=== PATIENT | male | born 1935 | race Caucasian/White ===

== ENCOUNTER 2016-06-05 09:24 | Outpatient (RCR) | payer MEDICARE, OTHER ==
--- OUTSIDE RECORDS SUMMARY | 2016-03-19 09:25 | XMS REPORT | Continuity of Care Document ---
Author Author [facility] Organization [facility] Address Unknown Phone Unavailable Care Team Providers Care Derrick Boat Captain Name Role Phone EJ GASPAR DO PCP Insurance Providers Payer Name Policy Number Subscriber Name Relationship Wps Medicare [id number] Pat Choi 18 Self / Same As Patient CIGNA [id number] Pat Choi 18 Self / Same As Patient Advance Directives Directive Response Recorded Date/Time Advance Directives No 11/23/13 11:12am Health Care Power of Help Desk Associate No 11/23/13 11:12am Organ Donor No 11/23/13 11:12am Problems No known problems or medical conditions. Medications Medication Dose Route Sig Days/Qty Instructions Order Date Discontinued Date Status Lisinopril 10 Mg PO DAILY 10/23/13 11/19/13 Discontinued [Vicodin 5/325 Mg] 1-2 Tab PO EVERY 4HRS PRN PAIN 30 Qty 10/26/1302/23 Discontinued Lisinopril/Hydrochlorothiazide 0.5 Tab PO DAILY TAKES 1/2 OF (20-12.5) DAILY 11/19/13 Active Cholecalciferol 2,000 Unit PO DAILY 11/19/13 Active Hydrocodone Bit/Acetaminophen 1-2 Each PO EVERY 4HRS PRN PAIN 30 Qty Active Social History Social History Problem Response Recorded Date/Time Recent Foreign Travel No 09/06/2014 1:35pm Hospital Discharge Instructions No hospital discharge instructions. Plan of Care No plan of care. Functional Status No functional status results. Allergies, Adverse Reactions, Alerts Allergen Type Severity Reaction Status Last Updated No Known Drug Allergies Active 10/23/13 Immunizations No immunization records. Vital Signs No known vital signs results. Results Laboratory Results Test Name Result Units Flags Reference Collection Date/Time Result Date/ Time Comments White Blood Count 5.3 10^3/uL 4.3-11.0 09/06/2014 1:50pm 09/06/2014 1: 55pm Red Blood Count 3.82 10^6/uL L 4.35-5.85 09/06/2014 1:50pm 09/06/2014 1: 55pm Hemoglobin 11.7 G/DL L 13.3-17.7 09/06/2014 1:50pm 09/06/2014 1:55pm Hematocrit 35 % L 40-54 09/06/2014 1:50pm 09/06/2014 1:55pm Mean Corpuscular Volume 92 FL 80-99 09/06/2014 1:50pm 09/06/2014 1: 55pm Mean Corpuscular Hemoglobin 31 PG 25-34 09/06/2014 1:50pm 09/06/2014 1: 55pm Mean Corpuscular Hemoglobin Concent 33 G/DL 32-36 09/06/2014 1:50pm 1:55pm Red Cell Distribution Width 14.3 % 10.0-14.5 09/06/2014 1:50pm 2014 1:55pm Platelet Count 192 10^3/uL 130-400 09/06/2014 1:50pm 09/06/2014 1:55pm Mean Platelet Volume 8.4 FL 7.4-10.4 09/06/2014 1:50pm 09/06/2014 1: 55pm Neutrophils (%) (Auto) 64 % 42-75 09/06/2014 1:50pm 09/06/2014 1:55pm Lymphocytes (%) (Auto) 16 % 12-44 09/06/2014 1:50pm 09/06/2014 1:55pm Monocytes (%) (Auto) 12 % 0-12 09/06/2014 1:50pm 09/06/2014 1:55pm Eosinophils (%) (Auto) 8 % 0-10 09/06/2014 1:50pm 09/06/2014 1:55pm Basophils (%) (Auto) 0 % 0-10 09/06/2014 1:50pm 09/06/2014 1:55pm Neutrophils # (Auto) 3.4 X 10^3 1.8-7.8 09/06/2014 1:50pm 09/06/2014 1: 55pm Lymphocytes # (Auto) 0.9 X 10^3 L 1.0-4.0 09/06/2014 1:50pm 09/06/2014 1: 55pm Monocytes # (Auto) 0.6 X 10^3 0.0-1.0 09/06/2014 1:50pm 09/06/2014 1: 55pm Eosinophils # (Auto) 0.4 10^3/uL H 0.0-0.3 09/06/2014 1:50pm 09/06/2014 1 :55pm Basophils # (Auto) 0.0 10^3/uL 0.0-0.1 09/06/2014 1:50pm 09/06/2014 1: 55pm Sodium Level 143 MMOL/L 135-145 09/06/2014 1:50pm 09/06/2014 2:31pm Potassium Level 4.3 MMOL/L 3.6-5.0 09/06/2014 1:50pm 09/06/2014 2:31pm Chloride Level 110 MMOL/L H 98-107 09/06/2014 1:50pm 09/06/2014 2:31pm Carbon Dioxide Level 26 MMOL/L 21-32 09/06/2014 1:50pm 09/06/2014 2: 31pm Anion Gap 7 MMOL/L 5-14 09/06/2014 1:50pm 09/06/2014 2:31pm Blood Urea Nitrogen 19 MG/DL H 7-18 09/06/2014 1:5009/06/2014 2:31pm Creatinine 1.16 MG/DL 0.60-1.30 09/06/2014 1:50pm 09/06/2014 2:31pm BUN/Creatinine Ratio 16 09/06/2014 1:50pm 09/06/2014 2:31pm Estimat Glomerular Filtration Rate > 60 09/06/2014 1:50pm 2014 2:31pm GFR INTERPRETIVE DATA UNITS FOR ESTIMATED GFR (eGFR): mL/min/1.73 M2 REFERENCE RANGE FOR ESTIMATED GFR (eGFR) eGFR NORMAL eGFR >60 MODERATELY DECREASED eGFR 30-59 SEVERLY DECREASED eGFR 15-29 KIDNEY FAILURE <15 (OR DIALYSIS) Glucose Level 108 MG/DL H 70-105 09/06/2014 1:50pm 09/06/2014 2:31pm Calcium Level 9.3 MG/DL 8.5-10.1 09/06/2014 1:50pm 09/06/2014 2:31pm Total Bilirubin 0.5 MG/DL 0.1-1.0 09/06/2014 1:50pm 09/06/2014 2:31pm Alkaline Phosphatase 67 U/L 40-136 09/06/2014 1:5009/06/2014 2:31pm Aspartate Amino Transf (AST/SGOT) 17 U/L 5-34 09/06/2014 1:50pm 2014 2:31pm Alanine Aminotransferase (ALT/SGPT) 8 U/L 0-55 09/06/2014 1:50pm 2014 2:31pm Lactate Dehydrogenase 194 U/L 125-220 09/06/2014 1:5009/06/2014 2: 31pm Total Protein 6.2 G/DL L 6.4-8.2 09/06/2014 1:5009/06/2014 2:31pm Albumin 4.0 G/DL 3.2-4.5 09/06/2014 1:50pm 09/06/2014 2:31pm Procedures No known history of procedures. Encounters Encounter Location Date/Time Discharged Recurring Via [facility] 11/29/14 9:56am
[2016-03-19 09:33] LABS: BASOPHILS % (AUTO) 0 % (0-10); EOSINOPHILS # (AUTO) 0.1 10^3/uL (0.0-0.3); EOSINOPHILS % (AUTO) 3 % (0-10); LYMPHOCYTES % (AUTO) 20 % (12-44); MEAN CORPUSCULAR HEMOGLOBIN 30 PG (25-34); MEAN CORPUSCULAR HGB CONC 33 G/DL (32-36); MEAN CORPUSCULAR VOLUME 91 FL (80-99); MONOCYTES # (AUTO) 0.6 X 10^3 (0.0-1.0); MONOCYTES % (AUTO) 12 % (0-12); NEUTROPHILS # (AUTO) 3.2 X 10^3 (1.8-7.8); NEUTROPHILS % (AUTO) 65 % (42-75); PLATELET COUNT 187 10^3/uL (130-400); RED BLOOD COUNT 4.05 10^6/uL (4.35-5.85); RED CELL DISTRIBUTION WIDTH 13.9 % (10.0-14.5); WHITE BLOOD COUNT 4.9 10^3/uL (4.3-11.0)
[2016-03-19 10:14] LABS: ALBUMIN 3.9 G/DL (3.2-4.5); BILIRUBIN,TOTAL 0.4 MG/DL (0.1-1.0); CALCIUM 8.7 MG/DL (8.5-10.1); CREATININE SERUM 1.18 MG/DL (0.60-1.30); POTASSIUM 3.8 MMOL/L (3.6-5.0); TOTAL PROTEIN 5.7 G/DL (6.4-8.2)
[~2016-06-05 09:24] MED LIST changes: +ACETAMINOPHEN 325 MG TAB (TYLENOL) CANCER CTR PO PRN; +ACETAMINOPHEN 500 MG TAB (TYLENOL) CANCER CTR ONE; -BARIUM SUSPENSION 2.1% (VANILLA SILQ) 450 ML PO ONE; -CATHETER FLUSH 10 ML SYR IV PRN; -IOHEXOL 350 MG/ML 100 ML (OMNIPAQUE 350) VIAL IV ONE; -NS 100 ML (IVPB) BAG IV ONE; +NS IV 500 ML (CANCER CENTER) IV SCH; +diphenhydrAMINE 25 MG TAB (BENADRYL) CANCER CENTER PO SCH; +riTUXimab 500 MG, riTUXimab FOR IV INJ CONC 200 MG in NS (IVPB) CANCER CENTER 163 ML IV SCH
[2016-06-05 09:51] LABS: BASOPHILS % (AUTO) 0 % (0-10); EOSINOPHILS # (AUTO) 0.1 10^3/uL (0.0-0.3); EOSINOPHILS % (AUTO) 2 % (0-10); LYMPHOCYTES # (AUTO) 1.1 X 10^3 (1.0-4.0); LYMPHOCYTES % (AUTO) 20 % (12-44); MEAN CORPUSCULAR HEMOGLOBIN 30 PG (25-34); MEAN CORPUSCULAR HGB CONC 33 G/DL (32-36); MEAN CORPUSCULAR VOLUME 91 FL (80-99); MEAN PLATELET VOLUME 9.3 FL (7.4-10.4); MONOCYTES # (AUTO) 0.5 X 10^3 (0.0-1.0); MONOCYTES % (AUTO) 9 % (0-12); NEUTROPHILS # (AUTO) 3.8 X 10^3 (1.8-7.8); NEUTROPHILS % (AUTO) 68 % (42-75); PLATELET COUNT 182 10^3/uL (130-400); RED BLOOD COUNT 4.23 10^6/uL (4.35-5.85); WHITE BLOOD COUNT 5.5 10^3/uL (4.3-11.0)
[2016-06-05 10:19] LABS: BILIRUBIN,TOTAL 0.5 MG/DL (0.1-1.0); CALCIUM 8.8 MG/DL (8.5-10.1); CREATININE SERUM 1.22 MG/DL (0.60-1.30); TOTAL PROTEIN 5.7 G/DL (6.4-8.2)
== END 2016-06-17 | disposition home or self-care (01) ==
LOC: ONC 09:24
PROVIDERS: ATTEND Internal Medicine Hematology & Oncology
DX: Z51.11 Encounter for antineoplastic chemotherapy (principal); C82.18 Follicular lymphoma grade II, lymph nodes of multiple sites; I89.0 Lymphedema, not elsewhere classified; K21.9 Gastro-esophageal reflux disease without esophagitis; I10 Essential (primary) hypertension; Z79.899 Other long term (current) drug therapy
CPT/HCPCS: 36591; 71260; 74177; 80053; 83615; 85025; 96413; 99213

== ENCOUNTER → 2016-06-05 | Outpatient (CLI) | payer MEDICARE, OTHER ==
[~2016-06-05] MED LIST: BARIUM SUSPENSION 2.1% (VANILLA SILQ) 450 ML PO ONE; CATHETER FLUSH 10 ML SYR IV PRN; CHOL2000 PO; HYDR-3454 PO; IOHEXOL 350 MG/ML 100 ML (OMNIPAQUE 350) VIAL IV ONE; LISI10TA2 PO; LISI1TAB8 PO; NS 100 ML (IVPB) BAG IV ONE; VICODIN PO
--- OUTSIDE RECORDS SUMMARY | 2016-06-05 09:58 | XMS REPORT | Continuity of Care Document ---
Author Author [facility] Organization [facility] Address Unknown Phone Unavailable Care Team Providers Care Prospecting Driller Helper Name Role Phone EJ GASPAR DO PCP Insurance Providers Payer Name Policy Number Subscriber Name Relationship Wps Medicare [id number] Pat Choi 18 Self / Same As Patient CIGNA [id number] Pat Choi 18 Self / Same As Patient Advance Directives Directive Response Recorded Date/Time Advance Directives No 11/23/13 11:12am Health Care Power of Builder'S Labourer No 11/23/13 11:12am Organ Donor No 11/23/13 [...] Encounters Encounter Location Date/Time Discharged Recurring Via [facility] 11/29/14 9:56am
--- NOTE | 2016-06-05 12:08 | Diagnostic Imaging Report ---
PROCEDURE: CT chest, abdomen, and pelvis with contrast. TECHNIQUE: Multiple contiguous axial images were obtained through the chest, abdomen, and pelvis after the administration of intravenous contrast. INDICATION: Lymphoma. FINDINGS: The PET/CT exam performed on 03/02/14 noted a mild increase in foci of hypermetabolism in the mediastinum and hilum. There is no significant lymph node involvement, however. On this study, there is no mediastinal or hilar adenopathy that would suggest neoplastic disease. The heart size is within normal limits. There are coronary artery calcifications evident. The aorta is not abnormally dilated. There is no defect within the pulmonary arteries to indicate a pulmonary embolus. The lungs are clear and well aerated. There is no parenchymal lung mass and there is no evidence for failure, pneumonia or pleural effusion. The thyroid gland is not enlarged. On the initial postcontrast series through the liver, there were 3 or 4 roughly 2 cm poorly defined areas of enhancement in the right lobe of the liver. These areas of enhancement did not persist on the delayed series. The PET/CT exam also failed to show any sign of metastatic disease involving the liver. I suspect that the areas of enhancement seen on the initial postcontrast series were secondary to hemangioma formation. However, these findings were not clearly evident on the previous CT chest exam performed on 01/27/10. Most of the inferior pole of the right lobe of the liver, however, was not included on the prior exam. MRI of the abdomen with Eovist would be recommended for further evaluation. The sections through the abdomen show the spleen, gallbladder, pancreas, adrenals, kidneys, aorta and inferior vena cava are unremarkable for an acute abnormality. There are cysts associated with both kidneys including a 4.2 cm cyst along the inferior pole of the right kidney and a 5.8 cm cyst along the inferior pole of the left kidney. These cysts have a generally benign appearance. The stomach is partially filled with oral contrast and consequently difficult to assess. There is no obvious gastric abnormality evident. There is no pelvic mass or free fluid collection noted. The appendix was not well visualized but there are no indirect signs of acute appendicitis. There may be a few diverticula in the sigmoid colon but there is no sign of acute diverticulitis. The urinary bladder is grossly unremarkable. The prostate gland is borderline enlarged but unchanged in size when compared to the prior PET/CT exam. The bone windows show no sign of a fracture or of a destructive lesion. IMPRESSION: 1. There is no mediastinal or hilar adenopathy to suggest recurrent neoplasm. No other adenopathy is identified either. 2. The areas of enhancement in the right lobe of the liver seen on the initial postcontrast series are more likely due to hemangioma formation than to metastatic disease. Recommendations as above. 3. There is no acute abnormality of the abdomen or pelvis. 4. The prostate gland is mildly enlarged but stable. Dictated by: Dictated on workstation # [id number]
== END ==
LOC: RAD 09:55
PROVIDERS: ATTEND Internal Medicine Hematology & Oncology
DX: C82.18 Follicular lymphoma grade II, lymph nodes of multiple sites (principal)
CPT/HCPCS: 71260; 74177

== ENCOUNTER → 2016-06-12 | Outpatient (CLI) | payer MEDICARE, OTHER ==
[~2016-06-12] MED LIST changes: -ACETAMINOPHEN 325 MG TAB (TYLENOL) CANCER CTR PO PRN; -ACETAMINOPHEN 500 MG TAB (TYLENOL) CANCER CTR ONE; -NS IV 500 ML (CANCER CENTER) IV SCH; -diphenhydrAMINE 25 MG TAB (BENADRYL) CANCER CENTER PO SCH; -riTUXimab 500 MG, riTUXimab FOR IV INJ CONC 200 MG in NS (IVPB) CANCER CENTER 163 ML IV SCH
--- OUTSIDE RECORDS SUMMARY | 2016-06-12 10:17 | XMS REPORT | Continuity of Care Document ---
Author Author [facility] Organization [facility] Address Unknown Phone Unavailable Care Team Providers Care Environmental Engineering Technician Name Role Phone EJ GASPAR DO PCP Insurance Providers Payer Name Policy Number Subscriber Name Relationship Wps Medicare [id number] Pat Choi 18 Self / Same As Patient CIGNA [id number] Pat Choi 18 Self / Same As Patient Advance Directives Directive Response Recorded Date/Time Advance Directives No 11/23/13 11:12am Health Care Power of Chief Credit Officer No 11/23/13 11:12am Organ Donor No 11/23/13 [...] Encounters Encounter Location Date/Time Discharged Recurring Via [facility] 11/29/14 9:56am
== END ==
LOC: FS 10:15
PROVIDERS: ATTEND Internal Medicine Hematology & Oncology
DX: C82.18 Follicular lymphoma grade II, lymph nodes of multiple sites (principal); I89.0 Lymphedema, not elsewhere classified; K21.9 Gastro-esophageal reflux disease without esophagitis; I10 Essential (primary) hypertension; Z79.899 Other long term (current) drug therapy
CPT/HCPCS: 99213

== ENCOUNTER → 2016-07-17 | Outpatient (CLI) | payer MEDICARE, OTHER ==
--- OUTSIDE RECORDS SUMMARY | 2016-07-17 13:48 | XMS REPORT | Continuity of Care Document ---
Author Author [facility] Organization [facility] Address Unknown Phone Unavailable Care Team Providers Care Design Printing Machine Set Up Operator Name Role Phone EJ GASPAR DO PCP Insurance Providers Payer Name Policy Number Subscriber Name Relationship Wps Medicare [id number] Pat Choi 18 Self / Same As Patient CIGNA [id number] Pat Choi 18 Self / Same As Patient Advance Directives Directive Response Recorded Date/Time Advance Directives No 11/23/13 11:12am Health Care Power of Density Control Puncher No 11/23/13 11:12am Organ Donor No 11/23/13 [...] Encounters Encounter Location Date/Time Discharged Recurring Via [facility] 11/29/14 9:56am
== END ==
LOC: FS 13:46
PROVIDERS: ATTEND Internal Medicine Hematology & Oncology
DX: C82.18 Follicular lymphoma grade II, lymph nodes of multiple sites (principal); I89.0 Lymphedema, not elsewhere classified; K21.9 Gastro-esophageal reflux disease without esophagitis; I10 Essential (primary) hypertension; Z79.899 Other long term (current) drug therapy; Z45.2 Encounter for adjustment and management of vascular access device
CPT/HCPCS: 96523

== ENCOUNTER → 2016-09-04 | Outpatient (CLI) | payer MEDICARE, OTHER | LOC: FS 10:48 | PROVIDERS: ATTEND Internal Medicine Hematology & Oncology | DX: C82.18 Follicular lymphoma grade II, lymph nodes of multiple sites (principal); I89.0 Lymphedema, not elsewhere classified; K21.9 Gastro-esophageal reflux disease without esophagitis; I10 Essential (primary) hypertension; Z79.899 Other long term (current) drug therapy; Z45.2 Encounter for adjustment and management of vascular access device | CPT/HCPCS: 96523; 99213 ==

== ENCOUNTER → 2016-10-16 | Outpatient (CLI) | payer MEDICARE, OTHER | LOC: FS 11:58 | PROVIDERS: ATTEND Internal Medicine Hematology & Oncology | DX: C82.18 Follicular lymphoma grade II, lymph nodes of multiple sites (principal); Z45.2 Encounter for adjustment and management of vascular access device | CPT/HCPCS: 96523 ==

== ENCOUNTER → 2016-12-04 | Outpatient (CLI) | payer MEDICARE, OTHER | LOC: FS 10:41 | PROVIDERS: ATTEND Internal Medicine Hematology & Oncology | DX: C82.18 Follicular lymphoma grade II, lymph nodes of multiple sites (principal); I89.0 Lymphedema, not elsewhere classified; K21.9 Gastro-esophageal reflux disease without esophagitis; I10 Essential (primary) hypertension; Z79.899 Other long term (current) drug therapy; Z45.2 Encounter for adjustment and management of vascular access device | CPT/HCPCS: 96523 ==

== ENCOUNTER 2017-01-28 11:46 | Outpatient (RCR) | payer MEDICARE, OTHER | END 2017-02-09 | LOC: ONC 11:46 | PROVIDERS: ATTEND Internal Medicine Hematology & Oncology | DX: C85.80 Other specified types of non-Hodgkin lymphoma, unspecified site (principal); Z45.2 Encounter for adjustment and management of vascular access device | CPT/HCPCS: 96523 ==

== ENCOUNTER → 2017-02-26 | Outpatient (CLI) | payer MEDICARE, OTHER ==
[~2017-02-26] MED LIST changes: +BARIUM SUSPENSION 2.1% (VANILLA SILQ) 450 ML PO ONE; +IOHEXOL 350 MG/ML 100 ML (OMNIPAQUE 350) VIAL IV ONE; +NS 100 ML (IVPB) BAG IV ONE
--- NOTE | 2017-02-26 12:59 | Diagnostic Imaging Report ---
PROCEDURE: CT chest with contrast, CT abdomen and pelvis with and without contrast. TECHNIQUE: Pre and post intravenous contrast axial imaging of the abdomen and pelvis and post contrast axial imaging of the chest were performed. INDICATION: Lymphoma. 100 mL of Omnipaque 350 is administered intravenously. COMPARISON: 06/05/2016. FINDINGS: CT CHEST: The lungs demonstrate no significant consolidation, mass or suspicious nodule. There is minimal atelectasis in the medial aspect of the right lower lobe. There is no mediastinal mass or lymphadenopathy seen. No axillary or hilar lymph nodes seen. The thoracic aorta is normal in caliber. The heart size is normal. No pleural or pericardial effusion. The thoracic spine demonstrates mild degenerative changes. There is a right internal jugular infusion port with the tip terminating at the SVC. CT ABDOMEN AND PELVIS: The liver demonstrates subcentimeter hypodense lesions too small to accurately characterize. A dominant hypodense lesion in the inferior aspect of the right hepatic lobe however appears to become partially isodense on delayed phase imaging, may relate to a hemangioma. Previously seen other hyperenhancing lesions on the arterial phase are not present on the current exam. This could be related to the different phase of imaging. The gallbladder, the spleen, the adrenal glands, and the pancreas appear unremarkable. The kidneys have symmetric enhancement and contrast excretion. There is no hydronephrosis. There are multiple simple appearing cysts. The kidneys demonstrate no stones or hydronephrosis. The unenhanced phase demonstrates no ureteric or bladder stones either. The multiple calcifications seen in the pelvis are likely phleboliths. The abdominal aorta is normal in caliber. No para-aortic significantly enlarged lymph node is seen. There is a tiny fat-containing umbilical hernia. There is atrophy of the medial aspect of the right rectus muscle. Surgical clips are seen in the right inguinal region. There are mildly enlarged lymph nodes along the right external iliac node station measuring up to 2.5 x 1.7 cm. This compares to the previous scan measurements of 2.2 x 1.4 cm. No other lymphadenopathy is seen in the abdomen or pelvis. The prostate is mildly enlarged at 5.3 cm in transverse dimension. No bowel obstruction. No significant free fluid or fluid collection in the abdomen or pelvis is seen. The osseous structures demonstrate prominent degenerative changes in the lumbar spine and in the hip joints. IMPRESSION: CT CHEST: No soft tissue mass or significant lymphadenopathy seen. CT ABDOMEN AND PELVIS: 1. Mild enlargement in the right external iliac lymph nodes measuring 2.5 x 1.7 cm in maximum axial dimensions, slightly larger compared to 06/05/2016 concerning for lymphoma recurrence. 2. Tiny fat-containing umbilical hernia. Dictated by: Dictated on workstation # [id number]
== END ==
LOC: RAD 10:12
PROVIDERS: ATTEND Internal Medicine Hematology & Oncology
DX: C82.18 Follicular lymphoma grade II, lymph nodes of multiple sites (principal); Z01.89 Encounter for other specified special examinations
CPT/HCPCS: 71260; 74178

== ENCOUNTER 2017-03-26 13:59 | Outpatient (RCR) | payer MEDICARE, OTHER ==
[2017-02-26 09:54] LABS: BASOPHILS % (AUTO) 0 % (0-10); EOSINOPHILS # (AUTO) 0.1 10^3/uL (0.0-0.3); EOSINOPHILS % (AUTO) 2 % (0-10); HEMATOCRIT 39 % (40-54); HEMOGLOBIN 12.7 G/DL (13.3-17.7); LYMPHOCYTES # (AUTO) 1.1 X 10^3 (1.0-4.0); LYMPHOCYTES % (AUTO) 27 % (12-44); MEAN CORPUSCULAR HEMOGLOBIN 30 PG (25-34); MEAN CORPUSCULAR HGB CONC 33 G/DL (32-36); MEAN CORPUSCULAR VOLUME 91 FL (80-99); MEAN PLATELET VOLUME 9.6 FL (7.4-10.4); MONOCYTES # (AUTO) 0.5 X 10^3 (0.0-1.0); MONOCYTES % (AUTO) 12 % (0-12); NEUTROPHILS # (AUTO) 2.4 X 10^3 (1.8-7.8); NEUTROPHILS % (AUTO) 59 % (42-75); PLATELET COUNT 170 10^3/uL (130-400); RED BLOOD COUNT 4.27 10^6/uL (4.35-5.85); RED CELL DISTRIBUTION WIDTH 13.8 % (10.0-14.5); WHITE BLOOD COUNT 4.1 10^3/uL (4.3-11.0)
[2017-02-26 10:17] LABS: BILIRUBIN,TOTAL 0.5 MG/DL (0.1-1.0); CALCIUM 8.9 MG/DL (8.5-10.1); CREATININE SERUM 1.25 MG/DL (0.60-1.30); POTASSIUM 4.1 MMOL/L (3.6-5.0); TOTAL PROTEIN 6.4 GM/DL (6.4-8.2)
[~2017-03-26 13:59] MED LIST changes: -BARIUM SUSPENSION 2.1% (VANILLA SILQ) 450 ML PO ONE; -IOHEXOL 350 MG/ML 100 ML (OMNIPAQUE 350) VIAL IV ONE; -NS 100 ML (IVPB) BAG IV ONE
== END 2017-05-27 | disposition home or self-care (01) ==
LOC: ONC 13:59
PROVIDERS: ATTEND Internal Medicine Hematology & Oncology
DX: C82.18 Follicular lymphoma grade II, lymph nodes of multiple sites (principal); I89.0 Lymphedema, not elsewhere classified; K21.9 Gastro-esophageal reflux disease without esophagitis; I10 Essential (primary) hypertension; Z79.899 Other long term (current) drug therapy
CPT/HCPCS: 36591; 80053; 83615; 85025; 99213

== ENCOUNTER → 2017-07-22 | Outpatient (CLI) | payer MEDICARE, OTHER | LOC: CARD 12:07 | PROVIDERS: ATTEND Internal Medicine Interventional Cardiology | DX: R42 Dizziness and giddiness (principal); R55 Syncope and collapse; I10 Essential (primary) hypertension | CPT/HCPCS: 93306 ==

== ENCOUNTER 2017-08-15 09:11 | Outpatient (RCR) | payer MEDICARE, OTHER | END 2017-10-20 | disposition home or self-care (01) | LOC: CARD 09:11 | PROVIDERS: ATTEND Internal Medicine Interventional Cardiology | DX: R42 Dizziness and giddiness (principal); R55 Syncope and collapse; I10 Essential (primary) hypertension | CPT/HCPCS: 93270 ==

== ENCOUNTER 2017-09-17 09:16 | Outpatient (RCR) | payer MEDICARE, OTHER ==
[2017-06-25 09:35] LABS: BASOPHILS % (AUTO) 0 % (0-10); EOSINOPHILS # (AUTO) 0.1 10^3/uL (0.0-0.3); EOSINOPHILS % (AUTO) 2 % (0-10); HEMATOCRIT 36 % (40-54); HEMOGLOBIN 11.9 G/DL (13.3-17.7); LYMPHOCYTES % (AUTO) 21 % (12-44); MEAN CORPUSCULAR HEMOGLOBIN 30 PG (25-34); MEAN CORPUSCULAR HGB CONC 33 G/DL (32-36); MEAN CORPUSCULAR VOLUME 91 FL (80-99); MEAN PLATELET VOLUME 9.6 FL (7.4-10.4); MONOCYTES # (AUTO) 0.5 X 10^3 (0.0-1.0); MONOCYTES % (AUTO) 11 % (0-12); NEUTROPHILS # (AUTO) 3.1 X 10^3 (1.8-7.8); NEUTROPHILS % (AUTO) 66 % (42-75); PLATELET COUNT 176 10^3/uL (130-400); RED BLOOD COUNT 3.97 10^6/uL (4.35-5.85); RED CELL DISTRIBUTION WIDTH 14.6 % (10.0-14.5); WHITE BLOOD COUNT 4.7 10^3/uL (4.3-11.0)
[2017-06-25 09:57] LABS: ALBUMIN 3.8 GM/DL (3.2-4.5); BILIRUBIN,TOTAL 0.4 MG/DL (0.1-1.0); CALCIUM 8.7 MG/DL (8.5-10.1); CREATININE SERUM 1.37 MG/DL (0.60-1.30); POTASSIUM 3.8 MMOL/L (3.6-5.0)
[~2017-09-17 09:16] MED LIST changes: -BARIUM SUSPENSION 2.1% (VANILLA SILQ) 450 ML PO ONE; -IOHEXOL 350 MG/ML 100 ML (OMNIPAQUE 350) VIAL IV ONE; -NS 250 ML (IVPB) BAG IV ONE
[2017-09-17 09:54] LABS: BASOPHILS % (AUTO) 0 % (0-10); EOSINOPHILS # (AUTO) 0.1 10^3/uL (0.0-0.3); EOSINOPHILS % (AUTO) 1 % (0-10); HEMATOCRIT 38 % (40-54); HEMOGLOBIN 12.4 G/DL (13.3-17.7); LYMPHOCYTES # (AUTO) 0.8 X 10^3 (1.0-4.0); LYMPHOCYTES % (AUTO) 12 % (12-44); MEAN CORPUSCULAR HEMOGLOBIN 29 PG (25-34); MEAN CORPUSCULAR HGB CONC 33 G/DL (32-36); MEAN CORPUSCULAR VOLUME 90 FL (80-99); MEAN PLATELET VOLUME 9.3 FL (7.4-10.4); MONOCYTES # (AUTO) 0.6 X 10^3 (0.0-1.0); MONOCYTES % (AUTO) 9 % (0-12); NEUTROPHILS # (AUTO) 5.2 X 10^3 (1.8-7.8); NEUTROPHILS % (AUTO) 78 % (42-75); PLATELET COUNT 202 10^3/uL (130-400); RED BLOOD COUNT 4.21 10^6/uL (4.35-5.85); RED CELL DISTRIBUTION WIDTH 14.6 % (10.0-14.5); WHITE BLOOD COUNT 6.7 10^3/uL (4.3-11.0)
[2017-09-17 10:19] LABS: ALBUMIN 4.1 GM/DL (3.2-4.5); BILIRUBIN,TOTAL 0.7 MG/DL (0.1-1.0); CALCIUM 8.8 MG/DL (8.5-10.1); CREATININE SERUM 1.4 MG/DL (0.60-1.30); POTASSIUM 4.2 MMOL/L (3.6-5.0)
== END 2017-09-23 | disposition home or self-care (01) ==
LOC: ONC 09:16
PROVIDERS: ATTEND Internal Medicine Hematology & Oncology
DX: C82.18 Follicular lymphoma grade II, lymph nodes of multiple sites (principal); I89.0 Lymphedema, not elsewhere classified; K21.9 Gastro-esophageal reflux disease without esophagitis; I10 Essential (primary) hypertension; Z79.899 Other long term (current) drug therapy
CPT/HCPCS: 36591; 80053; 83615; 85025

== ENCOUNTER → 2017-09-17 | Outpatient (CLI) | payer MEDICARE, OTHER ==
[~2017-09-17] MED LIST changes: +BARIUM SUSPENSION 2.1% (VANILLA SILQ) 450 ML PO ONE; +IOHEXOL 350 MG/ML 100 ML (OMNIPAQUE 350) VIAL IV ONE; +NS 250 ML (IVPB) BAG IV ONE
--- NOTE | 2017-09-17 12:47 | Diagnostic Imaging Report ---
PROCEDURE: CT chest, abdomen, and pelvis with contrast. TECHNIQUE: Multiple contiguous axial images were obtained through the chest, abdomen, and pelvis after the administration of intravenous contrast. INDICATION: Hodgkin's lymphoma. FINDINGS: The previous CT chest, abdomen, and pelvis exam of 02/26/2017 noted mild enlargement of the right external iliac lymph node. The lymph node measured 1.7 x 2.5 cm. On this exam, that lymph node is again identified and virtually unchanged in size. No other iliac chain, inguinal, periaortic, or retroperitoneal adenopathy is identified. The images through the thorax also fail to show any sign of mediastinal or hilar adenopathy, and there is no axillary or supraclavicular adenopathy identified either. The overall appearance of the abdomen itself has not changed significantly otherwise. The liver is stable in size. The small 13 mm hypodense area in the right lobe of the liver inferiorly seen on the prior study is again evident and not significantly changed. This finding may represent a small cyst or hemangioma. The liver is otherwise homogeneous. The cysts associated with the kidneys seen previously are again evident and unchanged. There is no solid mass identified, and both kidneys do show excretion of the contrast. The gallbladder, the spleen, the pancreas, the adrenals, the aorta, and the inferior vena cava are unremarkable for an acute abnormality. The stomach is filled with oral contrast and difficult to assess. There is no pelvic mass or free fluid collection noted. The prostate gland is at the upper limits of normal. The appendix does not appear to be abnormally thickened. The images through the thorax show that the heart size is within normal limits. Coronary artery calcifications are evident. The aorta is not abnormally dilated, and there is no sign of a dissection. The pulmonary arteries were not fully opacified and consequently difficult to assess. There is no obvious defect to suggest a pulmonary embolus. The lungs are clear. The thyroid gland is unremarkable. The bone windows show no evidence for a fracture or for a destructive lesion. There is a port in place on the right with the tip of the catheter in the distal superior vena cava. IMPRESSION: 1. The small lymph node in the right external iliac chain seen on the prior study is again evident and no different. No new adenopathy has developed otherwise. 2. There is no acute abnormality of the chest, abdomen, or pelvis. Overall, there has been no adverse change since the prior exam. Dictated by: Dictated on workstation # [id number]
== END ==
LOC: RAD 09:46
PROVIDERS: ATTEND Internal Medicine Hematology & Oncology
DX: C82.90 Follicular lymphoma, unspecified, unspecified site (principal)
CPT/HCPCS: 71260; 74177

== ENCOUNTER 2017-11-21 16:05 | Outpatient (RCR) | payer MEDICARE, OTHER | END 2017-12-23 | disposition home or self-care (01) | LOC: ONC 16:05 | PROVIDERS: ATTEND Internal Medicine Hematology & Oncology | DX: C82.18 Follicular lymphoma grade II, lymph nodes of multiple sites (principal); I89.0 Lymphedema, not elsewhere classified; K21.9 Gastro-esophageal reflux disease without esophagitis; I10 Essential (primary) hypertension; Z79.899 Other long term (current) drug therapy; Z45.2 Encounter for adjustment and management of vascular access device | CPT/HCPCS: 96523 ==

== ENCOUNTER 2017-12-24 09:11 | Outpatient (RCR) | payer MEDICARE, OTHER ==
[2017-12-24 09:35] LABS: BASOPHILS % (AUTO) 0 % (0-10); EOSINOPHILS # (AUTO) 0.2 10^3/uL (0.0-0.3); EOSINOPHILS % (AUTO) 5 % (0-10); HEMATOCRIT 37 % (40-54); HEMOGLOBIN 12.2 G/DL (13.3-17.7); LYMPHOCYTES % (AUTO) 23 % (12-44); MEAN CORPUSCULAR HEMOGLOBIN 30 PG (25-34); MEAN CORPUSCULAR HGB CONC 33 G/DL (32-36); MEAN CORPUSCULAR VOLUME 92 FL (80-99); MEAN PLATELET VOLUME 9.4 FL (7.4-10.4); MONOCYTES # (AUTO) 0.5 X 10^3 (0.0-1.0); MONOCYTES % (AUTO) 11 % (0-12); NEUTROPHILS # (AUTO) 2.7 X 10^3 (1.8-7.8); NEUTROPHILS % (AUTO) 61 % (42-75); PLATELET COUNT 196 10^3/uL (130-400); RED BLOOD COUNT 4.05 10^6/uL (4.35-5.85); RED CELL DISTRIBUTION WIDTH 14.9 % (10.0-14.5); WHITE BLOOD COUNT 4.4 10^3/uL (4.3-11.0)
[2017-12-24 09:50] LABS: ALBUMIN 3.9 GM/DL (3.2-4.5); BILIRUBIN,TOTAL 0.5 MG/DL (0.1-1.0); CALCIUM 8.8 MG/DL (8.5-10.1); CREATININE SERUM 1.39 MG/DL (0.60-1.30); POTASSIUM 4.2 MMOL/L (3.6-5.0)
== END 2018-01-10 | disposition home or self-care (01) ==
LOC: ONC 09:11
PROVIDERS: ATTEND Internal Medicine Hematology & Oncology
DX: C82.18 Follicular lymphoma grade II, lymph nodes of multiple sites (principal); I89.0 Lymphedema, not elsewhere classified; K21.9 Gastro-esophageal reflux disease without esophagitis; I10 Essential (primary) hypertension; Z79.899 Other long term (current) drug therapy
CPT/HCPCS: 36591; 80053; 83615; 85025

== ENCOUNTER → 2018-03-10 | Outpatient (CLI) | payer MEDICARE, OTHER ==
[~2018-03-10] MED LIST changes: +BARIUM SUSPENSION 2.1% (VANILLA SILQ) 450 ML PO ONE; +CATHETER FLUSH 10 ML SYR IV PRN; +CHOL200059 PO; +IOHEXOL 350 MG/ML 100 ML (OMNIPAQUE 350) VIAL IV ONE; +NS 250 ML (IVPB) BAG IV ONE
--- NOTE | 2018-03-10 12:44 | Diagnostic Imaging Report ---
PROCEDURE: CT chest with contrast, CT abdomen and pelvis with and without contrast. TECHNIQUE: Pre and post intravenous contrast axial imaging of the abdomen and pelvis and post contrast axial imaging of the chest were performed. INDICATION: Lymphoma, followup. Comparison is made with prior CT from 09/17/2017. CT chest: A right chest wall port has the tip in the superior vena cava. No axillary lymphadenopathy is seen. No hilar or mediastinal lymphadenopathy is detected. No pericardial or pleural fluid is identified. No pulmonary infiltrate, nodule or mass is identified. There is minimal scarring in the lingula. CT abdomen and pelvis: Previously noted low density within the liver is barely visible on today's study. No new liver mass is identified. The gallbladder is unremarkable. The pancreas and spleen are unremarkable. No adrenal mass is detected. Bilateral cortical low densities involving the kidneys appear stable and suggestive of cysts. The aorta is nonaneurysmal. No central retroperitoneal or mesenteric lymphadenopathy is seen. The small and large bowel loops are normal caliber. There is no ascites. Right groin lymph node previously described measures 2.2 x 1.8 cm compared with 2.5 x 1.6 cm. No internal iliac or obturator lymphadenopathy is seen. No other abnormalities detected. The bladder is unremarkable. Prostate appears to be stable, moderately prominent. Bony structures are nonacute. IMPRESSION: Stable CT of the chest, abdomen and pelvis when compared with exam from 09/17/2017. No thoracic or abdominal lymphadenopathy is seen. Right groin node adjacent to the right external iliac artery and vein appears stable. No new lymphadenopathy is seen. Dictated by: Dictated on workstation # [id number]
== END ==
LOC: RAD 11:15
PROVIDERS: ATTEND Nurse Practitioner Adult Health
DX: C82.18 Follicular lymphoma grade II, lymph nodes of multiple sites (principal)
CPT/HCPCS: 71260; 74178

== ENCOUNTER 2018-03-26 05:41 | Outpatient (CLI) | payer MEDICARE, OTHER ==
[~2018-03-26] VITALS: Ht 182.9 cm; Wt 73.5 kg
[~2018-03-26 05:41] MED LIST changes: -BARIUM SUSPENSION 2.1% (VANILLA SILQ) 450 ML PO ONE; -CATHETER FLUSH 10 ML SYR IV PRN; -CHOL200059 PO; -IOHEXOL 350 MG/ML 100 ML (OMNIPAQUE 350) VIAL IV ONE; -NS 250 ML (IVPB) BAG IV ONE
[2018-03-26] MEDS ORDERED: LISI1TAB8 PO (13:57)
[2018-03-26] MEDS ORDERED: CHOL200059 PO (13:57)
== END 2018-03-26 13:58 | disposition home or self-care (01) ==
LOC: PREOP 05:41
PROVIDERS: ATTEND Surgery
DX: Z01.818 Encounter for other preprocedural examination (principal)

== ENCOUNTER 2018-03-31 11:46 | Day surgery (SDC) | payer MEDICARE, OTHER ==
[~2018-03-31] VITALS: Ht 182.9 cm; Wt 73.5 kg
[~2018-03-31 11:46] MED LIST changes: +CHOL200059 PO
--- NOTE | 2018-03-31 11:52 | Progress Note-Pre Operative ---
Pre-Operative Progress Note H&P Reviewed The H&P was reviewed, patient examined and no changes noted. Time Seen by Provider: 11:49 Date H&P Reviewed: Mar 31, 2018 Time H&P Reviewed: 11:51 Pre-Operative Diagnosis: hematochezia REVA VELÁSQUEZ DO Mar 31, 2018 11:52
[2018-03-31] MEDS ORDERED: LACTATED RINGERS 1,000 ML IV STA (12:02)
[2018-03-31 12:10] VITALS: BP 134/79
[2018-03-31] MEDS ORDERED: proPOfol 200 MG/20 ML (DIPRIVAN) VIAL IV ONE ×2 (12:22→13:05)
--- NOTE | 2018-03-31 13:14 | Progress Note-Post Operative ---
Post-Operative Progess Note Surgeon (s)/Donor Services Specialist (s) Surgeon REVA VELÁSQUEZ DO Donor Services Specialist: PETE Fernando Pre-Operative Diagnosis hematochezia Post-Operative Diagnosis Rectal polyp Diverticula Internal Hemorrhoid Procedure & Operative Findings Date of Procedure 03/31/18 Procedure Performed/Findings colon with snare colon with hot bx Anesthesia Type IV sedation by MOUNTER SAXOPHONES Estimated Blood Loss Estimated blood loss (mL): scant Specimens/Packing Specimens Removed Rectal polyp Descending colon polyp REVA VELÁSQUEZ DO Mar 31, 2018 13:14
--- NOTE | 2018-03-31 13:15 | Endoscopy Discharge Instruct ---
Endo Procedure/Findings Findings 1.: Polyp 2.: Diverticulosis 3.: Internal Hemorrhoids Discharge Instructions - Activity: You might feel a little sleepy until tomorrow. This is due to the medicine you received to relax you. Until tomorrow, you should: NOT drive a car, operate machinery or power tools. NOT drink any alcoholic beverages. NOT make any important decisions or sign importortant papers. Do not return to work until tomorrow, unless otherwise instructed. Resume previous activities tomorrow. Diet: Start by taking liquids. If you tolerate liquids, advance to solid food. Make an appointment for one week. Instructions: 1.: Colonoscopy in 1 year Notify Physician - If you experience excessive bleeding, unusual abdominal pain, fever, or chest pain, contact your doctor immediately. Follow-Up: - I have received and understand the above instructions and will call my doctor if I have any further questions. Patient Signature Date Nurse Signature Other (Relationship) REVA VELÁSQUEZ DO Mar 31, 2018 13:15
[2018-03-31 13:25] VITALS: BP 135/79
[2018-03-31 13:50] VITALS: BP 142/85
[2018-03-31 14:03] VITALS: BP 142/85
--- NOTE | 2018-03-31 14:08 | Anesthesia-General Post-Op ---
MAC Patient Condition Mental Status/LOC: Same as Preop Cardiovascular: Satisfactory Nausea/Vomiting: Absent Respiratory: Satisfactory Pain: Controlled Complications: Absent Post Op Complications Complications None Follow Up Care/Instructions Patient Instructions None needed. Anesthesiology Discharge Order Discharge Order Patient is doing well, no complaints, stable vital signs, no apparent adverse anesthesia problems. No complications reported per nursing. SOM STOVER CRNA Mar 31, 2018 14:08
--- NOTE | 2018-03-31 23:41 | OPERATIVE REPORT ---
DATE OF SERVICE: 03/31/2018 PREOPERATIVE DIAGNOSIS: Hematochezia. POSTOPERATIVE DIAGNOSES: 1. Colon polyps. 2. Diverticula. 3. Internal hemorrhoids. PROCEDURES: 1. Colonoscopy with snare polypectomy. 2. Colonoscopy with hot biopsy. SURGEON: Seth Parsons DO. PAINT MIXER MACHINE: Ruth Ann Sommer MS3. ANESTHESIA: IV sedation by the BRIDGE REPAIRER. SPECIMEN: One polyp from the sigmoid colon and then one large polyp from the rectum, possibly crossing the dentate line into the anus taken in pieces. BLOOD LOSS: Scant. FLUIDS: Per anesthesia. POSTOPERATIVE CONDITION: Stable. INDICATION FOR PROCEDURE: The patient is an 82-year-old male who had some rectal bleeding and it had been a while since he had a colonoscopy and needs a workup. FINDINGS: The patient had one small polyp in the sigmoid colon and had some small diverticula, some internal hemorrhoids, but had a large polyp in the rectum right at the dentate line and seemed to be crossing into the anal canal. PROCEDURE NOTE: After informed consent was obtained, the patient was brought to the endoscopy suite, placed in the bed in left lateral decubitus position. He was administered IV sedation by the BRIDGE REPAIRER who then monitored his vitals the entire time, heart rate, blood pressure and pulse ox and the scope was inserted, pushed all the way to about 140 cm, able to get to the cecum, took a picture of appendiceal orifice, noted the ileocecal valve and then able to get into the terminal ileum, took a picture and then slowly withdrew the scope insufflating to look circumferentially at the araya looking at the cecum up the ascending colon to the hepatic flexure, then down the transverse colon, the splenic flexure into the descending colon and just into the descending colon, saw small diverticula. I elected to do a hot biopsy of this to remove it and I removed the entire thing and then continued down to the descending colon, saw some diverticula, took a picture of this and continued down to the sigmoid and finally into the rectum, retroflexed the rectal vault and saw a large polyp. I elected to do a snare polypectomy. I removed this, took 3 bites to remove this en bloc and the third bite looked like it came across the dentate line into the anal canal. It was completely removed. I took pictures of this and then this was suctioned and I had to pull out the first one large piece, pulled out the rectum and the other two were able to suction out the scope. All 3 pieces were sent to pathology and noted some diverticula when I retroflexed. The scope was removed. The patient tolerated the procedure and recovered in the endoscopy suite. Job ID: [id number] DocumentID: [id number] Dictated Date: 03/31/2018 13:19:09 Elevator Starter Date: 03/31/2018 23:40:41 Dictated By: DO GREY MOTLEY
== END 2018-03-31 14:03 | disposition home or self-care (01) ==
LOC: ENDO 11:46
PROVIDERS: ATTEND Surgery
DX: D12.4 Benign neoplasm of descending colon (principal); D12.8 Benign neoplasm of rectum; K57.30 Diverticulosis of large intestine without perforation or abscess without bleeding; K64.8 Other hemorrhoids; I12.9 Hypertensive chronic kidney disease with stage 1 through stage 4 chronic kidney disease, or unspecified chronic kidney disease; N18.3 Chronic kidney disease, stage 3 (moderate); C85.90 Non-Hodgkin lymphoma, unspecified, unspecified site; E78.00 Pure hypercholesterolemia, unspecified; K21.9 Gastro-esophageal reflux disease without esophagitis; M79.7 Fibromyalgia; Z79.899 Other long term (current) drug therapy
CPT/HCPCS: 88305

== ENCOUNTER 2018-10-09 10:46 | Outpatient (RCR) | payer MEDICARE, OTHER ==
[2018-10-09 11:14] LABS: BASOPHILS % (AUTO) 0 % (0-10); EOSINOPHILS # (AUTO) 0.2 10^3/uL (0.0-0.3); EOSINOPHILS % (AUTO) 3 % (0-10); HEMATOCRIT 35 % (40-54); HEMOGLOBIN 11.6 G/DL (13.3-17.7); LYMPHOCYTES # (AUTO) 0.9 X 10^3 (1.0-4.0); LYMPHOCYTES % (AUTO) 14 % (12-44); MEAN CORPUSCULAR HEMOGLOBIN 30 PG (25-34); MEAN CORPUSCULAR HGB CONC 34 G/DL (32-36); MEAN CORPUSCULAR VOLUME 90 FL (80-99); MEAN PLATELET VOLUME 9.3 FL (7.4-10.4); MONOCYTES # (AUTO) 0.6 X 10^3 (0.0-1.0); MONOCYTES % (AUTO) 9 % (0-12); NEUTROPHILS # (AUTO) 4.7 X 10^3 (1.8-7.8); NEUTROPHILS % (AUTO) 74 % (42-75); PLATELET COUNT 200 10^3/uL (130-400); WHITE BLOOD COUNT 6.4 10^3/uL (4.3-11.0)
[2018-10-09 11:31] LABS: ALBUMIN 3.8 GM/DL (3.2-4.5); BILIRUBIN,TOTAL 0.4 MG/DL (0.1-1.0); CALCIUM 9.1 MG/DL (8.5-10.1); CREATININE SERUM 1.16 MG/DL (0.60-1.30); TOTAL PROTEIN 5.8 GM/DL (6.4-8.2)
== END 2018-11-02 | disposition home or self-care (01) ==
LOC: ONC 10:46
PROVIDERS: ATTEND Internal Medicine Hematology & Oncology
DX: C82.18 Follicular lymphoma grade II, lymph nodes of multiple sites (principal); K21.9 Gastro-esophageal reflux disease without esophagitis; I10 Essential (primary) hypertension; Z79.899 Other long term (current) drug therapy; Z45.2 Encounter for adjustment and management of vascular access device
CPT/HCPCS: 36591; 80053; 83615; 85025; 96523

== ENCOUNTER → 2019-02-02 | Outpatient (CLI) | payer MEDICARE, OTHER ==
--- NOTE | 2019-02-02 13:17 | Diagnostic Imaging Report ---
INDICATION: Chronic bronchitis. EXAMINATION: PA and lateral chest. FINDINGS: Right IJ Port-A-Cath tip projects over the SVC. Heart size and pulmonary vascularity are normal. Lungs are clear. There are no effusions or pneumothoraces. IMPRESSION: No acute abnormalities in the chest. Dictated by: Dictated on workstation # [id number]
== END ==
LOC: RAD FS 12:13
PROVIDERS: ATTEND Emergency Medicine
DX: J42 Unspecified chronic bronchitis (principal)
CPT/HCPCS: 71046

== ENCOUNTER 2019-05-07 14:06 | Outpatient (CLI) | payer MEDICARE, OTHER ==
[~2019-05-07] VITALS: Ht 182 cm; Wt 70.4 kg
== END 2019-05-07 14:37 | disposition home or self-care (01) ==
LOC: PREOP 14:06
PROVIDERS: ATTEND Surgery
DX: Z01.818 Encounter for other preprocedural examination (principal)

== ENCOUNTER 2019-05-19 12:50 | Outpatient (RCR) | payer MEDICARE, OTHER ==
[2019-03-26 11:25] LABS: BASOPHILS % (AUTO) 0 % (0-10); EOSINOPHILS # (AUTO) 0.1 10^3/uL (0.0-0.3); EOSINOPHILS % (AUTO) 3 % (0-10); HEMATOCRIT 36 % (40-54); HEMOGLOBIN 11.5 G/DL (13.3-17.7); LYMPHOCYTES # (AUTO) 0.9 X 10^3 (1.0-4.0); LYMPHOCYTES % (AUTO) 20 % (12-44); MEAN CORPUSCULAR HEMOGLOBIN 29 PG (25-34); MEAN CORPUSCULAR HGB CONC 32 G/DL (32-36); MEAN CORPUSCULAR VOLUME 92 FL (80-99); MEAN PLATELET VOLUME 9.2 FL (7.4-10.4); MONOCYTES # (AUTO) 0.6 X 10^3 (0.0-1.0); MONOCYTES % (AUTO) 14 % (0-12); NEUTROPHILS # (AUTO) 2.8 X 10^3 (1.8-7.8); NEUTROPHILS % (AUTO) 63 % (42-75); PLATELET COUNT 201 10^3/uL (130-400); RED CELL DISTRIBUTION WIDTH 14.7 % (10.0-14.5); WHITE BLOOD COUNT 4.4 10^3/uL (4.3-11.0)
[2019-03-26 11:39] LABS: ALBUMIN 3.9 GM/DL (3.2-4.5); BILIRUBIN,TOTAL 0.3 MG/DL (0.1-1.0); CALCIUM 8.7 MG/DL (8.5-10.1); CREATININE SERUM 1.22 MG/DL (0.60-1.30); POTASSIUM 4.2 MMOL/L (3.6-5.0); TOTAL PROTEIN 5.8 GM/DL (6.4-8.2)
[~2019-05-19 12:50] MED LIST changes: +LISI1TAB25 PO
== END 2019-06-24 | disposition home or self-care (01) ==
LOC: ONC 12:50
PROVIDERS: ATTEND Internal Medicine Hematology & Oncology
DX: C82.18 Follicular lymphoma grade II, lymph nodes of multiple sites (principal); Z87.19 Personal history of other diseases of the digestive system; Z79.899 Other long term (current) drug therapy
CPT/HCPCS: 36591; 80053; 83615; 85025; 96523

== ENCOUNTER → 2019-06-16 | Outpatient (CLI) | payer MEDICARE, OTHER ==
--- NOTE | 2019-06-16 16:36 | Diagnostic Imaging Report ---
EXAMINATION: Chest 2 views. HISTORY: Fall. Hit the middle of the chest on a space heater. COMPARISON: 02/02/2019. FINDINGS: A right port is visualized with the tip overlying the low SVC. The lung volumes are normal. No focal consolidation is seen. No large pleural effusion or pneumothorax is seen. The cardiomediastinal silhouette is normal in size and contour. Acute fracture is seen involving the body of the sternum, best visualized on the lateral view. IMPRESSION: 1. Acute fracture involving the body of the sternum. 2. No acute pleuroparenchymal process. 3. Stable configuration of the right port. Report given to Anthony Sunshine APRN at 04:35 p.m. 06/16/2019/cb Dictated by: Dictated on workstation # [id number]
== END ==
LOC: RAD FS 10:31
PROVIDERS: ATTEND Nurse Practitioner Family
DX: S22.22XA Fracture of body of sternum, initial encounter for closed fracture (principal); W19.XXXA Unspecified fall, initial encounter
CPT/HCPCS: 71046

== ENCOUNTER → 2019-09-15 | Outpatient (CLI) | payer MEDICARE, OTHER ==
[~2019-09-15] MED LIST changes: +CATHETER FLUSH 10 ML SYR IV PRN; +HOLD METFORMIN - RECEIVED CONTRAST 20 ML VIAL IV SCH; +IOHEXOL 350 MG/ML 100 ML (OMNIPAQUE 350) VIAL IV ONE; +NS 100 ML (IVPB) BAG IV ONE
--- NOTE | 2019-09-15 10:29 | Diagnostic Imaging Report ---
PROCEDURE: CT chest with contrast, CT abdomen and pelvis with and without contrast. TECHNIQUE: Pre and post intravenous contrast axial imaging of the abdomen and pelvis and post contrast axial imaging of the chest were performed. Auto Exposure Controls were utilized during the CT exam to meet ALARA standards for radiation dose reduction. INDICATION: Non-Hodgkin's lymphoma. FINDINGS: The previous CT chest, abdomen and pelvis exam of 03/10/2018 failed to show any sign of recurrent lymphoma. There is no acute abnormality of the chest, abdomen and pelvis noted otherwise. The previous study did note a stable appearing right groin lymph node. This measured 1.8 x 2.2 cm. On this exam that node is again identified. The node has increased in size and now measures 3.8 x 5.0 cm. There is also a 1.6 x 1.8 cm inguinal node on the right. Previously this node measured 0.8 x 0.7 cm. There is also a new 0.9 x 1.3 cm node in the right inguinal region. These findings are worrisome for recurrent neoplasm. There is no other pelvic adenopathy noted. There is no retroperitoneal or periaortic tamar adenopathy identified either. The images through the thorax failed to show any sign of mediastinal, hilar, axillary or supraclavicular adenopathy. The images through the thorax shows the heart is stable in size. Coronary calcifications are again noted. Aorta is not abnormally dilated. There is no sign of dissection. There is no defect within the pulmonary arteries to indicate pulmonary embolus. The lungs are generally clear. There is mild scar formation in the lingula. The thyroid gland appears stable when compared to the prior study. There is a right-sided Port-A-Cath in place with the tip of the catheter in the distal superior vena cava. The liver, spleen, adrenals, gallbladder, aorta and inferior vena cava are unremarkable for an acute abnormality. The cysts associated with both kidney seen previously are again evident and no different. The stomach is not well-distended and consequently difficult to assess. There is a considerable amount of radiopaque material throughout the colon. This may be secondary to ingested medication. Correlation with patient's history would be recommended. There is diverticulosis of the sigmoid and descending colon but there is no sign of acute diverticulitis. However, there does seem to generalized thickening of the wall of the right colon. This could be secondary to incomplete distention. The possibility that there is an element of mild colitis present should still be considered. There is no sign of acute appendicitis. The urinary bladder and prostate gland are grossly unremarkable. The bone windows do show a slightly depressed and slightly displaced subacute fracture of the midportion of the sternum. There is no acute bony abnormality noted otherwise. There is no sign of a destructive lesion either. IMPRESSION: 1. The right groin lymph node seen on the prior exam has increased in size. 2 new inguinal lymph nodes have also developed. 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 2. There is no other evidence for adenopathy in the chest, abdomen and pelvis. 3. The thickened appearance of the wall of the ascending colon does raise a question of colitis. Clinical follow-up is recommended. 4. There is no acute abnormality of the abdomen or pelvis noted otherwise. 5. However, there does appear to be a slightly depressed and slightly displaced subacute fracture of the mid body of sternum. Correlation with patient's history regarding trauma to this area would be recommended. Dictated by: Dictated on workstation # [id number]
== END ==
LOC: RAD FS 09-14 15:00
PROVIDERS: ATTEND Nurse Practitioner Adult Health
DX: C85.95 Non-Hodgkin lymphoma, unspecified, lymph nodes of inguinal region and lower limb (principal); K63.89 Other specified diseases of intestine; Z95.828 Presence of other vascular implants and grafts; Z87.828 Personal history of other (healed) physical injury and trauma
CPT/HCPCS: 71260; 74178

== ENCOUNTER 2019-11-17 13:15 | Outpatient (RCR) | payer MEDICARE, OTHER ==
[2019-09-10 14:36] LABS: BASOPHILS % (AUTO) 0 % (0-10); EOSINOPHILS # (AUTO) 0.1 10^3/uL (0.0-0.3); EOSINOPHILS % (AUTO) 2 % (0-10); HEMATOCRIT 36 % (40-54); HEMOGLOBIN 11.7 G/DL (13.3-17.7); LYMPHOCYTES # (AUTO) 1.1 X 10^3 (1.0-4.0); LYMPHOCYTES % (AUTO) 17 % (12-44); MEAN CORPUSCULAR HEMOGLOBIN 30 PG (25-34); MEAN CORPUSCULAR HGB CONC 32 G/DL (32-36); MEAN CORPUSCULAR VOLUME 92 FL (80-99); MEAN PLATELET VOLUME 9.3 FL (7.4-10.4); MONOCYTES # (AUTO) 0.7 X 10^3 (0.0-1.0); MONOCYTES % (AUTO) 11 % (0-12); NEUTROPHILS # (AUTO) 4.3 X 10^3 (1.8-7.8); NEUTROPHILS % (AUTO) 69 % (42-75); PLATELET COUNT 212 10^3/uL (130-400); RED CELL DISTRIBUTION WIDTH 14.8 % (10.0-14.5); WHITE BLOOD COUNT 6.2 10^3/uL (4.3-11.0)
[2019-09-10 14:56] LABS: ALANINE AMINOTRANSFERASE 10 U/L (0-55); ALBUMIN 3.9 GM/DL (3.2-4.5); ALKALINE PHOSPHATASE 87 U/L (40-136); BILIRUBIN,TOTAL 0.3 MG/DL (0.1-1.0); BUN/CREATININE RATIO 18; CALCIUM 8.5 MG/DL (8.5-10.1); CARBON DIOXIDE 20 MMOL/L (21-32); CHLORIDE 110 MMOL/L (98-107); CREATININE SERUM 1.15 MG/DL (0.60-1.30); GFR ESTIMATED > 60; GLUCOSE 101 MG/DL (70-105); POTASSIUM 3.9 MMOL/L (3.6-5.0); SODIUM 144 MMOL/L (135-145)
[~2019-11-17 13:15] MED LIST changes: -CATHETER FLUSH 10 ML SYR IV PRN; -HOLD METFORMIN - RECEIVED CONTRAST 20 ML VIAL IV SCH; -IOHEXOL 350 MG/ML 100 ML (OMNIPAQUE 350) VIAL IV ONE; -NS 100 ML (IVPB) BAG IV ONE
== END 2019-12-09 | disposition home or self-care (01) ==
LOC: ONC 13:15
PROVIDERS: ATTEND Internal Medicine Hematology & Oncology
DX: C82.18 Follicular lymphoma grade II, lymph nodes of multiple sites (principal); I12.9 Hypertensive chronic kidney disease with stage 1 through stage 4 chronic kidney disease, or unspecified chronic kidney disease; N18.3 Chronic kidney disease, stage 3 (moderate); Z92.21 Personal history of antineoplastic chemotherapy; Z87.19 Personal history of other diseases of the digestive system; Z79.899 Other long term (current) drug therapy; Z45.2 Encounter for adjustment and management of vascular access device
CPT/HCPCS: 80053; 83615; 85025; G0463; 36591; 96523

== ENCOUNTER 2019-12-24 13:24 | Emergency (ER) | payer MEDICARE, OTHER ==
[~2019-12-24] VITALS: Ht 182.9 cm; Wt 70.7 kg
[2019-12-24] MEDS ORDERED: LIDOCAINE 1% INJ 20 ML 20 ML VIAL ONE (13:53)
[2019-12-24] MEDS ORDERED: LIDOCAINE 1% INJ 20 ML 20 ML VIAL INJ ONE (14:30)
--- OUTSIDE RECORDS SUMMARY | 2019-12-24 14:31 | XMS REPORT | Continuity of Care Document ---
Author Organization Unknown Address Unknown Phone Unavailable Allergies Active Description Code Type Severity Reaction Onset Reported/Identified Relationship to Patient Clinical Status Yes No Known Drug Allergies [id number] Drug Allergy Unknown N/A 05/07/2019 Medications There is no data. 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, UNSPE 04/11/1613 AMBER ESCALANTE Ot I10 ESSENTIAL (PRIMARY) HYPERTENSION 04/11/1613 AMBER ESCALANTE Ot I89.0 LYMPHEDEMA, NOT ELSEWHERE CLASSIFIED 04/11/1613 AMBER ESCALANTE Ot K21.9 GASTRO-ESOPHAGEAL REFLUX DISEASE WITHOUT 04/11/1613 AMBER ESCALANTE Ot Z51.11 ENCOUNTER FOR ANTINEOPLASTIC CHEMOTHERAP 04/11/1613 AMBER ESCALANTE Ot Z79.899 OTHER RELEASE AND TECHNICAL RECORDS CLERK (CURRENT) DRUG THERAPY 10/26/2013 STEPHANIE KATHLEEN, JULIO Rosa Ot 785.6 ENLARGEMENT LYMPH NODES 10/26/2013 STEPHANIE KATHLEEN, JULIO Rosa Ot V74.8 SCREEN-BACTERIAL DIS NEC 11/23/2013 STEPHANIE KATHLEEN, JULIO Rosa Ot 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 SOLID ORGAN U 11/23/2013 STEPHANIE KATHLEEN, JULIO Rosa Ot 401.9 HYPERTENSION NOS 11/23/2013 STEPHANIE KATHLEEN, JULIO Rosa Ot V58.69 OTH MED,LT,CURRENT USE 11/23/2013 STEPHANIE KATHLEEN, JULIO Rosa Ot V74.8 SCREEN-BACTERIAL DIS NEC 02/02/2014 AMBER ESCALANTE Ot 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 SOLID ORGAN U 02/02/2014 AMBER ESCALANTE Ot 272.0 PURE HYPERCHOLESTEROLEM 02/02/2014 AMBER ESCALANTE Ot 401.9 HYPERTENSION NOS 02/02/2014 AMBER ESCALANTE Ot 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69 05/09/2014 AVA BOBAN N Ot 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 SOLID ORGAN U 05/09/2014 AVA BOBAN N Ot 272.0 PURE HYPERCHOLESTEROLEM 05/09/2014 AVA BOBAN N Ot 401.9 HYPERTENSION NOS 05/09/2014 AVA BOBAN N Ot 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 05/09/2014 AVA, BOBAN N Ot 530.81 ESOPHAGEAL REFLUX 05/09/2014 AVA, BOBAN N Ot 785.6 ENLARGEMENT LYMPH NODES 05/09/2014 AVA BOBAN N Ot 792.1 ABN FIND-STOOL CONTENTS 05/09/2014 AVA BOBAN N Ot V58.11 ENCOUNTER FOR ANTINEOPLASTIC CHEMOTHERAP 05/09/2014 AVA BOBAN N Ot V58.69 OTH MED,LT,CURRENT USE 05/10/2014 AVA, BOBAN N Ot 202.80 05/10/2014 AVA, BOBAN N Ot 272.0 05/10/2014 AVA, BOBAN N Ot 401.9 05/10/2014 AVA, BOBAN N Ot 457.1 05/10/2014 AVA, BOBAN N Ot 530.81 05/10/2014 AVA BOBAN N Ot 785.6 05/10/2014 AVA, BOBAN N Ot 792.1 05/10/2014 AVA, BOBAN N Ot V58.11 05/10/2014 AVA, BOBAN N Ot V58.69 05/10/2014 AVA, BOBAN N Ot 202.80 05/10/2014 AVA, BOBAN N Ot 272.0 05/10/2014 AVA, BOBAN N Ot 401.9 05/10/2014 AVA, BOBAN N Ot 457.1 05/10/2014 AVA, BOBAN N Ot 530.81 05/10/2014 AVA, BOBAN N Ot 785.6 05/10/2014 AVA, BOBAN N Ot 792.1 05/10/2014 AVA, BOBAN N Ot V58.11 05/10/2014 AVA, BOBAN N Ot V58.69 05/10/2014 AVA, BOBAN N Ot 202.80 05/10/2014 AVA, BOBAN N Ot 272.0 05/10/2014 AVA, BOBAN N Ot 401.9 05/10/2014 AVA, BOBAN N Ot 457.1 05/10/2014 AVA, BOBAN N Ot 530.81 05/10/2014 AVA, BOBAN N Ot 785.6 05/10/2014 AVA, BOBAN N Ot 792.1 05/10/2014 AVA, BOBAN N Ot V58.11 05/10/2014 AVA, BOBAN N Ot V58.69 05/11/2014 AVA, BOBAN N Ot 202.80 05/11/2014 AVA, BOBAN N Ot 272.0 05/11/2014 AVA, BOBAN N Ot 401.9 05/11/2014 AVA, BOBAN N Ot 457.1 05/11/2014 AVA, BOBAN N Ot 530.81 05/11/2014 AVA, BOBAN N Ot 785.6 05/11/2014 AVA, BOBAN N Ot 792.1 05/11/2014 AVA, BOBAN N Ot V58.11 05/11/2014 AVA, BOBAN N Ot V58.69 05/12/2014 NICOLE FRANCIS MANAGER STRATEGIC Ot 202.80 05/12/2014 NICOLE FRANCIS MANAGER STRATEGIC Ot 272.0 05/12/2014 NICOLE FRANCIS MANAGER STRATEGIC Ot 401.9 05/12/2014 FRANCISNICOLE Matthew S MANAGER STRATEGIC Ot 530.81 05/12/2014 FRANCISNICOLE Matthew S MANAGER STRATEGIC Ot V58.69 05/19/2014 FRANCIS, NICOLE S MANAGER STRATEGIC Ot 202.80 05/19/2014 FRANCIS, NICOLE S MANAGER STRATEGIC Ot 272.0 05/19/2014 FRANCIS, NICOLE S MANAGER STRATEGIC Ot 401.9 05/19/2014 FRANCIS, NICOLE S MANAGER STRATEGIC Ot 530.81 05/19/2014 FRANCIS, NICOLE S MANAGER STRATEGIC Ot V58.69 06/10/2014 FRANCIS, NICOLE S MANAGER STRATEGIC Ot 202.80 06/10/2014 FRANCIS, NICOLE S MANAGER STRATEGIC Ot V58.69 06/11/2014 FRANCIS, NICOLE S MANAGER STRATEGIC Ot 202.80 06/11/2014 FRANCISNICOLE S MANAGER STRATEGIC Ot V58.69 06/16/2014 AVA, BOBAN N Ot 202.80 06/16/2014 AVA, BOBAN N Ot 272.0 06/16/2014 AVA, BOBAN N Ot 401.9 06/16/2014 AVA, BOBAN N Ot 457.1 06/16/2014 AVA, BOBAN N Ot 530.81 06/16/2014 AVA, BOBAN N Ot 785.6 06/16/2014 AVA, BOBAN N Ot 792.1 06/16/2014 AVA, BOBAN N Ot V58.11 06/16/2014 AVA, BOBAN N Ot V58.69 07/05/2014 AVA, BOBAN N Ot 202.80 07/05/2014 AVA, BOBAN N Ot 272.0 07/05/2014 AVA, BOBAN N Ot 401.9 07/05/2014 AVA, BOBAN N Ot 457.1 07/05/2014 AVA, BOBAN N Ot 530.81 07/05/2014 AVA, BOBAN N Ot 785.6 07/05/2014 AVA, BOBAN N Ot 792.1 07/05/2014 AVA, BOBAN N Ot V58.11 07/05/2014 AVA, BOBAN N Ot V58.69 07/07/2014 AVA, BOBAN N Ot 202.80 07/07/2014 AVA, BOBAN N Ot V58.81 07/08/2014 AVA, BOBAN N Ot 202.80 07/08/2014 AVA, BOBAN N Ot V58.81 08/08/2014 AVA, BOBAN N Ot 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 SOLID ORGAN U 08/08/2014 AVA, BOBAN N Ot 272.0 PURE HYPERCHOLESTEROLEM 08/08/2014 AVA, BOBAN N Ot 401.9 HYPERTENSION NOS 08/08/2014 AVA, BOBAN N Ot 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 08/08/2014 AVA, BOBAN N Ot 530.81 ESOPHAGEAL REFLUX 08/08/2014 AVA, BOBAN N Ot 785.6 ENLARGEMENT LYMPH NODES 08/08/2014 AVA, BOBAN N Ot 792.1 ABN FIND-STOOL CONTENTS 08/08/2014 AVA, BOBAN N Ot V58.11 ENCOUNTER FOR ANTINEOPLASTIC CHEMOTHERAP 08/08/2014 JACLYN ESCALANTEAN N Ot V58.69 OTH MED,LT,CURRENT USE 08/30/2014 AVA, BOBAN N Ot 202.80 08/30/2014 AVA, BOBAN N Ot 272.0 08/30/2014 AVA, BOBAN N Ot 401.9 08/30/2014 AVA, BOBAN N Ot 457.1 08/30/2014 AVA, BOBAN N Ot 530.81 08/30/2014 AVA, BOBAN N Ot 785.6 08/30/2014 AVA, BOBAN N Ot 792.1 08/30/2014 AVA, BOBAN N Ot V58.11 08/30/2014 AVA, BOBAN N Ot V58.69 08/30/2014 AVA, BOBAN N Ot 202.80 08/30/2014 AVA, BOBAN N Ot 272.0 08/30/2014 AVA, BOBAN N Ot 401.9 08/30/2014 AVA, BOBAN N Ot 457.1 08/30/2014 AVA, BOBAN N Ot 530.81 08/30/2014 AVA, BOBAN N Ot 785.6 08/30/2014 AVA, BOBAN N Ot 792.1 08/30/2014 AAV, BOBAN N Ot V58.11 08/30/2014 AVA, BOBAN N Ot V58.69 09/06/2014 AVA, BOBAN N Ot 202.80 09/06/2014 AVA, BOBAN N Ot 272.0 09/06/2014 AVA, BOBAN N Ot 401.9 09/06/2014 AVA, BOBAN N Ot 457.1 09/06/2014 AVA, BOBAN N Ot 530.81 09/06/2014 AVA, BOBAN N Ot 785.6 09/06/2014 AVA, BOBAN N Ot 792.1 09/06/2014 AVA, BOBAN N Ot V58.11 09/06/2014 AVA, BOBAN N Ot V58.69 09/07/2014 AVA, BOBAN N Ot 202.80 09/07/2014 AVA, BOBAN N Ot 272.0 09/07/2014 AVA, BOBAN N Ot 401.9 09/07/2014 AVA, BOBAN N Ot 457.1 09/07/2014 AVA, BOBAN N Ot 530.81 09/07/2014 AVA, BOBAN N Ot 785.6 09/07/2014 AVA, BOBAN N Ot 792.1 09/07/2014 AVA, BOBAN N Ot V58.11 09/07/2014 AVA, BOBAN N Ot V58.69 09/08/2014 AVA, BOBAN N Ot 202.80 09/08/2014 AVA, BOBAN N Ot V58.81 09/09/2014 AVA, BOBAN N Ot 202.80 09/09/2014 AVA, BOBAN N Ot V58.81 09/12/2014 AVA, BOBAN N Ot 202.80 09/12/2014 AVA, BOBAN N Ot 272.0 09/12/2014 AVA, BOBAN N Ot 401.9 09/12/2014 AVA, BOBAN N Ot 457.1 09/12/2014 AVA, BOBAN N Ot 530.81 09/12/2014 AVA, BOBAN N Ot 785.6 09/12/2014 AVA, BOBAN N Ot 792.1 09/12/2014 AVA, BOBAN N Ot V58.11 09/12/2014 AVA, BOBAN N Ot V58.69 10/01/2014 AVA, BOBAN N Ot 202.80 10/01/2014 AVA, BOBAN N Ot V58.81 10/11/2014 AVA, BOBAN N Ot 202.80 10/11/2014 AVA, BOBAN N Ot 272.0 10/11/2014 AVA, BOBAN N Ot 401.9 10/11/2014 AVA, BOBAN N Ot 457.1 10/11/2014 AVA, BOBAN N Ot 530.81 10/11/2014 AVA, BOBAN N Ot 785.6 10/11/2014 AVA, BOBAN N Ot 792.1 10/11/2014 AVA, BOBAN N Ot V58.11 10/11/2014 AVA, BOBAN N Ot V58.69 10/25/2014 AVA, BOBAN N Ot 202.80 10/25/2014 AVA, BOBAN N Ot 272.0 10/25/2014 AVA, BOBAN N Ot 401.9 10/25/2014 AVA, BOBAN N Ot 457.1 10/25/2014 AVA, BOBAN N Ot 530.81 10/25/2014 AVA, BOBAN N Ot 785.6 10/25/2014 AVA, BOBAN N Ot 792.1 10/25/2014 AVA, BOBAN N Ot V58.11 10/25/2014 AVA, BOBAN N Ot V58.69 2014 AVA, BOBAN N Ot 202.80 2014 AVA, BOBAN N Ot 272.0 2014 AVA, BOBAN N Ot 401.9 2014 AVA, BOBAN N Ot 457.1 2014 AVA, BOBAN N Ot 530.81 2014 AVA, BOBAN N Ot 785.6 2014 AVA, BOBAN N Ot 792.1 2014 AVA, BOBAN N Ot V58.11 2014 AVA, BOBAN N Ot V58.69 11/25/2014 NICOLE FRANCIS S MANAGER STRATEGIC Ot 202.80 11/25/2014 NICOLE FRANCIS MANAGER STRATEGIC Ot 272.0 11/25/2014 NICOLE FRANCIS S MANAGER STRATEGIC Ot 401.9 11/25/2014 NICOLE FRANCIS S MANAGER STRATEGIC Ot 457.1 11/25/2014 NICOLE FRANCIS MANAGER STRATEGIC Ot 530.81 11/25/2014 NICOLE FRANCIS MANAGER STRATEGIC Ot 785.6 11/25/2014 NICOLE FRANCIS MANAGER STRATEGIC Ot 792.1 11/25/2014 NICOLE FRANCIS MANAGER STRATEGIC Ot V58.69 12/05/2014 AMBER ESCALANTE N Ot 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 SOLID ORGAN U 12/05/2014 AMBER ESCALANTE N Ot 272.0 PURE HYPERCHOLESTEROLEM 12/05/2014 AMBER ESCALANTE N Ot 401.9 HYPERTENSION NOS 12/05/2014 AMBER ESCALANTE N Ot 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 12/05/2014 AMBER ESCALANTE N Ot 530.81 ESOPHAGEAL REFLUX 12/05/2014 AMBER ESCALANTE N Ot 785.6 ENLARGEMENT LYMPH NODES 12/05/2014 AMBER ESCALANTE N Ot 792.1 ABN FIND-STOOL CONTENTS 12/05/2014 AMBER ESCALANTE N Ot V58.11 ENCOUNTER FOR ANTINEOPLASTIC CHEMOTHERAP 12/05/2014 AMBER ESCALANTE N Ot V58.69 OTH MED,LT,CURRENT USE 12/05/2014 AMBER ESCALANTE N Ot V58.81 FIT/ADJ VASCULAR CATHETER 12/09/2014 NICOLE FRANCIS MANAGER STRATEGIC Ot 202.80 12/09/2014 NICOLE FRANCIS MANAGER STRATEGIC Ot 272.0 12/09/2014 NICOLE FRANCIS MANAGER STRATEGIC Ot 401.9 12/09/2014 NICOLE FRANCIS MANAGER STRATEGIC Ot 457.1 12/09/2014 NICOLE FRANCIS MANAGER STRATEGIC Ot 530.81 12/09/2014 NICOLE FRANCIS MANAGER STRATEGIC Ot 785.6 12/09/2014 NICOLE FRANCIS MANAGER STRATEGIC Ot 792.1 12/09/2014 NICOLE FRANCIS MANAGER STRATEGIC Ot V58.69 12/20/2014 AMBER ESCALANTE N Ot 202.80 12/20/2014 AMBER ESCALANTE N Ot 272.0 12/20/2014 AMBER ESCALANTE N Ot 401.9 12/20/2014 AMBER ESCALANTE N Ot 457.1 12/20/2014 AMBER ESCALANTE N Ot 530.81 12/20/2014 AMBER ESCALANTE N Ot 785.6 12/20/2014 AVA, BOBAN N Ot 792.1 12/20/2014 AVA, BOBAN N Ot V58.11 12/20/2014 AVA, BOBAN N Ot V58.69 12/28/2014 AVA, BOBAN N Ot 202.80 12/28/2014 AVA, BOBAN N Ot 272.0 12/28/2014 AVA, BOBAN N Ot 401.9 12/28/2014 AVA, BOBAN N Ot 457.1 12/28/2014 AVA, BOBAN N Ot 530.81 12/28/2014 AVA, BOBAN N Ot 785.6 12/28/2014 AVA, BOBAN N Ot 792.1 12/28/2014 AVA, BOBAN N Ot V58.11 12/28/2014 AVA, BOBAN N Ot V58.69 02/02/2015 AVA, BOBAN N Ot 202.80 02/02/2015 AVA, BOBAN N Ot 272.0 02/02/2015 AVA, BOBAN N Ot 401.9 02/02/2015 AVA, BOBAN N Ot 457.1 02/02/2015 AVA, BOBAN N Ot 530.81 02/02/2015 AVA, BOBAN N Ot 785.6 02/02/2015 AVA, BOBAN N Ot 792.1 02/02/2015 AVA, BOBAN N Ot V58.11 02/02/2015 AVA, BOBAN N Ot V58.69 02/09/2015 AVA, BOBAN N Ot 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 SOLID ORGAN U 02/09/2015 AVA, BOBAN N Ot 272.0 PURE HYPERCHOLESTEROLEM 02/09/2015 AVA, BOBAN N Ot 401.9 HYPERTENSION NOS 02/09/2015 AVA, BOBAN N Ot 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 02/09/2015 AVA, BOBAN N Ot 530.81 ESOPHAGEAL REFLUX 02/09/2015 AVA, BOBAN N Ot 785.6 ENLARGEMENT LYMPH NODES 02/09/2015 AVA, BOBAN N Ot 792.1 ABN FIND-STOOL CONTENTS 02/09/2015 AVA BOBAN N Ot V58.11 ENCOUNTER FOR ANTINEOPLASTIC CHEMOTHERAP 02/09/2015 AVA BOBAN N Ot V58.69 OTH MED,LT,CURRENT USE 02/09/2015 AVA, BOBAN N Ot V58.81 FIT/ADJ VASCULAR CATHETER 02/21/2015 AVA, BOBAN N Ot 202.80 02/21/2015 AVA, BOBAN N Ot 272.0 02/21/2015 AVA, BOBAN N Ot 401.9 02/21/2015 AVA, BOBAN N Ot 457.1 02/21/2015 AVA, BOBAN N Ot 530.81 02/21/2015 AVA, BOBAN N Ot 785.6 02/21/2015 AVA, BOBAN N Ot 792.1 02/21/2015 AVA, BOBAN N Ot V58.11 02/21/2015 AVA, BOBAN N Ot V58.69 03/14/2015 AVA, BOBAN N Ot 202.80 03/14/2015 AVA, BOBAN N Ot 272.0 03/14/2015 AVA, BOBAN N Ot 401.9 03/14/2015 AVA, BOBAN N Ot 457.1 03/14/2015 AVA, BOBAN N Ot 530.81 03/14/2015 AVA, BOBAN N Ot 785.6 03/14/2015 AVA, BOBAN N Ot 792.1 03/14/2015 AVA, BOBAN N Ot V58.69 03/15/2015 NICOLE FRANCIS MANAGER STRATEGIC Ot C85.80 03/15/2015 NICOLE FRANCIS MANAGER STRATEGIC Ot E78.0 03/15/2015 NICOLE FRANCIS MANAGER STRATEGIC Ot I 10 03/15/2015 NICOLE FRANCIS MANAGER STRATEGIC Ot I89.0 03/15/2015 NICOLE FRANCIS MANAGER STRATEGIC Ot K21.9 03/15/2015 NICOLE FRANCIS MANAGER STRATEGIC Ot Z79.899 03/18/2015 AVA, BOBAN N Ot 202.80 03/18/2015 AVA, BOBAN N Ot 272.0 03/18/2015 AVA, BOBAN N Ot 401.9 03/18/2015 AVA, BOBAN N Ot 457.1 03/18/2015 AVA, BOBAN N Ot 530.81 03/18/2015 AVA, BOBAN N Ot 785.6 03/18/2015 AVA, BOBAN N Ot 792.1 03/18/2015 AVA, BOBAN N Ot V58.69 03/22/2015 FRANCISNICOLE MANAGER STRATEGIC Ot C85.80 03/22/2015 NICOLE FRANCIS MANAGER STRATEGIC Ot E78.0 03/22/2015 NICOLE FRANCIS MANAGER STRATEGIC Ot I 10 03/22/2015 FRANCISNICOLE Matthew MANAGER STRATEGIC Ot I89.0 03/22/2015 FRANCISNICOLE Matthew MANAGER STRATEGIC Ot K21.9 03/22/2015 FRANCISNICOLE Matthew MANAGER STRATEGIC Ot Z79.899 04/13/2015 AVA, BOBAN N Ot C85.80 04/13/2015 AVA, BOBAN N Ot Z45.2 04/15/2015 AVA, BOBAN N Ot 202.80 04/15/2015 AVA, BOBAN N Ot 272.0 04/15/2015 AVA, BOBAN N Ot 401.9 04/15/2015 AVA, BOBAN N Ot 457.1 04/15/2015 AVA, BOBAN N Ot 530.81 04/15/2015 AVA, BOBAN N Ot 785.6 04/15/2015 AVA, BOBAN N Ot 792.1 04/15/2015 AVA, BOBAN N Ot V58.11 04/15/2015 AVA, BOBAN N Ot V58.69 04/21/2015 AVA, BOBAN N Ot C85.80 04/21/2015 AVA, BOBAN N Ot Z45.2 05/18/2015 AVA, BOBAN N Ot C85.80 05/18/2015 AVA, BOBAN N Ot E78.0 05/18/2015 AVA, BOBAN N Ot I10 05/18/2015 AVA, BOBAN N Ot I89.0 05/18/2015 AVA, BOBAN N Ot K21.9 05/18/2015 AVA, BOBAN N Ot Z45.2 05/18/2015 AVA, BOBAN N Ot Z79.899 05/22/2015 AVA, BOBAN N Ot 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, UNSPE 05/22/2015 AVA, BOBAN N Ot E78.0 PURE HYPERCHOLESTEROLEMIA 05/22/2015 AVA, BOBAN N Ot I10 ESSENTIAL (PRIMARY) HYPERTENSION 05/22/2015 AVA, BOBAN N Ot I89.0 LYMPHEDEMA, NOT ELSEWHERE CLASSIFIED 05/22/2015 AVA, BOBAN N Ot K21.9 GASTRO-ESOPHAGEAL REFLUX DISEASE WITHOUT 05/22/2015 AVA, BOBAN N Ot Z45.2 05/22/2015 AVA, BOBAN N Ot Z51.11 ENCOUNTER FOR ANTINEOPLASTIC CHEMOTHERAP 05/22/2015 AVA, BOBAN N Ot Z79.899 OTHER HALF-WAY (CURRENT) DRUG THERAPY 06/03/2015 AVA, BOBAN N Ot C85.80 06/03/2015 AVA, BOBAN N Ot Z45.2 06/10/2015 AVA, BOBAN N Ot C85.80 06/10/2015 AVA, BOBAN N Ot Z45.2 06/24/2015 AVA, BOBAN N Ot C85.80 06/24/2015 AVA, BOBAN N Ot E78.0 06/24/2015 AVA, BOBAN N Ot I10 06/24/2015 AVA, BOBAN N Ot I89.0 06/24/2015 AVA, BOBAN N Ot K21.9 06/24/2015 AVA, BOBAN N Ot Z45.2 06/24/2015 AVA, BOBAN N Ot Z79.899 08/15/2015 AVA, BOBAN N Ot C85.80 08/15/2015 AVA, BOBAN N Ot E78.0 08/15/2015 AVA, BOBAN N Ot I10 08/15/2015 AVA, BOBAN N Ot I89.0 08/15/2015 AVA, BOBAN N Ot K21.9 08/15/2015 AVA, BOBAN N Ot Z45.2 08/15/2015 AVA, BOBAN N Ot Z79.899 08/16/2015 AVA, BOBAN N Ot C85.80 08/16/2015 AVA, BOBAN N Ot E78.0 08/16/2015 AVA, BOBAN N Ot I10 08/16/2015 AVA, BOBAN N Ot I89.0 08/16/2015 AVA, BOBAN N Ot K21.9 08/16/2015 AVA, BOBAN N Ot Z45.2 08/16/2015 AVA, BOBAN N Ot Z79.899 08/17/2015 AVA, BOBAN N Ot C85.80 08/17/2015 AVA, BOBAN N Ot E78.0 08/17/2015 AVA, BOBAN N Ot I10 08/17/2015 AVA, BOBAN N Ot I89.0 08/17/2015 AVA, BOBAN N Ot K21.9 08/17/2015 AVA, BOBAN N Ot Z45.2 08/17/2015 AVA, BOBAN N Ot Z79.899 08/19/2015 AVA, BOBAN N Ot C85.80 08/19/2015 AVA, BOBAN N Ot E78.0 08/19/2015 AVA, BOBAN N Ot I10 08/19/2015 AVA, BOBAN N Ot I89.0 08/19/2015 AVA, BOBAN N Ot K21.9 08/19/2015 AVA, BOBAN N Ot Z45.2 08/19/2015 AVA, BOBAN N Ot Z79.899 08/24/2015 AVA, BOBAN N Ot C85.80 08/24/2015 AVA, BOBAN N Ot E78.0 08/24/2015 AVA, BOBAN N Ot I10 08/24/2015 AVA, BOBAN N Ot I89.0 08/24/2015 AVA, BOBAN N Ot K21.9 08/24/2015 AVA, BOBAN N Ot Z45.2 08/24/2015 AVA, BOBAN N Ot Z79.899 09/07/2015 AVA, BOBAN N Ot 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, UNSPE 09/07/2015 AVA, BOBAN N Ot E78.0 PURE HYPERCHOLESTEROLEMIA 09/07/2015 AVA, BOBAN N Ot I10 ESSENTIAL (PRIMARY) HYPERTENSION 09/07/2015 AVA, BOBAN N Ot I89.0 LYMPHEDEMA, NOT ELSEWHERE CLASSIFIED 09/07/2015 AVA, BOBAN N Ot K21.9 GASTRO-ESOPHAGEAL REFLUX DISEASE WITHOUT 09/07/2015 AVA, BOBAN N Ot Z79.899 OTHER HALF-WAY (CURRENT) DRUG THERAPY 09/11/2015 AVA, BOBAN N Ot 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, UNSPE 09/11/2015 AVA BOBPOPPY N Ot E78.0 PURE HYPERCHOLESTEROLEMIA 09/11/2015 AVA, BOBAN N Ot I10 ESSENTIAL (PRIMARY) HYPERTENSION 09/11/2015 AVA, BOBAN N Ot I89.0 LYMPHEDEMA, NOT ELSEWHERE CLASSIFIED 09/11/2015 AVA BOBAN N Ot K21.9 GASTRO-ESOPHAGEAL REFLUX DISEASE WITHOUT 09/11/2015 AVA, BOBAN N Ot Z45.2 ENCOUNTER FOR ADJUSTMENT AND MANAGEMENT 09/11/2015 AVA BOBAN N Ot Z51.11 ENCOUNTER FOR ANTINEOPLASTIC CHEMOTHERAP 09/11/2015 AVA, BOBAN N Ot Z79.899 OTHER RELEASE AND TECHNICAL RECORDS CLERK (CURRENT) DRUG THERAPY 09/13/2015 AVA, BOBAN N Ot 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, UNSPE 09/13/2015 AVA BOBAN N Ot E78.0 PURE HYPERCHOLESTEROLEMIA 09/13/2015 AVA, BOBAN N Ot I10 ESSENTIAL (PRIMARY) HYPERTENSION 09/13/2015 AVA, BOBAN N Ot I89.0 LYMPHEDEMA, NOT ELSEWHERE CLASSIFIED 09/13/2015 AVA, BOBAN N Ot K21.9 GASTRO-ESOPHAGEAL REFLUX DISEASE WITHOUT 09/13/2015 AVA, BOBAN N Ot Z51.11 ENCOUNTER FOR ANTINEOPLASTIC CHEMOTHERAP 09/13/2015 AVA, BOBAN N Ot Z79.899 OTHER HALF-WAY (CURRENT) DRUG THERAPY 10/03/2015 AVA BOBAN N Ot 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, UNSPE 10/03/2015 AVA BOBAN N Ot E78.0 PURE HYPERCHOLESTEROLEMIA 10/03/2015 AVA, BOBAN N Ot I10 ESSENTIAL (PRIMARY) HYPERTENSION 10/03/2015 AVA, BOBAN N Ot I89.0 LYMPHEDEMA, NOT ELSEWHERE CLASSIFIED 10/03/2015 AVA, BOBAN N Ot K21.9 GASTRO-ESOPHAGEAL REFLUX DISEASE WITHOUT 10/03/2015 AVA, BOBAN N Ot Z45.2 ENCOUNTER FOR ADJUSTMENT AND MANAGEMENT 10/03/2015 AVA, BOBAN N Ot Z79.899 OTHER HALF-WAY (CURRENT) DRUG THERAPY 10/04/2015 NICOLE FRANCISP Ot 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, UNSPE 10/04/2015 NICOLE FRANCIS MANAGER STRATEGIC Ot E78.0 PURE HYPERCHOLESTEROLEMIA 10/04/2015 FRANCISNICOLE Matthew MANAGER STRATEGIC Ot I 10 ESSENTIAL (PRIMARY) HYPERTENSION 10/04/2015 NICOLE FRANCIS MANAGER STRATEGIC Ot I89.0 LYMPHEDEMA, NOT ELSEWHERE CLASSIFIED 10/04/2015 FRANCISNICOLE Matthew MANAGER STRATEGIC Ot K21.9 GASTRO-ESOPHAGEAL REFLUX DISEASE WITHOUT 10/04/2015 FRANCISNICOLE Matthew MANAGER STRATEGIC Ot Z45.2 ENCOUNTER FOR ADJUSTMENT AND MANAGEMENT 10/04/2015 FRANCISNICOLE Matthew MANAGER STRATEGIC Ot Z79.899 OTHER HALF-WAY (CURRENT) DRUG THERAPY 10/21/2015 AVA, BOBAN N Ot 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, UNSPE 10/21/2015 AVA, BOBAN N Ot E78.0 PURE HYPERCHOLESTEROLEMIA 10/21/2015 AVA BOBAN N Ot I10 ESSENTIAL (PRIMARY) HYPERTENSION 10/21/2015 AVA, BOBAN N Ot I89.0 LYMPHEDEMA, NOT ELSEWHERE CLASSIFIED 10/21/2015 AVAJACLYN IBRAHIMAN N Ot K21.9 GASTRO-ESOPHAGEAL REFLUX DISEASE WITHOUT 10/21/2015 AVA BOBAN N Ot Z79.899 OTHER RELEASE AND TECHNICAL RECORDS CLERK (CURRENT) DRUG THERAPY 10/25/2015 AVA, BOBAN N Ot 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, UNSPE 10/25/2015 AVA BOBAN N Ot E78.0 PURE HYPERCHOLESTEROLEMIA 10/25/2015 AVA BOBAN N Ot I10 ESSENTIAL (PRIMARY) HYPERTENSION 10/25/2015 AVAJACLYN IBRAHIMAN N Ot I89.0 LYMPHEDEMA, NOT ELSEWHERE CLASSIFIED 10/25/2015 AVAJACLYN IBRAHIMAN N Ot K21.9 GASTRO-ESOPHAGEAL REFLUX DISEASE WITHOUT 10/25/2015 AVA BOBAN N Ot Z79.899 OTHER RELEASE AND TECHNICAL RECORDS CLERK (CURRENT) DRUG THERAPY 10/31/2015 FRANCISNICOLE Matthew MANAGER STRATEGIC Ot 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, UNSPE 10/31/2015 FRANCISNICOLE Matthew MANAGER STRATEGIC Ot E78.0 PURE HYPERCHOLESTEROLEMIA 10/31/2015 FRANCISNICOLE Matthew MANAGER STRATEGIC Ot I 10 ESSENTIAL (PRIMARY) HYPERTENSION 10/31/2015 FRANCISNICOLE Matthew MANAGER STRATEGIC Ot I89.0 LYMPHEDEMA, NOT ELSEWHERE CLASSIFIED 10/31/2015 FRANCISNICOLE Matthew MANAGER STRATEGIC Ot K21.9 GASTRO-ESOPHAGEAL REFLUX DISEASE WITHOUT 10/31/2015 FRANCISNICOLE Matthew MANAGER STRATEGIC Ot Z45.2 ENCOUNTER FOR ADJUSTMENT AND MANAGEMENT 10/31/2015 KELVIN FRANCISMONTRELL Vipul MANAGER STRATEGIC Ot Z79.899 OTHER RELEASE AND TECHNICAL RECORDS CLERK (CURRENT) DRUG THERAPY 11/03/2015 NICOLE FRANCIS MANAGER STRATEGIC Ot 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, UNSPE 11/03/2015 NICOLE FRANCIS MANAGER STRATEGIC Ot E78.0 PURE HYPERCHOLESTEROLEMIA 11/03/2015 NICOLE FRANCIS MANAGER STRATEGIC Ot I 10 ESSENTIAL (PRIMARY) HYPERTENSION 11/03/2015 KELVIN FRANCISMONTRELL Vipul MANAGER STRATEGIC Ot I89.0 LYMPHEDEMA, NOT ELSEWHERE CLASSIFIED 11/03/2015 NICOLE FRANCIS MANAGER STRATEGIC Ot K21.9 GASTRO-ESOPHAGEAL REFLUX DISEASE WITHOUT 11/03/2015 NICOLE FRANCIS MANAGER STRATEGIC Ot Z45.2 ENCOUNTER FOR ADJUSTMENT AND MANAGEMENT 11/03/2015 NICOLE FRANCIS MANAGER STRATEGIC Ot Z79.899 OTHER RELEASE AND TECHNICAL RECORDS CLERK (CURRENT) DRUG THERAPY 11/21/2015 AVA JACLYNPOPPY N Ot 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, UNSPE 11/21/2015 AVA, JACLYNPOPPY N Ot E78.0 PURE HYPERCHOLESTEROLEMIA 11/21/2015 AVAAMBER N Ot I10 ESSENTIAL (PRIMARY) HYPERTENSION 11/21/2015 AVA, JACLYNAN N Ot I89.0 LYMPHEDEMA, NOT ELSEWHERE CLASSIFIED 11/21/2015 VAA, JACLYNPOPPY N Ot K21.9 GASTRO-ESOPHAGEAL REFLUX DISEASE WITHOUT 11/21/2015 AVAJACLYNAN N Ot Z45.2 ENCOUNTER FOR ADJUSTMENT AND MANAGEMENT 11/21/2015 AVA BOBAN N Ot Z79.899 OTHER RELEASE AND TECHNICAL RECORDS CLERK (CURRENT) DRUG THERAPY 11/29/2015 NICOLE FRANCIS MANAGER STRATEGIC Ot 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, UNSPE 11/29/2015 NICOLE FRANCIS MANAGER STRATEGIC Ot E78.0 PURE HYPERCHOLESTEROLEMIA 11/29/2015 NICOLE FRANCIS MANAGER STRATEGIC Ot I 10 ESSENTIAL (PRIMARY) HYPERTENSION 11/29/2015 NICOLE FRANCIS MANAGER STRATEGIC Ot Z79.899 OTHER HALF-WAY (CURRENT) DRUG THERAPY 11/29/2015 NICOLE FRANCIS MANAGER STRATEGIC Ot 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, UNSPE 11/29/2015 NICOLE FRANCIS MANAGER STRATEGIC Ot E78.0 PURE HYPERCHOLESTEROLEMIA 11/29/2015 NICOLE FRANCIS MANAGER STRATEGIC Ot I 10 ESSENTIAL (PRIMARY) HYPERTENSION 11/29/2015 NICOLE FRANCIS MANAGER STRATEGIC Ot Z79.899 OTHER HALF-WAY (CURRENT) DRUG THERAPY 12/01/2015 AMBER ESCALANTE N Ot 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, UNSPE 12/01/2015 AMBER ESCALANTE N Ot Z45.2 ENCOUNTER FOR ADJUSTMENT AND MANAGEMENT 12/06/2015 AVAAMBER N Ot 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, UNSPE 12/06/2015 AMBER ESCALANTE N Ot Z45.2 ENCOUNTER FOR ADJUSTMENT AND MANAGEMENT 12/22/2015 AMBER SECALANTE N Ot 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, UNSPE 12/22/2015 AMBER ESCALANTE N Ot E78.0 PURE HYPERCHOLESTEROLEMIA 12/22/2015 AMBER ESCALANTE N Ot I10 ESSENTIAL (PRIMARY) HYPERTENSION 12/22/2015 AMBER ESCALANTE N Ot Z79.899 OTHER RELEASE AND TECHNICAL RECORDS CLERK (CURRENT) DRUG THERAPY 12/23/2015 NICOLE FRANCIS MANAGER STRATEGIC Ot 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, UNSPE 12/23/2015 NICOLE FRANCIS MANAGER STRATEGIC Ot E78.0 PURE HYPERCHOLESTEROLEMIA 12/23/2015 NICOLE FRANCIS MANAGER STRATEGIC Ot I 10 ESSENTIAL (PRIMARY) HYPERTENSION 12/23/2015 NICOLE FRANCIS MANAGER STRATEGIC Ot Z79.899 OTHER RELEASE AND TECHNICAL RECORDS CLERK (CURRENT) DRUG THERAPY 12/27/2015 AMBER ESCALANTE N Ot 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, UNSPE 12/27/2015 AMBER ESCALANTE N Ot E78.0 PURE HYPERCHOLESTEROLEMIA 12/27/2015 AMBER ESCALANTE N Ot I10 ESSENTIAL (PRIMARY) HYPERTENSION 12/27/2015 AMBER ESCALANTE N Ot I89.0 LYMPHEDEMA, NOT ELSEWHERE CLASSIFIED 12/27/2015 AMBER ESCALANTE Ot K21.9 GASTRO-ESOPHAGEAL REFLUX DISEASE WITHOUT 12/27/2015 AMBER ESCALANTE Ot Z51.11 ENCOUNTER FOR ANTINEOPLASTIC CHEMOTHERAP 12/27/2015 AVA, BOBAN N Ot Z79.899 OTHER RELEASE AND TECHNICAL RECORDS CLERK (CURRENT) DRUG THERAPY 12/29/2015 NICOLE FRANCIS MANAGER STRATEGIC Ot 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, UNSPE 12/29/2015 NICOLE FRANCIS MANAGER STRATEGIC Ot E78.0 PURE HYPERCHOLESTEROLEMIA 12/29/2015 NICOLE FRANCIS MANAGER STRATEGIC Ot I 10 ESSENTIAL (PRIMARY) HYPERTENSION 12/29/2015 NICOLE FRANCIS MANAGER STRATEGIC Ot Z79.899 OTHER RELEASE AND TECHNICAL RECORDS CLERK (CURRENT) DRUG THERAPY 01/01/2016 AVA BOBAN N Ot 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, UNSPE 01/01/2016 AVA, BOBAN N Ot E78.0 PURE HYPERCHOLESTEROLEMIA 01/01/2016 AVA, BOBAN N Ot I10 ESSENTIAL (PRIMARY) HYPERTENSION 01/01/2016 AVA, BOBAN N Ot I89.0 LYMPHEDEMA, NOT ELSEWHERE CLASSIFIED 01/01/2016 AVA BOBAN N Ot K21.9 GASTRO-ESOPHAGEAL REFLUX DISEASE WITHOUT 01/01/2016 AVA, BOBAN N Ot Z51.11 ENCOUNTER FOR ANTINEOPLASTIC CHEMOTHERAP 01/01/2016 AVA, BOBAN N Ot Z79.899 OTHER HALF-WAY (CURRENT) DRUG THERAPY 01/10/2016 AVA, BOBAN N Ot 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, UNSPE 01/10/2016 AVA, BOBAN N Ot E78.0 PURE HYPERCHOLESTEROLEMIA 01/10/2016 AVA, BOBAN N Ot I10 ESSENTIAL (PRIMARY) HYPERTENSION 01/10/2016 AVA, BOBAN N Ot Z79.899 OTHER RELEASE AND TECHNICAL RECORDS CLERK (CURRENT) DRUG THERAPY 01/17/2016 AVA, BOBAN N Ot 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, UNSPE 01/17/2016 AVA, BOBAN N Ot E78.0 PURE HYPERCHOLESTEROLEMIA 01/17/2016 AVA, BOBAN N Ot I10 ESSENTIAL (PRIMARY) HYPERTENSION 01/17/2016 AVA, BOBAN N Ot I89.0 LYMPHEDEMA, NOT ELSEWHERE CLASSIFIED 01/17/2016 AVA, BOBAN N Ot K21.9 GASTRO-ESOPHAGEAL REFLUX DISEASE WITHOUT 01/17/2016 AVA, BOBAN N Ot Z51.11 ENCOUNTER FOR ANTINEOPLASTIC CHEMOTHERAP 01/17/2016 AVA, BOBAN N Ot Z79.899 OTHER HALF-WAY (CURRENT) DRUG THERAPY 01/29/2016 AVA BOBAN N Ot 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, UNSPE 01/29/2016 AAV BOBAN N Ot E78.0 PURE HYPERCHOLESTEROLEMIA 01/29/2016 AVA, BOBAN N Ot I10 ESSENTIAL (PRIMARY) HYPERTENSION 01/29/2016 AVA, BOBAN N Ot I89.0 LYMPHEDEMA, NOT ELSEWHERE CLASSIFIED 01/29/2016 AVA BOBAN N Ot K21.9 GASTRO-ESOPHAGEAL REFLUX DISEASE WITHOUT 01/29/2016 AAV, BOBAN N Ot Z51.11 ENCOUNTER FOR ANTINEOPLASTIC CHEMOTHERAP 01/29/2016 AVA, BOBAN N Ot Z79.899 OTHER HALF-WAY (CURRENT) DRUG THERAPY 02/20/2016 AVA BOBAN N Ot 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, UNSPE 03/08/2016 VAA, BOBAN N Ot E78.0 PURE HYPERCHOLESTEROLEMIA 03/08/2016 AVA, BOBAN N Ot I10 ESSENTIAL (PRIMARY) HYPERTENSION 03/08/2016 AVA, BOBAN N Ot I89.0 LYMPHEDEMA, NOT ELSEWHERE CLASSIFIED 03/08/2016 AVA, BOBAN N Ot K21.9 GASTRO-ESOPHAGEAL REFLUX DISEASE WITHOUT 03/08/2016 AVA, BOBAN N Ot Z51.11 ENCOUNTER FOR ANTINEOPLASTIC CHEMOTHERAP 03/08/2016 AVA AMBER N Ot Z79.899 OTHER RELEASE AND TECHNICAL RECORDS CLERK (CURRENT) DRUG THERAPY 03/15/2016 AVA AMBER N Ot 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, UNSPE 03/15/2016 AVA JACLYNPOPPY N Ot E78.0 PURE HYPERCHOLESTEROLEMIA 03/15/2016 AVA, AMBER N Ot I10 ESSENTIAL (PRIMARY) HYPERTENSION 03/15/2016 AVA AMBER N Ot I89.0 LYMPHEDEMA, NOT ELSEWHERE CLASSIFIED 03/15/2016 AVA AMBER N Ot K21.9 GASTRO-ESOPHAGEAL REFLUX DISEASE WITHOUT 03/15/2016 AVAAMBER N Ot Z51.11 ENCOUNTER FOR ANTINEOPLASTIC CHEMOTHERAP 03/15/2016 AVA AMBER N Ot Z79.899 OTHER RELEASE AND TECHNICAL RECORDS CLERK (CURRENT) DRUG THERAPY 03/20/2016 AVAAMBER N Ot 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, UNSPE 03/20/2016 AVAAMBER N Ot Z45.2 ENCOUNTER FOR ADJUSTMENT AND MANAGEMENT 03/26/2016 AVAAMBER N Ot 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, UNSPE 03/26/2016 AVAAMBER N Ot Z45.2 ENCOUNTER FOR ADJUSTMENT AND MANAGEMENT 05/02/2016 AVAAMBER N Ot 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, UNSPE 05/02/2016 AVAAMBER N Ot Z45.2 ENCOUNTER FOR ADJUSTMENT AND MANAGEMENT 05/10/2016 AVAAMBER N Ot 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, UNSPE 05/10/2016 AVAAMBER N Ot Z45.2 ENCOUNTER FOR ADJUSTMENT AND MANAGEMENT 05/10/2016 AVAAMBER N Ot 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, UNSPE 05/10/2016 AVAAMBER N Ot Z45.2 ENCOUNTER FOR ADJUSTMENT AND MANAGEMENT 05/23/2016 AVAAMBER N Ot 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, UNSPE 05/23/2016 AVAAMBER N Ot Z45.2 ENCOUNTER FOR ADJUSTMENT AND MANAGEMENT 05/30/2016 AVAAMBER IBRAHIM N Ot 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, UNSPE 05/30/2016 AMBER ESCALANTE N Ot Z45.2 ENCOUNTER FOR ADJUSTMENT AND MANAGEMENT 06/05/2016 CHASITY BURKS EJ Racquel Ot 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 06/05/2016 STEPHANIE KATHLEEN, JULIO Rosa Ot 789.30 ABDOMINAL/PELVIC SWELLING,MASS/LUMP UNSP 06/05/2016 STEPHANIE KATHLEEN, JULIO Rosa Ot V72.84 EXAM PRE-OPERATIVE NOS 06/05/2016 AMBER ESCALANTE N Ot 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 SOLID ORGAN U 06/05/2016 AMBER ESCALANTE N Ot 397.0 TRICUSPID VALVE DISEASE 06/05/2016 AMBER ESCALANTE N Ot 424.0 MITRAL VALVE DISORDER 06/05/2016 FRANCIS HILAH S MANAGER STRATEGIC Ot 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 SOLID ORGAN U 06/05/2016 FRANCISKELVINAH S MANAGER STRATEGIC Ot 272.0 PURE HYPERCHOLESTEROLEM 06/05/2016 FRANCISKELVINAH S MANAGER STRATEGIC Ot 401.9 HYPERTENSION NOS 06/05/2016 FRANCISKELVINAH S MANAGER STRATEGIC Ot 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 06/05/2016 FRANCISKELVINAH S MANAGER STRATEGIC Ot 530.81 ESOPHAGEAL REFLUX 06/05/2016 FRANCISKELVINAH S MANAGER STRATEGIC Ot V58.69 OTH MED,LT,CURRENT USE 06/05/2016 STEPHANIE KATHLEEN, JULIO Rosa Ot 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 SOLID ORGAN U 06/05/2016 STEPHANIE KATHLEEN, JULIO Rosa Ot V72.84 EXAM PRE-OPERATIVE NOS 06/05/2016 FRANCISKELVINAH S MANAGER STRATEGIC Ot 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 SOLID ORGAN U 06/05/2016 FRANCIS HILAH S MANAGER STRATEGIC Ot 272.0 PURE HYPERCHOLESTEROLEM 06/05/2016 FRANCIS HILAH S MANAGER STRATEGIC Ot 401.9 HYPERTENSION NOS 06/05/2016 FRANCIS HILAH S MANAGER STRATEGIC Ot 530.81 ESOPHAGEAL REFLUX 06/05/2016 FRANCISKELVINAH S MANAGER STRATEGIC Ot V58.69 OTH MED,LT,CURRENT USE 06/05/2016 FRANCIS HILAH S MANAGER STRATEGIC Ot 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 SOLID ORGAN U 06/05/2016 FRANCIS HILAH S MANAGER STRATEGIC Ot 782.1 NONSPECIF SKIN ERUPT NEC 06/05/2016 NICOLE FRANCIS MANAGER STRATEGIC Ot 782.3 EDEMA 06/05/2016 NICOLE FRANCIS MANAGER STRATEGIC Ot V58.69 OTH MED,LT,CURRENT USE 06/05/2016 AMBER ESCALANTE Ot 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 SOLID ORGAN U 06/05/2016 NICOLE FRANCIS MANAGER STRATEGIC Ot 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 SOLID ORGAN U 06/05/2016 NICOLE FRANCIS MANAGER STRATEGIC Ot 272.0 PURE HYPERCHOLESTEROLEM 06/05/2016 NICOLE FRANCIS MANAGER STRATEGIC Ot 401.9 HYPERTENSION NOS 06/05/2016 NICOLE FRANCIS MANAGER STRATEGIC Ot 530.81 ESOPHAGEAL REFLUX 06/05/2016 NICOLE FRANCIS MANAGER STRATEGIC Ot V58.69 OTH MED,LT,CURRENT USE 06/05/2016 NICOLE FRANCIS MANAGER STRATEGIC Ot 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 SOLID ORGAN U 06/05/2016 NICOLE FRANCISP Ot V58.69 OTH MED,LT,CURRENT USE 06/05/2016 AMBER ESCALANTE Ot 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 SOLID ORGAN U 06/05/2016 AMBER ESCALANTE Ot V58.81 FIT/ADJ VASCULAR CATHETER 06/05/2016 AMBER ESCALANTE Ot 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 SOLID ORGAN U 06/05/2016 AMBER ESCALANTE Ot V58.81 FIT/ADJ VASCULAR CATHETER 06/05/2016 NICOLE FRANCIS MANAGER STRATEGIC Ot 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 SOLID ORGAN U 06/05/2016 NICOLE FRANCIS MANAGER STRATEGIC Ot 272.0 PURE HYPERCHOLESTEROLEM 06/05/2016 NICOLE FRANCIS MANAGER STRATEGIC Ot 401.9 HYPERTENSION NOS 06/05/2016 NICOLE FRANCIS MANAGER STRATEGIC Ot 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 06/05/2016 NICOLE FRANCIS MANAGER STRATEGIC Ot 530.81 ESOPHAGEAL REFLUX 06/05/2016 NICOLE FRANCIS MANAGER STRATEGIC Ot 785.6 ENLARGEMENT LYMPH NODES 06/05/2016 NICOLE FRANCIS MANAGER STRATEGIC Ot 792.1 ABN FIND-STOOL CONTENTS 06/05/2016 NICOLE FRANCIS MANAGER STRATEGIC Ot V58.69 OTH MED,LT,CURRENT USE 06/05/2016 AMBER ESCALANTE N Ot 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 SOLID ORGAN U 06/05/2016 AMBER ESCALANTE N Ot 272.0 PURE HYPERCHOLESTEROLEM 06/05/2016 AMBER ESCALANTE N Ot 401.9 HYPERTENSION NOS 06/05/2016 AMBER ESCALANTE N Ot 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 06/05/2016 AMBER ESCALANTE N Ot 530.81 ESOPHAGEAL REFLUX 06/05/2016 AMBER ESCALANTE N Ot 785.6 ENLARGEMENT LYMPH NODES 06/05/2016 AMBER ESCALANTE N Ot 792.1 ABN FIND-STOOL CONTENTS 06/05/2016 AMBER ESCALANTE N Ot V58.69 OTH MED,LT,CURRENT USE 06/05/2016 AMBER ESCALANTE N Ot 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, UNSPE 06/05/2016 AMBER ESCALANTE N Ot Z45.2 ENCOUNTER FOR ADJUSTMENT AND MANAGEMENT 06/05/2016 NICOLE FRANCIS MANAGER STRATEGIC Ot 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, UNSPE 06/05/2016 NICOLE FRANCIS MANAGER STRATEGIC Ot E78.0 PURE HYPERCHOLESTEROLEMIA 06/05/2016 NICOLE FRANCIS MANAGER STRATEGIC Ot I 10 ESSENTIAL (PRIMARY) HYPERTENSION 06/05/2016 NICOLE FRANCISP Ot I89.0 LYMPHEDEMA, NOT ELSEWHERE CLASSIFIED 06/05/2016 NICOLE FRANCISP Ot K21.9 GASTRO-ESOPHAGEAL REFLUX DISEASE WITHOUT 06/05/2016 NICOLE FRANCIS MANAGER STRATEGIC Ot Z79.899 OTHER HALF-WAY (CURRENT) DRUG THERAPY 06/05/2016 AMBER ESCALANTE N Ot 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, UNSPE 06/05/2016 AMBER ESCALANTE N Ot Z45.2 ENCOUNTER FOR ADJUSTMENT AND MANAGEMENT 06/05/2016 AMBER ESCALANTE N Ot 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, UNSPE 06/05/2016 AMBER ESCALANTE N Ot E78.0 PURE HYPERCHOLESTEROLEMIA 06/05/2016 AMBER ESCALANTE N Ot I10 ESSENTIAL (PRIMARY) HYPERTENSION 06/05/2016 AVA JACLYNPOPPY N Ot I89.0 LYMPHEDEMA, NOT ELSEWHERE CLASSIFIED 06/05/2016 AMBER ESCALANTE N Ot K21.9 GASTRO-ESOPHAGEAL REFLUX DISEASE WITHOUT 06/05/2016 AMBER ESCALANTE N Ot Z45.2 ENCOUNTER FOR ADJUSTMENT AND MANAGEMENT 06/05/2016 AMBER ESCALANTE N Ot Z79.899 OTHER RELEASE AND TECHNICAL RECORDS CLERK (CURRENT) DRUG THERAPY 06/05/2016 AMBER ESCALANTE N Ot 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, UNSPE 06/05/2016 AMBER ESCALANTE N Ot E78.0 PURE HYPERCHOLESTEROLEMIA 06/05/2016 AMBER ESCALANTE N Ot I10 ESSENTIAL (PRIMARY) HYPERTENSION 06/05/2016 AMBER ESCALANTE N Ot I89.0 LYMPHEDEMA, NOT ELSEWHERE CLASSIFIED 06/05/2016 AMBER ESCALANTE N Ot K21.9 GASTRO-ESOPHAGEAL REFLUX DISEASE WITHOUT 06/05/2016 AMBER ESCALANTE N Ot Z79.899 OTHER HALF-WAY (CURRENT) DRUG THERAPY 06/05/2016 NICOLE FRANCISP Ot 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, UNSPE 06/05/2016 NICOLE FRANCIS MANAGER STRATEGIC Ot E78.0 PURE HYPERCHOLESTEROLEMIA 06/05/2016 NICOLE FRANCIS S MANAGER STRATEGIC Ot I 10 ESSENTIAL (PRIMARY) HYPERTENSION 06/05/2016 NICOLE FRANCISP Ot I89.0 LYMPHEDEMA, NOT ELSEWHERE CLASSIFIED 06/05/2016 NICOLE FRANCISP Ot K21.9 GASTRO-ESOPHAGEAL REFLUX DISEASE WITHOUT 06/05/2016 NICOLE FRANCIS MANAGER STRATEGIC Ot Z45.2 ENCOUNTER FOR ADJUSTMENT AND MANAGEMENT 06/05/2016 NICOLE FRANCISP Ot Z79.899 OTHER HALF-WAY (CURRENT) DRUG THERAPY 06/05/2016 AMBER ESCALANTE N Ot 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, UNSPE 06/05/2016 AMBER ESCALANTE N Ot Z45.2 ENCOUNTER FOR ADJUSTMENT AND MANAGEMENT 06/05/2016 NICOLE FRANCIS MANAGER STRATEGIC Ot 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, UNSPE 06/05/2016 NICOLE FRANCIS S MANAGER STRATEGIC Ot E78.0 PURE HYPERCHOLESTEROLEMIA 06/05/2016 NICOLE FRANCIS S MANAGER STRATEGIC Ot I 10 ESSENTIAL (PRIMARY) HYPERTENSION 06/05/2016 NICOLE FRANCIS S MANAGER STRATEGIC Ot Z79.899 OTHER HALF-WAY (CURRENT) DRUG THERAPY 06/05/2016 AMBER ESCALANTE N Ot 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, UNSPE 06/05/2016 AVA AMBER Ann Ot E78.0 PURE HYPERCHOLESTEROLEMIA 06/05/2016 AVA AMBER Ann Ot I10 ESSENTIAL (PRIMARY) HYPERTENSION 06/05/2016 AVA JACLYNPOPPY Marissa Ot Z79.899 OTHER RELEASE AND TECHNICAL RECORDS CLERK (CURRENT) DRUG THERAPY 06/05/2016 AVA AMBER Ann Ot 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, UNSPE 06/05/2016 AVA AMBER N Ot Z45.2 ENCOUNTER FOR ADJUSTMENT AND MANAGEMENT 06/05/2016 AVA AMBER Ann Ot 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, UNSPE 06/05/2016 AVAAMBER Ot Z45.2 ENCOUNTER FOR ADJUSTMENT AND MANAGEMENT 06/05/2016 AVA AMBER Ann Ot 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, UNSPE 06/05/2016 AVAAMBER Ot Z45.2 ENCOUNTER FOR ADJUSTMENT AND MANAGEMENT 06/06/2016 AVA AMBER N Ot 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, LYMPH NODE 06/13/2016 AVA, AMBER N Ot 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, LYMPH NODE 06/13/2016 AVAAMBER N Ot I10 ESSENTIAL (PRIMARY) HYPERTENSION 06/13/2016 AVAAMBER N Ot I89.0 LYMPHEDEMA, NOT ELSEWHERE CLASSIFIED 06/13/2016 AVAAMBER Ot K21.9 GASTRO-ESOPHAGEAL REFLUX DISEASE WITHOUT 06/13/2016 AMBER ESCALANTE Ot Z79.899 OTHER RELEASE AND TECHNICAL RECORDS CLERK (CURRENT) DRUG THERAPY 06/17/2016 AVA AMBER N Ot 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, LYMPH NODE 06/17/2016 AVA AMBER N Ot 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, UNSPE 06/17/2016 AVAAMBER N Ot I10 ESSENTIAL (PRIMARY) HYPERTENSION 06/17/2016 AVAAMBER N Ot I89.0 LYMPHEDEMA, NOT ELSEWHERE CLASSIFIED 06/17/2016 AMBER ESCALANTE N Ot K21.9 GASTRO-ESOPHAGEAL REFLUX DISEASE WITHOUT 06/17/2016 AMBER ESCALANTE N Ot Z45.2 ENCOUNTER FOR ADJUSTMENT AND MANAGEMENT 06/17/2016 AMBER ESCALANTE N Ot Z51.11 ENCOUNTER FOR ANTINEOPLASTIC CHEMOTHERAP 06/17/2016 AMBER ESCALANTE N Ot Z79.899 OTHER HALF-WAY (CURRENT) DRUG THERAPY 06/18/2016 AMBER ESCALANTE N Ot 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, LYMPH NODE 06/18/2016 AMBER ESCALANTE N Ot I10 ESSENTIAL (PRIMARY) HYPERTENSION 06/18/2016 AMBER ESCALANTE N Ot I89.0 LYMPHEDEMA, NOT ELSEWHERE CLASSIFIED 06/18/2016 AMBER ESCALANTE N Ot K21.9 GASTRO-ESOPHAGEAL REFLUX DISEASE WITHOUT 06/18/2016 AMBER ESCALANTE N Ot Z51.11 ENCOUNTER FOR ANTINEOPLASTIC CHEMOTHERAP 06/18/2016 AMBER ESCALANTE N Ot Z79.899 OTHER HALF-WAY (CURRENT) DRUG THERAPY 07/03/2016 AMBER ESCALANTE N Ot 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, LYMPH NODE 07/04/2016 AMBER ESCALANTE Marissa Ot 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, LYMPH NODE 07/04/2016 AMBER ESCALANTE N Ot I10 ESSENTIAL (PRIMARY) HYPERTENSION 07/04/2016 AMBER ESCALANTE N Ot I89.0 LYMPHEDEMA, NOT ELSEWHERE CLASSIFIED 07/04/2016 AMBER ESCALANTE N Ot K21.9 GASTRO-ESOPHAGEAL REFLUX DISEASE WITHOUT 07/04/2016 AMBER ESCALANTE N Ot Z79.899 OTHER RELEASE AND TECHNICAL RECORDS CLERK (CURRENT) DRUG THERAPY 07/09/2016 AMBER ESCALANTE N Ot 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, LYMPH NODE 07/09/2016 AMBER ESCALANTE N Ot I10 ESSENTIAL (PRIMARY) HYPERTENSION 07/09/2016 AMBER ESCALANTE N Ot I89.0 LYMPHEDEMA, NOT ELSEWHERE CLASSIFIED 07/09/2016 AMBER ESCALANTE N Ot K21.9 GASTRO-ESOPHAGEAL REFLUX DISEASE WITHOUT 07/09/2016 AMBER ESCALANTE N Ot Z79.899 OTHER RELEASE AND TECHNICAL RECORDS CLERK (CURRENT) DRUG THERAPY 07/11/2016 AMBER ESCALANTE N Ot 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, LYMPH NODE 07/18/2016 AMBER ESCALANTE N Ot 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, LYMPH NODE 07/18/2016 AMBER ESCALANTE N Ot I10 ESSENTIAL (PRIMARY) HYPERTENSION 07/18/2016 AMBER ESCALANTE N Ot I89.0 LYMPHEDEMA, NOT ELSEWHERE CLASSIFIED 07/18/2016 AMBER ESCALANTE N Ot K21.9 GASTRO-ESOPHAGEAL REFLUX DISEASE WITHOUT 07/18/2016 AMBER ESCALANTE N Ot Z45.2 ENCOUNTER FOR ADJUSTMENT AND MANAGEMENT 07/18/2016 AMBER ESCALANTE N Ot Z79.899 OTHER HALF-WAY (CURRENT) DRUG THERAPY 07/22/2016 AMBER ESCALANTE N Ot 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, LYMPH NODE 07/22/2016 AMBER ESCALANTE N Ot I10 ESSENTIAL (PRIMARY) HYPERTENSION 07/22/2016 AMBER ESCALANTE N Ot I89.0 LYMPHEDEMA, NOT ELSEWHERE CLASSIFIED 07/22/2016 AMBER ESCALANTE N Ot K21.9 GASTRO-ESOPHAGEAL REFLUX DISEASE WITHOUT 07/22/2016 AMBER ESCALANTE N Ot Z51.11 ENCOUNTER FOR ANTINEOPLASTIC CHEMOTHERAP 07/22/2016 AMBER ESCALANTE N Ot Z79.899 OTHER HALF-WAY (CURRENT) DRUG THERAPY 07/23/2016 AMBER ESCALANTE N Ot 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, LYMPH NODE 07/23/2016 AMBER ESCALATNE N Ot I10 ESSENTIAL (PRIMARY) HYPERTENSION 07/23/2016 AMBER ESCALANTE N Ot I89.0 LYMPHEDEMA, NOT ELSEWHERE CLASSIFIED 07/23/2016 AMBER ESCALANTE N Ot K21.9 GASTRO-ESOPHAGEAL REFLUX DISEASE WITHOUT 07/23/2016 AMBER ESCALANTE N Ot Z45.2 ENCOUNTER FOR ADJUSTMENT AND MANAGEMENT 07/23/2016 AMBER ESCALANTE N Ot Z79.899 OTHER HALF-WAY (CURRENT) DRUG THERAPY 08/09/2016 AMBER ESCALANTE N Ot 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, LYMPH NODE 08/09/2016 AMBER ESCALANTE N Ot I10 ESSENTIAL (PRIMARY) HYPERTENSION 08/09/2016 AMBER ESCALANTE N Ot I89.0 LYMPHEDEMA, NOT ELSEWHERE CLASSIFIED 08/09/2016 AMBER ESCALANTE N Ot K21.9 GASTRO-ESOPHAGEAL REFLUX DISEASE WITHOUT 08/09/2016 AMBER ESCALANTE N Ot Z45.2 ENCOUNTER FOR ADJUSTMENT AND MANAGEMENT 08/09/2016 AMBER ESCALANTE N Ot Z79.899 OTHER RELEASE AND TECHNICAL RECORDS CLERK (CURRENT) DRUG THERAPY 08/28/2016 AMBER ESCALANTE N Ot 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, LYMPH NODE 08/28/2016 AVAAMBER IBRAHIM N Ot I10 ESSENTIAL (PRIMARY) HYPERTENSION 08/28/2016 AVAAMBER IBRAHIM N Ot I89.0 LYMPHEDEMA, NOT ELSEWHERE CLASSIFIED 08/28/2016 AVAAMBER IBRAHIM N Ot K21.9 GASTRO-ESOPHAGEAL REFLUX DISEASE WITHOUT 08/28/2016 AVAAMBER IBRAHIM N Ot Z45.2 ENCOUNTER FOR ADJUSTMENT AND MANAGEMENT 08/28/2016 AMBER ESCALANTE N Ot Z79.899 OTHER HALF-WAY (CURRENT) DRUG THERAPY 10/22/2016 AMBER ESCALANTE N Ot 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, LYMPH NODE 10/22/2016 AVAAMBER N Ot Z45.2 ENCOUNTER FOR ADJUSTMENT AND MANAGEMENT 11/06/2016 AMBER ESCALANTE N Ot 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, LYMPH NODE 11/06/2016 AVAAMBER IBRAHIM N Ot Z45.2 ENCOUNTER FOR ADJUSTMENT AND MANAGEMENT 11/12/2016 AMBER ESCALANTE N Ot 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, LYMPH NODE 11/12/2016 AVAAMBER IBRAHIM N Ot Z45.2 ENCOUNTER FOR ADJUSTMENT AND MANAGEMENT 11/15/2016 AMBER ESCALANTE N Ot 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, LYMPH NODE 11/15/2016 AVAAMBER IBRAHIM N Ot I10 ESSENTIAL (PRIMARY) HYPERTENSION 11/15/2016 AMBER ESCALANTE N Ot I89.0 LYMPHEDEMA, NOT ELSEWHERE CLASSIFIED 11/15/2016 AMBER ESCALANTE N Ot K21.9 GASTRO-ESOPHAGEAL REFLUX DISEASE WITHOUT 11/15/2016 AVAAMBER IBRAHIM N Ot Z45.2 ENCOUNTER FOR ADJUSTMENT AND MANAGEMENT 11/15/2016 AMBER ESCALANTE N Ot Z79.899 OTHER HALF-WAY (CURRENT) DRUG THERAPY 11/23/2016 AMBER ESCALANTE N Ot 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0 LYMPHEDEMA, NOT ELSEWHERE CLASSIFIED 01/09/2017 AMBER ESCALANTE N Ot K21.9 GASTRO-ESOPHAGEAL REFLUX DISEASE WITHOUT 01/09/2017 AVAAMBER IBRAHIM N Ot Z45.2 ENCOUNTER FOR ADJUSTMENT AND MANAGEMENT 01/09/2017 AMBER ESCALANTE N Ot Z79.899 OTHER HALF-WAY (CURRENT) DRUG THERAPY 01/18/2017 AMBER ESCALANTE N Ot 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, LYMPH NODE 01/18/2017 AMBER ESCALANTE N Ot I10 ESSENTIAL (PRIMARY) HYPERTENSION 01/18/2017 AMBER ESCALANTE N Ot I89.0 LYMPHEDEMA, NOT ELSEWHERE CLASSIFIED 01/18/2017 AMBER ESCALANTE N Ot K21.9 GASTRO-ESOPHAGEAL REFLUX DISEASE WITHOUT 01/18/2017 AMBER ESCALANTE N Ot Z45.2 ENCOUNTER FOR ADJUSTMENT AND MANAGEMENT 01/18/2017 AMBER ESCALANTE N Ot Z79.899 OTHER HALF-WAY (CURRENT) DRUG THERAPY 02/09/2017 AMBER ESCALANTE N Ot 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, UNSPE 02/09/2017 AMBER ESCALANTE N Ot Z45.2 ENCOUNTER FOR ADJUSTMENT AND MANAGEMENT 02/16/2017 AMBER ESCALANTE N Ot 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, UNSPE 02/16/2017 AMBER ESCALANTE N Ot Z45.2 ENCOUNTER FOR ADJUSTMENT AND MANAGEMENT 02/19/2017 EJ GASPAR DO Ot 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 02/19/2017 STEPHANIE KATHLEEN, JULIO Rosa Ot 789.30 ABDOMINAL/PELVIC SWELLING,MASS/LUMP UNSP 02/19/2017 STEPHANIE KATHLEEN, JULIO Rosa Ot E63.84 EXAM PRE-OPERATIVE NOS 02/19/2017 AMBER ESCALANTE N Ot 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 SOLID ORGAN U 02/19/2017 AMBER ESCALANTE Ot 397.0 TRICUSPID VALVE DISEASE 02/19/2017 AMBER ESCALANTE N Ot 424.0 MITRAL VALVE DISORDER 02/19/2017 NICOLE FRANCIS MANAGER STRATEGIC Ot 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 SOLID ORGAN U 02/19/2017 NICOLE FRANCIS S MANAGER STRATEGIC Ot 272.0 PURE HYPERCHOLESTEROLEM 02/19/2017 NICOLE FRANCIS S MANAGER STRATEGIC Ot 401.9 HYPERTENSION NOS 02/19/2017 NICOLE FRANCIS S MANAGER STRATEGIC Ot 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 02/19/2017 NICOLE FRANCIS S MANAGER STRATEGIC Ot 530.81 ESOPHAGEAL REFLUX 02/19/2017 NICOLE FRANCIS S MANAGER STRATEGIC Ot V58.69 OTH MED,LT,CURRENT USE 02/19/2017 STEPHANIE KATHLEEN, JULIO Rosa Ot 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 SOLID ORGAN U 02/19/2017 STEPHANIE KATHLEEN, JULIO Rosa Ot V72.84 EXAM PRE-OPERATIVE NOS 02/19/2017 NICOLE FRANCIS MANAGER STRATEGIC Ot 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 SOLID ORGAN U 02/19/2017 NICOLE FRANCIS S MANAGER STRATEGIC Ot 272.0 PURE HYPERCHOLESTEROLEM 02/19/2017 NICOLE FRANCIS S MANAGER STRATEGIC Ot 401.9 HYPERTENSION NOS 02/19/2017 NICOLE FRANCIS S MANAGER STRATEGIC Ot 530.81 ESOPHAGEAL REFLUX 02/19/2017 NICOLE FRANCIS S MANAGER STRATEGIC Ot V58.69 OTH MED,LT,CURRENT USE 02/19/2017 NICOLE FRANCIS S MANAGER STRATEGIC Ot 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 SOLID ORGAN U 02/19/2017 NICOLE FRANCIS S MANAGER STRATEGIC Ot 782.1 NONSPECIF SKIN ERUPT NEC 02/19/2017 NICOLE FRANCIS S MANAGER STRATEGIC Ot 782.3 EDEMA 02/19/2017 NICOLE FRANCIS S MANAGER STRATEGIC Ot V58.69 OTH MED,LT,CURRENT USE 02/19/2017 AMBER ESCALANTE N Ot 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 SOLID ORGAN U 02/19/2017 NICOLE FRANCIS S MANAGER STRATEGIC Ot 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 SOLID ORGAN U 02/19/2017 NICOLE FRANCIS S MANAGER STRATEGIC Ot 272.0 PURE HYPERCHOLESTEROLEM 02/19/2017 NICOLE FRANCIS S MANAGER STRATEGIC Ot 401.9 HYPERTENSION NOS 02/19/2017 NICOLE FRANCIS S MANAGER STRATEGIC Ot 530.81 ESOPHAGEAL REFLUX 02/19/2017 FRANCIS NICOLE S MANAGER STRATEGIC Ot V58.69 OTH MED,LT,CURRENT USE 02/19/2017 FRANCISNICOLE Matthew S MANAGER STRATEGIC Ot 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 SOLID ORGAN U 02/19/2017 FRANCISNICOLE Matthew S MANAGER STRATEGIC Ot V58.69 OTH MED,LT,CURRENT USE 02/19/2017 AVA BOBAN N Ot 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 SOLID ORGAN U 02/19/2017 AVA, BOBAN N Ot V58.81 FIT/ADJ VASCULAR CATHETER 02/19/2017 AVA, BOBAN N Ot 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 SOLID ORGAN U 02/19/2017 AVA, BOBAN N Ot V58.81 FIT/ADJ VASCULAR CATHETER 02/19/2017 FRANCISNICOLE Matthew S MANAGER STRATEGIC Ot 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 SOLID ORGAN U 02/19/2017 FRANCIS NICOLE S MANAGER STRATEGIC Ot 272.0 PURE HYPERCHOLESTEROLEM 02/19/2017 FRANCIS NICOLE S MANAGER STRATEGIC Ot 401.9 HYPERTENSION NOS 02/19/2017 FRANCISNICOLE Matthew S MANAGER STRATEGIC Ot 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 02/19/2017 FRANCISNICOLE Matthew S MANAGER STRATEGIC Ot 530.81 ESOPHAGEAL REFLUX 02/19/2017 FRANCISNICOLE Matthew S MANAGER STRATEGIC Ot 785.6 ENLARGEMENT LYMPH NODES 02/19/2017 FRANCISNICOLE Matthew S MANAGER STRATEGIC Ot 792.1 ABN FIND-STOOL CONTENTS 02/19/2017 FRANCIS NICOLE S MANAGER STRATEGIC Ot V58.69 OTH MED,LT,CURRENT USE 02/19/2017 AVA BOBAN N Ot 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 SOLID ORGAN U 02/19/2017 AVA BOBAN N Ot 272.0 PURE HYPERCHOLESTEROLEM 02/19/2017 AVA, BOBAN N Ot 401.9 HYPERTENSION NOS 02/19/2017 AVA, BOBAN N Ot 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 02/19/2017 AVA BOBAN N Ot 530.81 ESOPHAGEAL REFLUX 02/19/2017 AVA, BOBAN N Ot 785.6 ENLARGEMENT LYMPH NODES 02/19/2017 AVA, BOBAN N Ot 792.1 ABN FIND-STOOL CONTENTS 02/19/2017 AVA, BOBAN N Ot V58.69 OTH MED,LT,CURRENT USE 02/19/2017 AVAJACLYN IBRAHIMAN N Ot 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, UNSPE 02/19/2017 AVA, BOBAN N Ot Z45.2 ENCOUNTER FOR ADJUSTMENT AND MANAGEMENT 02/19/2017 NICOLE FRANCIS MANAGER STRATEGIC Ot 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, UNSPE 02/19/2017 FRANCISNICOLE Matthew MANAGER STRATEGIC Ot E78.0 PURE HYPERCHOLESTEROLEMIA 02/19/2017 NICOLE FRANCIS MANAGER STRATEGIC Ot I 10 ESSENTIAL (PRIMARY) HYPERTENSION 02/19/2017 FRANCISNICOLE Matthew MANAGER STRATEGIC Ot I89.0 LYMPHEDEMA, NOT ELSEWHERE CLASSIFIED 02/19/2017 NICOLE FRANCIS MANAGER STRATEGIC Ot K21.9 GASTRO-ESOPHAGEAL REFLUX DISEASE WITHOUT 02/19/2017 FRANCISNICOLE Matthew S MANAGER STRATEGIC Ot Z79.899 OTHER RELEASE AND TECHNICAL RECORDS CLERK (CURRENT) DRUG THERAPY 02/19/2017 AVA, BOBAN N Ot 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, UNSPE 02/19/2017 AVA, BOBAN N Ot Z45.2 ENCOUNTER FOR ADJUSTMENT AND MANAGEMENT 02/19/2017 AVA BOBAN N Ot 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, UNSPE 02/19/2017 AVA BOBAN N Ot E78.0 PURE HYPERCHOLESTEROLEMIA 02/19/2017 AVA, BOBAN N Ot I10 ESSENTIAL (PRIMARY) HYPERTENSION 02/19/2017 AVA, BOBAN N Ot I89.0 LYMPHEDEMA, NOT ELSEWHERE CLASSIFIED 02/19/2017 AVA BOBAN N Ot K21.9 GASTRO-ESOPHAGEAL REFLUX DISEASE WITHOUT 02/19/2017 AVA, BOBAN N Ot Z45.2 ENCOUNTER FOR ADJUSTMENT AND MANAGEMENT 02/19/2017 AVA BOBAN N Ot Z79.899 OTHER HALF-WAY (CURRENT) DRUG THERAPY 02/19/2017 AVA, BOBAN N Ot 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, UNSPE 02/19/2017 AVA, BOBAN N Ot E78.0 PURE HYPERCHOLESTEROLEMIA 02/19/2017 AVA, BOBAN N Ot I10 ESSENTIAL (PRIMARY) HYPERTENSION 02/19/2017 AVA, BOBAN N Ot I89.0 LYMPHEDEMA, NOT ELSEWHERE CLASSIFIED 02/19/2017 AVA, BOBAN N Ot K21.9 GASTRO-ESOPHAGEAL REFLUX DISEASE WITHOUT 02/19/2017 AVAJACLYN IBRAHIMAN N Ot Z79.899 OTHER HALF-WAY (CURRENT) DRUG THERAPY 02/19/2017 FRANCIS NICOLE Matthew MANAGER STRATEGIC Ot 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, UNSPE 02/19/2017 FRANCISNICOLE Matthew MANAGER STRATEGIC Ot E78.0 PURE HYPERCHOLESTEROLEMIA 02/19/2017 NICOLE FRANCIS MANAGER STRATEGIC Ot I 10 ESSENTIAL (PRIMARY) HYPERTENSION 02/19/2017 KELVIN FRANCISMONTRELL Vipul MANAGER STRATEGIC Ot I89.0 LYMPHEDEMA, NOT ELSEWHERE CLASSIFIED 02/19/2017 FRANCIS NICOLE Matthew MANAGER STRATEGIC Ot K21.9 GASTRO-ESOPHAGEAL REFLUX DISEASE WITHOUT 02/19/2017 KELVIN FRANCISMONTRELL Matthew MANAGER STRATEGIC Ot Z45.2 ENCOUNTER FOR ADJUSTMENT AND MANAGEMENT 02/19/2017 NICOLE FRANCIS MANAGER STRATEGIC Ot Z79.899 OTHER RELEASE AND TECHNICAL RECORDS CLERK (CURRENT) DRUG THERAPY 02/19/2017 AMBER ESCALANTE N Ot 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, UNSPE 02/19/2017 AMBER ESCALANTE N Ot Z45.2 ENCOUNTER FOR ADJUSTMENT AND MANAGEMENT 02/19/2017 NICOLE FRANCIS MANAGER STRATEGIC Ot 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, UNSPE 02/19/2017 KELVIN FRANCISMONTRELL Matthew MANAGER STRATEGIC Ot E78.0 PURE HYPERCHOLESTEROLEMIA 02/19/2017 NICOLE FRANCIS MANAGER STRATEGIC Ot I 10 ESSENTIAL (PRIMARY) HYPERTENSION 02/19/2017 NICOLE FRANCIS MANAGER STRATEGIC Ot Z79.899 OTHER RELEASE AND TECHNICAL RECORDS CLERK (CURRENT) DRUG THERAPY 02/19/2017 AMBER ESCALANTE N Ot 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, UNSPE 02/19/2017 AVAAMBER IBRAHIM N Ot E78.0 PURE HYPERCHOLESTEROLEMIA 02/19/2017 AVA, BOBPOPPY N Ot I10 ESSENTIAL (PRIMARY) HYPERTENSION 02/19/2017 AVAAMBER IBRAHIM N Ot Z79.899 OTHER HALF-WAY (CURRENT) DRUG THERAPY 02/19/2017 AVAAMBER IBRAHIM N Ot 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, UNSPE 02/19/2017 AVAAMBER IBRAHIM N Ot Z45.2 ENCOUNTER FOR ADJUSTMENT AND MANAGEMENT 02/19/2017 AMBER ESCALANTE N Ot 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, LYMPH NODE 02/19/2017 AMBER ESCALANTE N Ot 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, UNSPE 02/19/2017 AMBER ESCALANTE N Ot Z45.2 ENCOUNTER FOR ADJUSTMENT AND MANAGEMENT 02/19/2017 AMBER ESCALANTE N Ot 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, LYMPH NODE 02/19/2017 AVAAMBER IBRAHIM N Ot I10 ESSENTIAL (PRIMARY) HYPERTENSION 02/19/2017 AVAAMBER N Ot I89.0 LYMPHEDEMA, NOT ELSEWHERE CLASSIFIED 02/19/2017 AVAAMBER IBRAHIM N Ot K21.9 GASTRO-ESOPHAGEAL REFLUX DISEASE WITHOUT 02/19/2017 AVA, AMBER N Ot Z79.899 OTHER RELEASE AND TECHNICAL RECORDS CLERK (CURRENT) DRUG THERAPY 02/19/2017 AMBER ESCALANTE N Ot 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, LYMPH NODE 02/19/2017 AVAAMBER N Ot I10 ESSENTIAL (PRIMARY) HYPERTENSION 02/19/2017 AVAAMBER N Ot I89.0 LYMPHEDEMA, NOT ELSEWHERE CLASSIFIED 02/19/2017 AVAAMBER N Ot K21.9 GASTRO-ESOPHAGEAL REFLUX DISEASE WITHOUT 02/19/2017 AVAAMBER N Ot Z45.2 ENCOUNTER FOR ADJUSTMENT AND MANAGEMENT 02/19/2017 AVAAMBER N Ot Z79.899 OTHER HALF-WAY (CURRENT) DRUG THERAPY 02/19/2017 AMBER ESCALANTE N Ot 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, LYMPH NODE 02/19/2017 AVAAMBER N Ot I10 ESSENTIAL (PRIMARY) HYPERTENSION 02/19/2017 AVAAMBER N Ot I89.0 LYMPHEDEMA, NOT ELSEWHERE CLASSIFIED 02/19/2017 AVAAMBER N Ot K21.9 GASTRO-ESOPHAGEAL REFLUX DISEASE WITHOUT 02/19/2017 AVAAMBER N Ot Z45.2 ENCOUNTER FOR ADJUSTMENT AND MANAGEMENT 02/19/2017 AVAAMBER N Ot Z79.899 OTHER RELEASE AND TECHNICAL RECORDS CLERK (CURRENT) DRUG THERAPY 02/19/2017 AMBER ESCALANTE N Ot 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, LYMPH NODE 02/19/2017 AVAAMBER N Ot Z45.2 ENCOUNTER FOR ADJUSTMENT AND MANAGEMENT 02/19/2017 AVAAMBER IBRAHIM N Ot 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, LYMPH NODE 02/19/2017 AMBER ESCALANTE Ot I10 ESSENTIAL (PRIMARY) HYPERTENSION 02/19/2017 AMBER ESCALANTE Ot I89.0 LYMPHEDEMA, NOT ELSEWHERE CLASSIFIED 02/19/2017 AMBER ESCALANTE Ot K21.9 GASTRO-ESOPHAGEAL REFLUX DISEASE WITHOUT 02/19/2017 AMBER ESCALANTE Ot Z45.2 ENCOUNTER FOR ADJUSTMENT AND MANAGEMENT 02/19/2017 AMBER ESCALANTE Ot Z79.899 OTHER RELEASE AND TECHNICAL RECORDS CLERK (CURRENT) DRUG THERAPY 02/19/2017 AMBER ESCALANTE Ot 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, UNSPE 02/19/2017 AMBER ESCALANTE Ot Z45.2 ENCOUNTER FOR ADJUSTMENT AND MANAGEMENT 02/19/2017 AMBER ESCALANTE Ot 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, UNSPE 02/19/2017 AMBER ESCALANTE N Ot Z45.2 ENCOUNTER FOR ADJUSTMENT AND MANAGEMENT 02/26/2017 EJ GASPAR DO Ot 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 02/26/2017 STEPHANIE KATHLEEN, JULIO Rosa Ot 789.30 ABDOMINAL/PELVIC SWELLING,MASS/LUMP UNSP 02/26/2017 STEPHANIE KATHLEEN, JULIO Rosa Ot V72.84 EXAM PRE-OPERATIVE NOS 02/26/2017 AMBER ESCALANTE N Ot 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 SOLID ORGAN U 02/26/2017 AMBER ESCALANTE N Ot 397.0 TRICUSPID VALVE DISEASE 02/26/2017 AMBER ESCALANTE N Ot 424.0 MITRAL VALVE DISORDER 02/26/2017 NICOLE FRANCIS MANAGER STRATEGIC Ot 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 SOLID ORGAN U 02/26/2017 NICOLE FRANCIS MANAGER STRATEGIC Ot 272.0 PURE HYPERCHOLESTEROLEM 02/26/2017 NICOLE FRANCIS MANAGER STRATEGIC Ot 401.9 HYPERTENSION NOS 02/26/2017 NICOLE FRANCIS MANAGER STRATEGIC Ot 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 02/26/2017 NICOLE FRANCIS MANAGER STRATEGIC Ot 530.81 ESOPHAGEAL REFLUX 02/26/2017 NICOLE FRANCIS MANAGER STRATEGIC Ot V58.69 OTH MED,LT,CURRENT USE 02/26/2017 STEPHANIE KATHLEEN, JULIO M Ot 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 SOLID ORGAN U 02/26/2017 STEPHANIE KATHLEEN, JULIO Rosa Ot V72.84 EXAM PRE-OPERATIVE NOS 02/26/2017 NICOLE FRANCIS S MANAGER STRATEGIC Ot 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 SOLID ORGAN U 02/26/2017 NICOLE FRANCIS S MANAGER STRATEGIC Ot 272.0 PURE HYPERCHOLESTEROLEM 02/26/2017 NICOLE FRANCIS S MANAGER STRATEGIC Ot 401.9 HYPERTENSION NOS 02/26/2017 KELVIN FRANCISAH S MANAGER STRATEGIC Ot 530.81 ESOPHAGEAL REFLUX 02/26/2017 NICOLE FRANCIS S MANAGER STRATEGIC Ot V58.69 OTH MED,LT,CURRENT USE 02/26/2017 NICOLE FRANCIS S MANAGER STRATEGIC Ot 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 SOLID ORGAN U 02/26/2017 NICOLE FRANCIS S MANAGER STRATEGIC Ot 782.1 NONSPECIF SKIN ERUPT NEC 02/26/2017 NICOLE FRANCIS S MANAGER STRATEGIC Ot 782.3 EDEMA 02/26/2017 NICOLE FRANCIS S MANAGER STRATEGIC Ot V58.69 OTH MED,LT,CURRENT USE 02/26/2017 AMBER ESCALANTE N Ot 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 SOLID ORGAN U 02/26/2017 NICOLE FRANCIS S MANAGER STRATEGIC Ot 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 SOLID ORGAN U 02/26/2017 NICOLE FRANCIS S MANAGER STRATEGIC Ot 272.0 PURE HYPERCHOLESTEROLEM 02/26/2017 NICOLE FRANCIS S MANAGER STRATEGIC Ot 401.9 HYPERTENSION NOS 02/26/2017 NICOLE FRANCIS S MANAGER STRATEGIC Ot 530.81 ESOPHAGEAL REFLUX 02/26/2017 NICOLE FRANCIS S MANAGER STRATEGIC Ot V58.69 OTH MED,LT,CURRENT USE 02/26/2017 NICOLE FRANCIS S MANAGER STRATEGIC Ot 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 SOLID ORGAN U 02/26/2017 NICOLE FRANCIS S MANAGER STRATEGIC Ot V58.69 OTH MED,LT,CURRENT USE 02/26/2017 AMBER ESCALANTE N Ot 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 SOLID ORGAN U 02/26/2017 AMBER ESCALANTE Ot V58.81 FIT/ADJ VASCULAR CATHETER 02/26/2017 AMBER ESCALANTE N Ot 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 SOLID ORGAN U 02/26/2017 AMBER ESCALANTE Ot V58.81 FIT/ADJ VASCULAR CATHETER 02/26/2017 NICOLE FRANCIS MANAGER STRATEGIC Ot 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 SOLID ORGAN U 02/26/2017 NICOLE FRANCIS MANAGER STRATEGIC Ot 272.0 PURE HYPERCHOLESTEROLEM 02/26/2017 NICOLE FRANCIS MANAGER STRATEGIC Ot 401.9 HYPERTENSION NOS 02/26/2017 NICOLE FRANCIS MANAGER STRATEGIC Ot 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 02/26/2017 NICOLE FRANCIS MANAGER STRATEGIC Ot 530.81 ESOPHAGEAL REFLUX 02/26/2017 NICOLE FRANCIS MANAGER STRATEGIC Ot 785.6 ENLARGEMENT LYMPH NODES 02/26/2017 NICOLE FRANCIS MANAGER STRATEGIC Ot 792.1 ABN FIND-STOOL CONTENTS 02/26/2017 NICOLE FRANCIS MANAGER STRATEGIC Ot V58.69 OTH MED,LT,CURRENT USE 02/26/2017 AVA, BOBAN N Ot 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 SOLID ORGAN U 02/26/2017 AVA, BOBAN N Ot 272.0 PURE HYPERCHOLESTEROLEM 02/26/2017 AVA BOBAN N Ot 401.9 HYPERTENSION NOS 02/26/2017 AVA BOBAN N Ot 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 02/26/2017 AVA BOBAN N Ot 530.81 ESOPHAGEAL REFLUX 02/26/2017 AVA BOBAN N Ot 785.6 ENLARGEMENT LYMPH NODES 02/26/2017 AVA BOBAN N Ot 792.1 ABN FIND-STOOL CONTENTS 02/26/2017 JACLYN ESCALANTEAN N Ot V58.69 OTH MED,LT,CURRENT USE 02/26/2017 AVA BOBAN N Ot 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, UNSPE 02/26/2017 AVA BOBAN N Ot Z45.2 ENCOUNTER FOR ADJUSTMENT AND MANAGEMENT 02/26/2017 NICOLE FRANCIS MANAGER STRATEGIC Ot 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, UNSPE 02/26/2017 NICOLE FRANCIS MANAGER STRATEGIC Ot E78.0 PURE HYPERCHOLESTEROLEMIA 02/26/2017 NICOLE FRANCIS MANAGER STRATEGIC Ot I 10 ESSENTIAL (PRIMARY) HYPERTENSION 02/26/2017 NICOLE FRANCIS MANAGER STRATEGIC Ot I89.0 LYMPHEDEMA, NOT ELSEWHERE CLASSIFIED 02/26/2017 NICOLE FRANCIS MANAGER STRATEGIC Ot K21.9 GASTRO-ESOPHAGEAL REFLUX DISEASE WITHOUT 02/26/2017 NICOLE FRANCIS MANAGER STRATEGIC Ot Z79.899 OTHER HALF-WAY (CURRENT) DRUG THERAPY 02/26/2017 AMBER ESCALANTE N Ot 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, UNSPE 02/26/2017 AVAAMBER IBRAHIM N Ot Z45.2 ENCOUNTER FOR ADJUSTMENT AND MANAGEMENT 02/26/2017 AMBER ESCALANTE N Ot 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, UNSPE 02/26/2017 AVAAMBER IBRAHIM N Ot E78.0 PURE HYPERCHOLESTEROLEMIA 02/26/2017 AVA, BOBAN N Ot I10 ESSENTIAL (PRIMARY) HYPERTENSION 02/26/2017 AVA BOBAN N Ot I89.0 LYMPHEDEMA, NOT ELSEWHERE CLASSIFIED 02/26/2017 AVAAMBER IBRAHIM N Ot K21.9 GASTRO-ESOPHAGEAL REFLUX DISEASE WITHOUT 02/26/2017 AVAAMBER N Ot Z45.2 ENCOUNTER FOR ADJUSTMENT AND MANAGEMENT 02/26/2017 AMBER ESCALANTE N Ot Z79.899 OTHER HALF-WAY (CURRENT) DRUG THERAPY 02/26/2017 AMBER ESCALANTE N Ot 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, UNSPE 02/26/2017 AVA, BOBPOPPY N Ot E78.0 PURE HYPERCHOLESTEROLEMIA 02/26/2017 AVA, BOBPOPPY N Ot I10 ESSENTIAL (PRIMARY) HYPERTENSION 02/26/2017 AVAAMBER N Ot I89.0 LYMPHEDEMA, NOT ELSEWHERE CLASSIFIED 02/26/2017 AVAAMBER IBRAHIM N Ot K21.9 GASTRO-ESOPHAGEAL REFLUX DISEASE WITHOUT 02/26/2017 AVAAMBER IBRAHIM N Ot Z79.899 OTHER RELEASE AND TECHNICAL RECORDS CLERK (CURRENT) DRUG THERAPY 02/26/2017 NICOLE FRANCIS MANAGER STRATEGIC Ot 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, UNSPE 02/26/2017 NICOLE FRANCIS MANAGER STRATEGIC Ot E78.0 PURE HYPERCHOLESTEROLEMIA 02/26/2017 NICOLE FRANCIS MANAGER STRATEGIC Ot I 10 ESSENTIAL (PRIMARY) HYPERTENSION 02/26/2017 NICOLE FRANCIS MANAGER STRATEGIC Ot I89.0 LYMPHEDEMA, NOT ELSEWHERE CLASSIFIED 02/26/2017 NICOLE FRANCIS MANAGER STRATEGIC Ot K21.9 GASTRO-ESOPHAGEAL REFLUX DISEASE WITHOUT 02/26/2017 NICOLE FRANCIS MANAGER STRATEGIC Ot Z45.2 ENCOUNTER FOR ADJUSTMENT AND MANAGEMENT 02/26/2017 PENNY NICOLE Matthew MANAGER STRATEGIC Ot Z79.899 OTHER HALF-WAY (CURRENT) DRUG THERAPY 02/26/2017 AMBER ESCALANTE N Ot 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, UNSPE 02/26/2017 AVAAMBER IBRAHIM N Ot Z45.2 ENCOUNTER FOR ADJUSTMENT AND MANAGEMENT 02/26/2017 FRANCIS NICOLE Matthew MANAGER STRATEGIC Ot 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, UNSPE 02/26/2017 FRANCIS NICOLE Matthew MANAGER STRATEGIC Ot E78.0 PURE HYPERCHOLESTEROLEMIA 02/26/2017 NICOLE FRANCIS MANAGER STRATEGIC Ot I 10 ESSENTIAL (PRIMARY) HYPERTENSION 02/26/2017 PENNY NICOLE Vipul MANAGER STRATEGIC Ot Z79.899 OTHER HALF-WAY (CURRENT) DRUG THERAPY 02/26/2017 AMBER ESCALANTE N Ot 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, UNSPE 02/26/2017 AMBER ESCALANTE N Ot E78.0 PURE HYPERCHOLESTEROLEMIA 02/26/2017 AMBER ESCALANTE N Ot I10 ESSENTIAL (PRIMARY) HYPERTENSION 02/26/2017 AMBER ESCALANTE N Ot Z79.899 OTHER HALF-WAY (CURRENT) DRUG THERAPY 02/26/2017 AMBER ESCALANTE N Ot 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, UNSPE 02/26/2017 AMBER ESCALANTE N Ot Z45.2 ENCOUNTER FOR ADJUSTMENT AND MANAGEMENT 02/26/2017 AMBER SECALANTE N Ot 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, LYMPH NODE 02/26/2017 AMBER ESCALANTE N Ot 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, UNSPE 02/26/2017 AVAAMBER IBRAHIM N Ot Z45.2 ENCOUNTER FOR ADJUSTMENT AND MANAGEMENT 02/26/2017 AVAAMBER IBRAHIM N Ot 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, LYMPH NODE 02/26/2017 AMBER ESCALANTE N Ot I10 ESSENTIAL (PRIMARY) HYPERTENSION 02/26/2017 AMBER ESCALANTE N Ot I89.0 LYMPHEDEMA, NOT ELSEWHERE CLASSIFIED 02/26/2017 AMBER ESCALANTE N Ot K21.9 GASTRO-ESOPHAGEAL REFLUX DISEASE WITHOUT 02/26/2017 AMBER ESCALANTE N Ot Z79.899 OTHER RELEASE AND TECHNICAL RECORDS CLERK (CURRENT) DRUG THERAPY 02/26/2017 AMBER ESCALANTE N Ot 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, LYMPH NODE 02/26/2017 AVA BOBAN N Ot I10 ESSENTIAL (PRIMARY) HYPERTENSION 02/26/2017 AVA BOBAN N Ot I89.0 LYMPHEDEMA, NOT ELSEWHERE CLASSIFIED 02/26/2017 AVAAMBER IBRAHIM N Ot K21.9 GASTRO-ESOPHAGEAL REFLUX DISEASE WITHOUT 02/26/2017 AVA BOBAN N Ot Z45.2 ENCOUNTER FOR ADJUSTMENT AND MANAGEMENT 02/26/2017 AVAAMBER IBRAHIM N Ot Z79.899 OTHER RELEASE AND TECHNICAL RECORDS CLERK (CURRENT) DRUG THERAPY 02/26/2017 AVAJACLYNAN N Ot 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, LYMPH NODE 02/26/2017 AVA, BOBAN N Ot I10 ESSENTIAL (PRIMARY) HYPERTENSION 02/26/2017 AVA BOBPOPPY N Ot I89.0 LYMPHEDEMA, NOT ELSEWHERE CLASSIFIED 02/26/2017 AVAAMBER N Ot K21.9 GASTRO-ESOPHAGEAL REFLUX DISEASE WITHOUT 02/26/2017 AVAAMBER N Ot Z45.2 ENCOUNTER FOR ADJUSTMENT AND MANAGEMENT 02/26/2017 AVAAMBER N Ot Z79.899 OTHER HALF-WAY (CURRENT) DRUG THERAPY 02/26/2017 AVA BOBAN N Ot 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, LYMPH NODE 02/26/2017 AVA BOBPOPPY N Ot Z45.2 ENCOUNTER FOR ADJUSTMENT AND MANAGEMENT 02/26/2017 AVA BOBPOPPY N Ot 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, LYMPH NODE 02/26/2017 AVA, BOBPOPPY N Ot I10 ESSENTIAL (PRIMARY) HYPERTENSION 02/26/2017 AVAAMBER N Ot I89.0 LYMPHEDEMA, NOT ELSEWHERE CLASSIFIED 02/26/2017 AVA BOBAN N Ot K21.9 GASTRO-ESOPHAGEAL REFLUX DISEASE WITHOUT 02/26/2017 AVA BOBAN N Ot Z45.2 ENCOUNTER FOR ADJUSTMENT AND MANAGEMENT 02/26/2017 AVA BOBAN N Ot Z79.899 OTHER HALF-WAY (CURRENT) DRUG THERAPY 02/27/2017 AVA BOBAN N Ot 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, LYMPH NODE 02/27/2017 AVAAMBER N Ot Z01.89 ENCOUNTER FOR OTHER SPECIFIED SPECIAL EX 02/27/2017 AVA BOBAN N Ot 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, LYMPH NODE 02/27/2017 AMBER ESCALANTE N Ot I10 ESSENTIAL (PRIMARY) HYPERTENSION 02/27/2017 AVAAMBER IBRAHIM N Ot I89.0 LYMPHEDEMA, NOT ELSEWHERE CLASSIFIED 02/27/2017 AMBER ESCALANTE N Ot K21.9 GASTRO-ESOPHAGEAL REFLUX DISEASE WITHOUT 02/27/2017 AVAAMBER N Ot Z79.899 OTHER RELEASE AND TECHNICAL RECORDS CLERK (CURRENT) DRUG THERAPY 03/20/2017 AMBER ESCALANTE N Ot 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, LYMPH NODE 03/20/2017 AMBER ESCALANTE N Ot Z01.89 ENCOUNTER FOR OTHER SPECIFIED SPECIAL EX 04/08/2017 AMBER ESCALANTE N Ot 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, LYMPH NODE 04/08/2017 AMBER ESCALANTE N Ot Z01.89 ENCOUNTER FOR OTHER SPECIFIED SPECIAL EX 04/11/2017 AMBER ESCALANTE N Ot 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, LYMPH NODE 04/11/2017 AMBER ESCALANTE N Ot I10 ESSENTIAL (PRIMARY) HYPERTENSION 04/11/2017 AVAAMBER IBRAHIM N Ot I89.0 LYMPHEDEMA, NOT ELSEWHERE CLASSIFIED 04/11/2017 AMBER ESCALANTE N Ot K21.9 GASTRO-ESOPHAGEAL REFLUX DISEASE WITHOUT 04/11/2017 AVA BOBPOPPY N Ot Z79.899 OTHER RELEASE AND TECHNICAL RECORDS CLERK (CURRENT) DRUG THERAPY 05/02/2017 AMBER ESCALANTE N Ot 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, LYMPH NODE 05/02/2017 AMBER ESCALANTE N Ot I10 ESSENTIAL (PRIMARY) HYPERTENSION 05/02/2017 AVAAMBER IBRAHIM N Ot I89.0 LYMPHEDEMA, NOT ELSEWHERE CLASSIFIED 05/02/2017 AVAAMBER IBRAHIM N Ot K21.9 GASTRO-ESOPHAGEAL REFLUX DISEASE WITHOUT 05/02/2017 AVAJACLYNAN N Ot Z79.899 OTHER RELEASE AND TECHNICAL RECORDS CLERK (CURRENT) DRUG THERAPY 05/27/2017 AMBER ESCALANTE N Ot 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, LYMPH NODE 05/27/2017 AVAAMBER N Ot I10 ESSENTIAL (PRIMARY) HYPERTENSION 05/27/2017 AVA BOBAN N Ot I89.0 LYMPHEDEMA, NOT ELSEWHERE CLASSIFIED 05/27/2017 AVAAMBER N Ot K21.9 GASTRO-ESOPHAGEAL REFLUX DISEASE WITHOUT 05/27/2017 AVA, BOBAN N Ot Z79.899 OTHER HALF-WAY (CURRENT) DRUG THERAPY 06/25/2017 AMBER ESCALANTE N Ot 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, LYMPH NODE 06/25/2017 AMBER ESCALANTE N Ot I10 ESSENTIAL (PRIMARY) HYPERTENSION 06/25/2017 AMBER ESCALANTE N Ot I89.0 LYMPHEDEMA, NOT ELSEWHERE CLASSIFIED 06/25/2017 AMBER ESCALANTE Ot K21.9 GASTRO-ESOPHAGEAL REFLUX DISEASE WITHOUT 06/25/2017 AMBER ESCALANTE N Ot Z79.899 OTHER HALF-WAY (CURRENT) DRUG THERAPY 06/26/2017 AMBER ESCALANTE Ot 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, LYMPH NODE 06/26/2017 AMBER ESCALANTE N Ot I10 ESSENTIAL (PRIMARY) HYPERTENSION 06/26/2017 AMBER ESCALANTE N Ot I89.0 LYMPHEDEMA, NOT ELSEWHERE CLASSIFIED 06/26/2017 AMBER ESCALANTE Ot K21.9 GASTRO-ESOPHAGEAL REFLUX DISEASE WITHOUT 06/26/2017 AMBER ESCALANTE Ot Z79.899 OTHER HALF-WAY (CURRENT) DRUG THERAPY 07/19/2017 ANGEL KATHLEEN, Shelley RODRIGUES Ot R42 DIZZINESS AND GIDDINESS 07/20/2017 EJ GASPAR DO Ot 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 07/20/2017 STEPHANIE KATHLEEN, JULIO Rosa Ot 789.30 ABDOMINAL/PELVIC SWELLING,MASS/LUMP UNSP 07/20/2017 STEPHANIE KATHLEEN, JULIO Rosa Ot V72.84 EXAM PRE-OPERATIVE NOS 07/20/2017 AMBER ESCALANTE N Ot 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 SOLID ORGAN U 07/20/2017 AMBER ESCALANTE N Ot 397.0 TRICUSPID VALVE DISEASE 07/20/2017 AMBER ESCALANTE N Ot 424.0 MITRAL VALVE DISORDER 07/20/2017 NICOLE FRANCIS S MANAGER STRATEGIC Ot 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 SOLID ORGAN U 07/20/2017 NICOLE FRANCIS S MANAGER STRATEGIC Ot 272.0 PURE HYPERCHOLESTEROLEM 07/20/2017 NICOLE FRANCIS S MANAGER STRATEGIC Ot 401.9 HYPERTENSION NOS 07/20/2017 NICOLE FRANCIS S MANAGER STRATEGIC Ot 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 07/20/2017 NICOLE FRANCIS S MANAGER STRATEGIC Ot 530.81 ESOPHAGEAL REFLUX 07/20/2017 KELVIN FRANCISMONTRELL S MANAGER STRATEGIC Ot V58.69 OTH MED,LT,CURRENT USE 07/20/2017 STEPHANIE KATHLEEN, JULIO M Ot 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 SOLID ORGAN U 07/20/2017 STEPHANIE KATHLEEN, JULIO Rosa Ot V72.84 EXAM PRE-OPERATIVE NOS 07/20/2017 KELVIN FRANCISMONTRELL S MANAGER STRATEGIC Ot 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 SOLID ORGAN U 07/20/2017 NICOLE FRANCIS S MANAGER STRATEGIC Ot 272.0 PURE HYPERCHOLESTEROLEM 07/20/2017 KELVIN FRANCISAH S MANAGER STRATEGIC Ot 401.9 HYPERTENSION NOS 07/20/2017 FRANCISKELVINAH S MANAGER STRATEGIC Ot 530.81 ESOPHAGEAL REFLUX 07/20/2017 KELVIN FRANCISAH S MANAGER STRATEGIC Ot V58.69 OTH MED,LT,CURRENT USE 07/20/2017 PENNY NICOLE S MANAGER STRATEGIC Ot 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 SOLID ORGAN U 07/20/2017 NICOLE FRANCIS S MANAGER STRATEGIC Ot 782.1 NONSPECIF SKIN ERUPT NEC 07/20/2017 PENNY NICOLE S MANAGER STRATEGIC Ot 782.3 EDEMA 07/20/2017 KELVIN FRANCISMONTRELL S MANAGER STRATEGIC Ot V58.69 OTH MED,LT,CURRENT USE 07/20/2017 AMBER ESCALANTE Ot 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 SOLID ORGAN U 07/20/2017 PENNY NICOLE S MANAGER STRATEGIC Ot 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 SOLID ORGAN U 07/20/2017 NICOLE FRANCIS S MANAGER STRATEGIC Ot 272.0 PURE HYPERCHOLESTEROLEM 07/20/2017 KELVIN FRANCISAH S MANAGER STRATEGIC Ot 401.9 HYPERTENSION NOS 07/20/2017 FRANCISKELVINAH S MANAGER STRATEGIC Ot 530.81 ESOPHAGEAL REFLUX 07/20/2017 FRANCISKELVINAH S MANAGER STRATEGIC Ot V58.69 OTH MED,LT,CURRENT USE 07/20/2017 FRANCISKELVINAH S MANAGER STRATEGIC Ot 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 SOLID ORGAN U 07/20/2017 NICOLE FRANCIS S MANAGER STRATEGIC Ot V58.69 OTH MED,LT,CURRENT USE 07/20/2017 AMBER ESCALANTE Ot 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 SOLID ORGAN U 07/20/2017 AVA, BOBAN N Ot V58.81 FIT/ADJ VASCULAR CATHETER 07/20/2017 AVA BOBAN N Ot 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 SOLID ORGAN U 07/20/2017 AVA, BOBAN N Ot V58.81 FIT/ADJ VASCULAR CATHETER 07/20/2017 FRANCIS, NICOLE S MANAGER STRATEGIC Ot 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 SOLID ORGAN U 07/20/2017 NICOLE FRANCIS S MANAGER STRATEGIC Ot 272.0 PURE HYPERCHOLESTEROLEM 07/20/2017 NICOLE FRANCIS S MANAGER STRATEGIC Ot 401.9 HYPERTENSION NOS 07/20/2017 NICOLE FRANCIS S MANAGER STRATEGIC Ot 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 07/20/2017 NICOLE FRANCIS S MANAGER STRATEGIC Ot 530.81 ESOPHAGEAL REFLUX 07/20/2017 NICOLE FRANCIS S MANAGER STRATEGIC Ot 785.6 ENLARGEMENT LYMPH NODES 07/20/2017 NICOLE FRANCIS S MANAGER STRATEGIC Ot 792.1 ABN FIND-STOOL CONTENTS 07/20/2017 NICOLE FRANCIS S MANAGER STRATEGIC Ot V58.69 OTH MED,LT,CURRENT USE 07/20/2017 AVA BOBAN N Ot 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 SOLID ORGAN U 07/20/2017 AMBER ESCALANTE N Ot 272.0 PURE HYPERCHOLESTEROLEM 07/20/2017 AVA BOBAN N Ot 401.9 HYPERTENSION NOS 07/20/2017 AVA BOBAN N Ot 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 07/20/2017 AVA BOBAN N Ot 530.81 ESOPHAGEAL REFLUX 07/20/2017 AVA BOBAN N Ot 785.6 ENLARGEMENT LYMPH NODES 07/20/2017 AVA BOBAN N Ot 792.1 ABN FIND-STOOL CONTENTS 07/20/2017 AVA BOBAN N Ot V58.69 OTH MED,LT,CURRENT USE 07/20/2017 AVA BOBAN N Ot 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, UNSPE 07/20/2017 AVA, BOBAN N Ot Z45.2 ENCOUNTER FOR ADJUSTMENT AND MANAGEMENT 07/20/2017 NICOLE FRANCIS S MANAGER STRATEGIC Ot 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, UNSPE 07/20/2017 NICOLE FRANCIS S MANAGER STRATEGIC Ot E78.0 PURE HYPERCHOLESTEROLEMIA 07/20/2017 NICOLE FRANCIS MANAGER STRATEGIC Ot I 10 ESSENTIAL (PRIMARY) HYPERTENSION 07/20/2017 NICOLE FRANCIS MANAGER STRATEGIC Ot I89.0 LYMPHEDEMA, NOT ELSEWHERE CLASSIFIED 07/20/2017 NICOLE FRANCIS MANAGER STRATEGIC Ot K21.9 GASTRO-ESOPHAGEAL REFLUX DISEASE WITHOUT 07/20/2017 NICOLE FRANCIS S MANAGER STRATEGIC Ot Z79.899 OTHER RELEASE AND TECHNICAL RECORDS CLERK (CURRENT) DRUG THERAPY 07/20/2017 AVA BOBAN N Ot 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, UNSPE 07/20/2017 AVA BOBAN N Ot Z45.2 ENCOUNTER FOR ADJUSTMENT AND MANAGEMENT 07/20/2017 AVA, BOBAN N Ot 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, UNSPE 07/20/2017 AVA, BOBAN N Ot E78.0 PURE HYPERCHOLESTEROLEMIA 07/20/2017 AVA, BOBAN N Ot I10 ESSENTIAL (PRIMARY) HYPERTENSION 07/20/2017 AVA, BOBAN N Ot I89.0 LYMPHEDEMA, NOT ELSEWHERE CLASSIFIED 07/20/2017 AVA BOBAN N Ot K21.9 GASTRO-ESOPHAGEAL REFLUX DISEASE WITHOUT 07/20/2017 AVA, BOBAN N Ot Z45.2 ENCOUNTER FOR ADJUSTMENT AND MANAGEMENT 07/20/2017 AVA, BOBAN N Ot Z79.899 OTHER RELEASE AND TECHNICAL RECORDS CLERK (CURRENT) DRUG THERAPY 07/20/2017 AVA BOBAN N Ot 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, UNSPE 07/20/2017 AVA, BOBAN N Ot E78.0 PURE HYPERCHOLESTEROLEMIA 07/20/2017 AVA, BOBAN N Ot I10 ESSENTIAL (PRIMARY) HYPERTENSION 07/20/2017 AVA, BOBAN N Ot I89.0 LYMPHEDEMA, NOT ELSEWHERE CLASSIFIED 07/20/2017 AVA, BOBAN N Ot K21.9 GASTRO-ESOPHAGEAL REFLUX DISEASE WITHOUT 07/20/2017 AVA, BOBAN N Ot Z79.899 OTHER HALF-WAY (CURRENT) DRUG THERAPY 07/20/2017 NICOLE FRANCIS MANAGER STRATEGIC Ot 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, UNSPE 07/20/2017 NICOLE FRANCIS MANAGER STRATEGIC Ot E78.0 PURE HYPERCHOLESTEROLEMIA 07/20/2017 NICOLE FRANCIS MANAGER STRATEGIC Ot I 10 ESSENTIAL (PRIMARY) HYPERTENSION 07/20/2017 NICOLE FRANCIS MANAGER STRATEGIC Ot I89.0 LYMPHEDEMA, NOT ELSEWHERE CLASSIFIED 07/20/2017 NICOLE FRANCIS MANAGER STRATEGIC Ot K21.9 GASTRO-ESOPHAGEAL REFLUX DISEASE WITHOUT 07/20/2017 FRANCISNICOLE Matthew MANAGER STRATEGIC Ot Z45.2 ENCOUNTER FOR ADJUSTMENT AND MANAGEMENT 07/20/2017 FRANCISNICOLE Matthew MANAGER STRATEGIC Ot Z79.899 OTHER HALF-WAY (CURRENT) DRUG THERAPY 07/20/2017 AVA, JACLYNAN N Ot 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, UNSPE 07/20/2017 AVA, BOBAN N Ot Z45.2 ENCOUNTER FOR ADJUSTMENT AND MANAGEMENT 07/20/2017 NICOLE FRANCIS MANAGER STRATEGIC Ot 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, UNSPE 07/20/2017 NICOLE FRANCIS MANAGER STRATEGIC Ot E78.0 PURE HYPERCHOLESTEROLEMIA 07/20/2017 FRANCISNICOLE Matthew MANAGER STRATEGIC Ot I 10 ESSENTIAL (PRIMARY) HYPERTENSION 07/20/2017 FRANCISNICOLE Matthew MANAGER STRATEGIC Ot Z79.899 OTHER RELEASE AND TECHNICAL RECORDS CLERK (CURRENT) DRUG THERAPY 07/20/2017 AVA, BOBAN N Ot 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, UNSPE 07/20/2017 AVA BOBAN N Ot E78.0 PURE HYPERCHOLESTEROLEMIA 07/20/2017 AVA, BOBAN N Ot I10 ESSENTIAL (PRIMARY) HYPERTENSION 07/20/2017 AVA, BOBAN N Ot Z79.899 OTHER HALF-WAY (CURRENT) DRUG THERAPY 07/20/2017 AVA, BOBAN N Ot 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, UNSPE 07/20/2017 AVAJACLYNAN N Ot Z45.2 ENCOUNTER FOR ADJUSTMENT AND MANAGEMENT 07/20/2017 AVA BOBAN N Ot 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, LYMPH NODE 07/20/2017 AVA, BOBAN N Ot 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, UNSPE 07/20/2017 AVA BOBAN N Ot Z45.2 ENCOUNTER FOR ADJUSTMENT AND MANAGEMENT 07/20/2017 AVA BOBAN N Ot 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, LYMPH NODE 07/20/2017 AVA BOBAN N Ot I10 ESSENTIAL (PRIMARY) HYPERTENSION 07/20/2017 AVA BOBAN N Ot I89.0 LYMPHEDEMA, NOT ELSEWHERE CLASSIFIED 07/20/2017 AVAAMBER N Ot K21.9 GASTRO-ESOPHAGEAL REFLUX DISEASE WITHOUT 07/20/2017 AVAAMBER N Ot Z79.899 OTHER RELEASE AND TECHNICAL RECORDS CLERK (CURRENT) DRUG THERAPY 07/20/2017 AMBER ESCALANTE N Ot 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, LYMPH NODE 07/20/2017 AVA BOBAN N Ot I10 ESSENTIAL (PRIMARY) HYPERTENSION 07/20/2017 AVAAMBER N Ot I89.0 LYMPHEDEMA, NOT ELSEWHERE CLASSIFIED 07/20/2017 AVAAMBER N Ot K21.9 GASTRO-ESOPHAGEAL REFLUX DISEASE WITHOUT 07/20/2017 AVA, BOBAN N Ot Z45.2 ENCOUNTER FOR ADJUSTMENT AND MANAGEMENT 07/20/2017 AVAAMBER N Ot Z79.899 OTHER HALF-WAY (CURRENT) DRUG THERAPY 07/20/2017 AVAAMBER IBRAHIM N Ot 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, LYMPH NODE 07/20/2017 AVA BOBPOPPY N Ot I10 ESSENTIAL (PRIMARY) HYPERTENSION 07/20/2017 AVAAMBER N Ot I89.0 LYMPHEDEMA, NOT ELSEWHERE CLASSIFIED 07/20/2017 AVAAMBER N Ot K21.9 GASTRO-ESOPHAGEAL REFLUX DISEASE WITHOUT 07/20/2017 AVAAMBER N Ot Z45.2 ENCOUNTER FOR ADJUSTMENT AND MANAGEMENT 07/20/2017 AVAAMBER N Ot Z79.899 OTHER RELEASE AND TECHNICAL RECORDS CLERK (CURRENT) DRUG THERAPY 07/20/2017 AVAAMBER IBRAHIM N Ot 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, LYMPH NODE 07/20/2017 AVAAMBER N Ot Z45.2 ENCOUNTER FOR ADJUSTMENT AND MANAGEMENT 07/20/2017 AVA BOBAN N Ot 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, LYMPH NODE 07/20/2017 AVA BOBAN N Ot I10 ESSENTIAL (PRIMARY) HYPERTENSION 07/20/2017 AVAJACLYNAN N Ot I89.0 LYMPHEDEMA, NOT ELSEWHERE CLASSIFIED 07/20/2017 AVA BOBAN N Ot K21.9 GASTRO-ESOPHAGEAL REFLUX DISEASE WITHOUT 07/20/2017 AVA, BOBAN N Ot Z45.2 ENCOUNTER FOR ADJUSTMENT AND MANAGEMENT 07/20/2017 AVA BOBAN N Ot Z79.899 OTHER RELEASE AND TECHNICAL RECORDS CLERK (CURRENT) DRUG THERAPY 07/20/2017 AMBER ESCALANTE N Ot 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, LYMPH NODE 07/20/2017 AMBER ESCALANTE N Ot Z01.89 ENCOUNTER FOR OTHER SPECIFIED SPECIAL EX 07/20/2017 AMBER ESCALANTE Ot 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, LYMPH NODE 07/20/2017 AMBER ESCALANTE N Ot I10 ESSENTIAL (PRIMARY) HYPERTENSION 07/20/2017 AMBER ESCALANTE N Ot I89.0 LYMPHEDEMA, NOT ELSEWHERE CLASSIFIED 07/20/2017 AMBER ESCALANTE N Ot K21.9 GASTRO-ESOPHAGEAL REFLUX DISEASE WITHOUT 07/20/2017 AMBER ESCALANTE N Ot Z79.899 OTHER HALF-WAY (CURRENT) DRUG THERAPY 07/20/2017 ANGEL KATHLEEN, M RAVI Ot R42 DIZZINESS AND GIDDINESS 07/23/2017 ANGEL KATHLEEN, M RAVI Ot I10 ESSENTIAL (PRIMARY) HYPERTENSION 07/23/2017 ANGEL KATHLEEN, M RAVI Ot R42 DIZZINESS AND GIDDINESS 07/23/2017 ANGEL KATHLEEN, M RAVI Ot R55 SYNCOPE AND COLLAPSE 07/31/2017 AMBER ESCALANTE N Ot 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, LYMPH NODE 07/31/2017 AMBER ESCALANTE N Ot I10 ESSENTIAL (PRIMARY) HYPERTENSION 07/31/2017 AMBER ESCALANTE N Ot I89.0 LYMPHEDEMA, NOT ELSEWHERE CLASSIFIED 07/31/2017 AMBER ESCALANTE N Ot K21.9 GASTRO-ESOPHAGEAL REFLUX DISEASE WITHOUT 07/31/2017 AMBER ESCALANTE N Ot Z79.899 OTHER RELEASE AND TECHNICAL RECORDS CLERK (CURRENT) DRUG THERAPY 08/07/2017 AMBER ESCALANTE N Ot 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, LYMPH NODE 08/07/2017 AMBER ESCALANTE N Ot I10 ESSENTIAL (PRIMARY) HYPERTENSION 08/07/2017 AMBER ESCALANTE N Ot I89.0 LYMPHEDEMA, NOT ELSEWHERE CLASSIFIED 08/07/2017 AMBER ESCALANTE N Ot K21.9 GASTRO-ESOPHAGEAL REFLUX DISEASE WITHOUT 08/07/2017 AMBER ESCALANTE N Ot Z79.899 OTHER HALF-WAY (CURRENT) DRUG THERAPY 08/13/2017 ANGEL KATHLEEN, M RAVI Ot I10 ESSENTIAL (PRIMARY) HYPERTENSION 08/13/2017 ANGEL KATHLEEN, M RAVI Ot R42 DIZZINESS AND GIDDINESS 08/13/2017 Shelley ORTIZ MD Ot R55 SYNCOPE AND COLLAPSE 08/16/2017 ANGEL KATHLEEN, Shelley RODRIGUES Ot I10 ESSENTIAL (PRIMARY) HYPERTENSION 08/16/2017 ANGEL KATHLEEN, Shelley RODRIGUES Ot R42 DIZZINESS AND GIDDINESS 08/16/2017 ANGEL KATHLEEN, Shelley RODRIGUES Ot R55 SYNCOPE AND COLLAPSE 09/09/2017 Shelley ORTIZ MD Ot I10 ESSENTIAL (PRIMARY) HYPERTENSION 09/09/2017 ANGEL KATHLEEN, M RAVI Ot R42 DIZZINESS AND GIDDINESS 09/09/2017 ANGEL KATHLEEN, Shelley RODRIGUES Ot R55 SYNCOPE AND COLLAPSE 09/11/2017 ANGEL KATHLEEN, Shelley RODRIGUES Ot I10 ESSENTIAL (PRIMARY) HYPERTENSION 09/11/2017 ANGEL KATHLEEN, Shelley RODRIGUES Ot R42 DIZZINESS AND GIDDINESS 09/11/2017 Shelley ORTIZ MD Ot R55 SYNCOPE AND COLLAPSE 09/18/2017 AMBER ESCALANTE Ot C82.90 FOLLICULAR LYMPHOMA, UNSPECIFIED, UNSPEC 09/18/2017 AMBER ESCALANTE Ot C82.90 FOLLICULAR LYMPHOMA, UNSPECIFIED, UNSPEC 09/23/2017 AMBER ESCALANTE Ot 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 SOLID ORGAN U 09/24/2017 AMBER ESCALANTE Ot 397.0 TRICUSPID VALVE DISEASE 09/24/2017 AMBER ESCALANTE N Ot 424.0 MITRAL VALVE DISORDER 09/24/2017 NICOLE FRANCIS S MANAGER STRATEGIC Ot 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 SOLID ORGAN U 09/24/2017 NICOLE FRANCIS S MANAGER STRATEGIC Ot 272.0 PURE HYPERCHOLESTEROLEM 09/24/2017 NICOLE FRANCIS S MANAGER STRATEGIC Ot 401.9 HYPERTENSION NOS 09/24/2017 NICOLE FRANCIS S MANAGER STRATEGIC Ot 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 09/24/2017 NICOLE FRANCIS S MANAGER STRATEGIC Ot 530.81 ESOPHAGEAL REFLUX 09/24/2017 NICOLE FRANCIS S MANAGER STRATEGIC Ot V58.69 OTH MED,LT,CURRENT USE 09/24/2017 STEPHANIE KATHLEEN, JULIO Rosa Ot 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 SOLID ORGAN U 09/24/2017 STEPHANIE KATHLEEN, JULIO Rosa Ot V72.84 EXAM PRE-OPERATIVE NOS 09/24/2017 NICOLE FRANCIS S MANAGER STRATEGIC Ot 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 SOLID ORGAN U 09/24/2017 NICOLE FRANCIS S MANAGER STRATEGIC Ot 272.0 PURE HYPERCHOLESTEROLEM 09/24/2017 NICOLE FRANCIS S MANAGER STRATEGIC Ot 401.9 HYPERTENSION NOS 09/24/2017 NICOLE FRANCIS S MANAGER STRATEGIC Ot 530.81 ESOPHAGEAL REFLUX 09/24/2017 NICOLE FRANCIS S MANAGER STRATEGIC Ot V58.69 OTH MED,LT,CURRENT USE 09/24/2017 NICOLE FRANCIS S MANAGER STRATEGIC Ot 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 SOLID ORGAN U 09/24/2017 NICOLE FRANCIS S MANAGER STRATEGIC Ot 782.1 NONSPECIF SKIN ERUPT NEC 09/24/2017 NICOLE FRANCIS S MANAGER STRATEGIC Ot 782.3 EDEMA 09/24/2017 NICOLE FRANCIS S MANAGER STRATEGIC Ot V58.69 OTH MED,LT,CURRENT USE 09/24/2017 AMBER ESCALANTE N Ot 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 SOLID ORGAN U 09/24/2017 NICOLE FRANCIS S MANAGER STRATEGIC Ot 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 SOLID ORGAN U 09/24/2017 NICOLE FRANCIS S MANAGER STRATEGIC Ot 272.0 PURE HYPERCHOLESTEROLEM 09/24/2017 FRANCIS, HILAH S MANAGER STRATEGIC Ot 401.9 HYPERTENSION NOS 09/24/2017 NICOLE FRANCIS S MANAGER STRATEGIC Ot 530.81 ESOPHAGEAL REFLUX 09/24/2017 NICOLE FRANCIS MANAGER STRATEGIC Ot V58.69 OTH MED,LT,CURRENT USE 09/24/2017 NICOLE FRANCIS MANAGER STRATEGIC Ot 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 SOLID ORGAN U 09/24/2017 NICOLE FRANCIS MANAGER STRATEGIC Ot V58.69 OTH MED,LT,CURRENT USE 09/24/2017 AMBER ESCALANTE N Ot 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 SOLID ORGAN U 09/24/2017 AVA BOBAN N Ot V58.81 FIT/ADJ VASCULAR CATHETER 09/24/2017 AVA, BOBAN N Ot 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 SOLID ORGAN U 09/24/2017 AVA, BOBAN N Ot V58.81 FIT/ADJ VASCULAR CATHETER 09/24/2017 NICOLE FRANCIS MANAGER STRATEGIC Ot 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 SOLID ORGAN U 09/24/2017 FRANCISNICOLE Matthew S MANAGER STRATEGIC Ot 272.0 PURE HYPERCHOLESTEROLEM 09/24/2017 FRANCISNICOLE Matthew S MANAGER STRATEGIC Ot 401.9 HYPERTENSION NOS 09/24/2017 FRANCISNICOLE Matthew S MANAGER STRATEGIC Ot 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 09/24/2017 FRANCISNICOLE Matthew S MANAGER STRATEGIC Ot 530.81 ESOPHAGEAL REFLUX 09/24/2017 FRANCISNICOLE Matthew S MANAGER STRATEGIC Ot 785.6 ENLARGEMENT LYMPH NODES 09/24/2017 FRANCISNICOLE Matthew S MANAGER STRATEGIC Ot 792.1 ABN FIND-STOOL CONTENTS 09/24/2017 FRANCISNICOLE Matthew MANAGER STRATEGIC Ot V58.69 OTH MED,LT,CURRENT USE 09/24/2017 JACLYN ESCALANTEAN N Ot 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 SOLID ORGAN U 09/24/2017 AVA BOBAN N Ot 272.0 PURE HYPERCHOLESTEROLEM 09/24/2017 AVA, BOBAN N Ot 401.9 HYPERTENSION NOS 09/24/2017 AVA, BOBAN N Ot 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 09/24/2017 AVA BOBAN N Ot 530.81 ESOPHAGEAL REFLUX 09/24/2017 AVA BOBAN N Ot 785.6 ENLARGEMENT LYMPH NODES 09/24/2017 AVA BOBAN N Ot 792.1 ABN FIND-STOOL CONTENTS 09/24/2017 AMBER ESCALANTE Ot V58.69 OTH MED,LT,CURRENT USE 09/24/2017 AMBER ESCALANTE N Ot 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899 OTHER RELEASE AND TECHNICAL RECORDS CLERK (CURRENT) DRUG THERAPY 09/24/2017 AMBER ESCALANTE N Ot 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, UNSPE 09/24/2017 AMBER ESCALANTE N Ot Z45.2 ENCOUNTER FOR ADJUSTMENT AND MANAGEMENT 09/24/2017 AMBER ESCALANTE N Ot 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, UNSPE 09/24/2017 AMBER ESCALANTE N Ot E78.0 PURE HYPERCHOLESTEROLEMIA 09/24/2017 AVA, BOBAN N Ot I10 ESSENTIAL (PRIMARY) HYPERTENSION 09/24/2017 AVA, BOBAN N Ot I89.0 LYMPHEDEMA, NOT ELSEWHERE CLASSIFIED 09/24/2017 AMBER ESCALANTE N Ot K21.9 GASTRO-ESOPHAGEAL REFLUX DISEASE WITHOUT 09/24/2017 AVA BOBAN N Ot Z45.2 ENCOUNTER FOR ADJUSTMENT AND MANAGEMENT 09/24/2017 AVAJACLYN IBRAHIMAN N Ot Z79.899 OTHER RELEASE AND TECHNICAL RECORDS CLERK (CURRENT) DRUG THERAPY 09/24/2017 JACLYN ESCALANTEAN N Ot 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, UNSPE 09/24/2017 AVA BOBAN N Ot E78.0 PURE HYPERCHOLESTEROLEMIA 09/24/2017 AVA, BOBAN N Ot I10 ESSENTIAL (PRIMARY) HYPERTENSION 09/24/2017 AVA BOBAN N Ot I89.0 LYMPHEDEMA, NOT ELSEWHERE CLASSIFIED 09/24/2017 AMBER ESCALANTE N Ot K21.9 GASTRO-ESOPHAGEAL REFLUX DISEASE WITHOUT 09/24/2017 AVA, AMBER N Ot Z79.899 OTHER HALF-WAY (CURRENT) DRUG THERAPY 09/24/2017 NICOLE FRANCIS MANAGER STRATEGIC Ot 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, UNSPE 09/24/2017 NICOLE FRANCIS MANAGER STRATEGIC Ot E78.0 PURE HYPERCHOLESTEROLEMIA 09/24/2017 NICOLE FRANCIS MANAGER STRATEGIC Ot I 10 ESSENTIAL (PRIMARY) HYPERTENSION 09/24/2017 NICOLE FRANCIS MANAGER STRATEGIC Ot I89.0 LYMPHEDEMA, NOT ELSEWHERE CLASSIFIED 09/24/2017 NICOLE FRANCIS MANAGER STRATEGIC Ot K21.9 GASTRO-ESOPHAGEAL REFLUX DISEASE WITHOUT 09/24/2017 FRANCISNICOLE Matthew MANAGER STRATEGIC Ot Z45.2 ENCOUNTER FOR ADJUSTMENT AND MANAGEMENT 09/24/2017 FRANCISNICOLE Matthew MANAGER STRATEGIC Ot Z79.899 OTHER HALF-WAY (CURRENT) DRUG THERAPY 09/24/2017 AVA JACLYNPOPPY N Ot 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, UNSPE 09/24/2017 AVAAMBER IBRAHIM N Ot Z45.2 ENCOUNTER FOR ADJUSTMENT AND MANAGEMENT 09/24/2017 NICOLE FRANCIS S MANAGER STRATEGIC Ot 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, UNSPE 09/24/2017 NICOLE FRANCIS MANAGER STRATEGIC Ot E78.0 PURE HYPERCHOLESTEROLEMIA 09/24/2017 NICOLE FRANCIS MANAGER STRATEGIC Ot I 10 ESSENTIAL (PRIMARY) HYPERTENSION 09/24/2017 FRANCISNICOLE Matthew S MANAGER STRATEGIC Ot Z79.899 OTHER RELEASE AND TECHNICAL RECORDS CLERK (CURRENT) DRUG THERAPY 09/24/2017 AVA JACLYNAN N Ot 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, UNSPE 09/24/2017 AVAAMBER N Ot E78.0 PURE HYPERCHOLESTEROLEMIA 09/24/2017 AVAAMBER N Ot I10 ESSENTIAL (PRIMARY) HYPERTENSION 09/24/2017 AVAJACLYNAN N Ot Z79.899 OTHER RELEASE AND TECHNICAL RECORDS CLERK (CURRENT) DRUG THERAPY 09/24/2017 AVA JACLYNAN N Ot 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, UNSPE 09/24/2017 AMBER ESCALANTE N Ot Z45.2 ENCOUNTER FOR ADJUSTMENT AND MANAGEMENT 09/24/2017 AMBER ESCALANTE N Ot 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, LYMPH NODE 09/24/2017 AMBER ESCALANTE N Ot 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, UNSPE 09/24/2017 AMBER ESCALANTE N Ot Z45.2 ENCOUNTER FOR ADJUSTMENT AND MANAGEMENT 09/24/2017 AMBER ESCALANTE N Ot 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, LYMPH NODE 09/24/2017 AMBER ESCALANTE N Ot I10 ESSENTIAL (PRIMARY) HYPERTENSION 09/24/2017 AVAAMBER N Ot I89.0 LYMPHEDEMA, NOT ELSEWHERE CLASSIFIED 09/24/2017 AVAAMBER IBRAHIM N Ot K21.9 GASTRO-ESOPHAGEAL REFLUX DISEASE WITHOUT 09/24/2017 AVAAMBER N Ot Z79.899 OTHER HALF-WAY (CURRENT) DRUG THERAPY 09/24/2017 AMBER ESCALANTE N Ot 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, LYMPH NODE 09/24/2017 AVA, BOBAN N Ot I10 ESSENTIAL (PRIMARY) HYPERTENSION 09/24/2017 AVAAMBER IBRAHIM N Ot I89.0 LYMPHEDEMA, NOT ELSEWHERE CLASSIFIED 09/24/2017 AMBER ESCALANTE N Ot K21.9 GASTRO-ESOPHAGEAL REFLUX DISEASE WITHOUT 09/24/2017 AVAAMBER IBRAHIM N Ot Z45.2 ENCOUNTER FOR ADJUSTMENT AND MANAGEMENT 09/24/2017 AVAAMBER IBRAHIM N Ot Z79.899 OTHER RELEASE AND TECHNICAL RECORDS CLERK (CURRENT) DRUG THERAPY 09/24/2017 AMBER ESCALANTE N Ot 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, LYMPH NODE 09/24/2017 AVAAMBER IBRAHIM N Ot I10 ESSENTIAL (PRIMARY) HYPERTENSION 09/24/2017 AVAAMBER N Ot I89.0 LYMPHEDEMA, NOT ELSEWHERE CLASSIFIED 09/24/2017 AVAAMBER IBRAHIM N Ot K21.9 GASTRO-ESOPHAGEAL REFLUX DISEASE WITHOUT 09/24/2017 AVAAMBER N Ot Z45.2 ENCOUNTER FOR ADJUSTMENT AND MANAGEMENT 09/24/2017 AVAAMBER IBRAHIM N Ot Z79.899 OTHER RELEASE AND TECHNICAL RECORDS CLERK (CURRENT) DRUG THERAPY 09/24/2017 AMBER ESCALANTE N Ot 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, LYMPH NODE 09/24/2017 AVAAMBER IBRAHIM N Ot Z45.2 ENCOUNTER FOR ADJUSTMENT AND MANAGEMENT 09/24/2017 AVAAMBER IBRAHIM N Ot 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, LYMPH NODE 09/24/2017 AMBER ESCALANTE N Ot I10 ESSENTIAL (PRIMARY) HYPERTENSION 09/24/2017 AMBER ESCALANTE N Ot I89.0 LYMPHEDEMA, NOT ELSEWHERE CLASSIFIED 09/24/2017 AMBER ESCALANTE N Ot K21.9 GASTRO-ESOPHAGEAL REFLUX DISEASE WITHOUT 09/24/2017 AMBER ESCALANTE N Ot Z45.2 ENCOUNTER FOR ADJUSTMENT AND MANAGEMENT 09/24/2017 AMBER ESCALANTE N Ot Z79.899 OTHER RELEASE AND TECHNICAL RECORDS CLERK (CURRENT) DRUG THERAPY 09/24/2017 AMBER ESCALANTE N Ot 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, LYMPH NODE 09/24/2017 AMBER ESCALANTE N Ot Z01.89 ENCOUNTER FOR OTHER SPECIFIED SPECIAL EX 09/24/2017 AMBER ESCALANTE N Ot C82.90 FOLLICULAR LYMPHOMA, UNSPECIFIED, UNSPEC 09/24/2017 ANGEL KATHLEEN, M ARVI Ot R42 DIZZINESS AND GIDDINESS 09/24/2017 ANGEL KATHLEEN, M RAVI Ot I10 ESSENTIAL (PRIMARY) HYPERTENSION 09/24/2017 ANGEL KATHLEEN, M RAVI Ot R42 DIZZINESS AND GIDDINESS 09/24/2017 ANGEL KATHLEEN, M RAVI Ot R55 SYNCOPE AND COLLAPSE 09/24/2017 ANGEL KATHLEEN, M RAVI Ot I10 ESSENTIAL (PRIMARY) HYPERTENSION 09/24/2017 ANGEL KATHLEEN, M RAVI Ot R42 DIZZINESS AND GIDDINESS 09/24/2017 ANGEL KATHLEEN, M RAVI Ot R55 SYNCOPE AND COLLAPSE 09/24/2017 AMBER ESCALANTE N Ot 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, LYMPH NODE 09/24/2017 AMBER ESCALANTE N Ot I10 ESSENTIAL (PRIMARY) HYPERTENSION 09/24/2017 AMBER ESCALANTE N Ot I89.0 LYMPHEDEMA, NOT ELSEWHERE CLASSIFIED 09/24/2017 AMBER ESCALANTE N Ot K21.9 GASTRO-ESOPHAGEAL REFLUX DISEASE WITHOUT 09/24/2017 AMBER ESCALANTE N Ot Z79.899 OTHER HALF-WAY (CURRENT) DRUG THERAPY 09/25/2017 AMBER ESCALANTE N Ot 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, LYMPH NODE 09/25/2017 AMBER ESCALANTE N Ot I10 ESSENTIAL (PRIMARY) HYPERTENSION 09/25/2017 AMBER ESCALANTE N Ot I89.0 LYMPHEDEMA, NOT ELSEWHERE CLASSIFIED 09/25/2017 AMBER ESCALANTE N Ot K21.9 GASTRO-ESOPHAGEAL REFLUX DISEASE WITHOUT 09/25/2017 AVAAMBER IBRAHIM N Ot Z79.899 OTHER HALF-WAY (CURRENT) DRUG THERAPY 10/09/2017 AMBER ESCALANTE N Ot C82.90 FOLLICULAR LYMPHOMA, UNSPECIFIED, UNSPEC 10/14/2017 AMBER ESCALANTE N Ot C82.90 FOLLICULAR LYMPHOMA, UNSPECIFIED, UNSPEC 10/20/2017 ANGEL KATHLEEN, M RAVI Ot I10 ESSENTIAL (PRIMARY) HYPERTENSION 10/20/2017 ANGEL KATHLEEN, M RAVI Ot R42 DIZZINESS AND GIDDINESS 10/20/2017 ANGEL KATHLEEN, M RAVI Ot R55 SYNCOPE AND COLLAPSE 10/21/2017 ANGEL KATHLEEN, M RAVI Ot I10 ESSENTIAL (PRIMARY) HYPERTENSION 10/21/2017 ANGEL KATHLEEN, M RAVI Ot R42 DIZZINESS AND GIDDINESS 10/21/2017 ANGEL KATHLEEN, M RAVI Ot R55 SYNCOPE AND COLLAPSE 2017 AMBER ESCALANTE N Ot 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, LYMPH NODE 2017 AVAAMBER IBRAHIM N Ot I10 ESSENTIAL (PRIMARY) HYPERTENSION 2017 AMBER ESCALANTE N Ot I89.0 LYMPHEDEMA, NOT ELSEWHERE CLASSIFIED 2017 AMBER ESCALANTE N Ot K21.9 GASTRO-ESOPHAGEAL REFLUX DISEASE WITHOUT 2017 AVAAMBER IBRAHIM N Ot Z45.2 ENCOUNTER FOR ADJUSTMENT AND MANAGEMENT 2017 AMBER ESCALANTE N Ot Z79.899 OTHER HALF-WAY (CURRENT) DRUG THERAPY 11/08/2017 AMBER ESCALANTE N Ot 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, LYMPH NODE 11/08/2017 AVAAMBER IBRAHIM N Ot I10 ESSENTIAL (PRIMARY) HYPERTENSION 11/08/2017 AVAAMBER IBRAHIM N Ot I89.0 LYMPHEDEMA, NOT ELSEWHERE CLASSIFIED 11/08/2017 AMBER ESCALANTE N Ot K21.9 GASTRO-ESOPHAGEAL REFLUX DISEASE WITHOUT 11/08/2017 AVAAMBER IBRAHIM N Ot Z45.2 ENCOUNTER FOR ADJUSTMENT AND MANAGEMENT 11/08/2017 AMBER ESCALANTE N Ot Z79.899 OTHER HALF-WAY (CURRENT) DRUG THERAPY 12/23/2017 AMBER ESCALANTE N Ot 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, LYMPH NODE 12/23/2017 AMBER ESCALANTE N Ot I10 ESSENTIAL (PRIMARY) HYPERTENSION 12/23/2017 AMBER ESCALANTE N Ot I89.0 LYMPHEDEMA, NOT ELSEWHERE CLASSIFIED 12/23/2017 AMBER ESCALANTE N Ot K21.9 GASTRO-ESOPHAGEAL REFLUX DISEASE WITHOUT 12/23/2017 AMBER ESCALANTE N Ot Z45.2 ENCOUNTER FOR ADJUSTMENT AND MANAGEMENT 12/23/2017 AMBER ESCALANTE N Ot Z79.899 OTHER HALF-WAY (CURRENT) DRUG THERAPY 01/10/2018 AMBER ESCALANTE N Ot 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, LYMPH NODE 01/10/2018 AMBER ESCALANTE N Ot I10 ESSENTIAL (PRIMARY) HYPERTENSION 01/10/2018 AMBER ESCALANTE N Ot I89.0 LYMPHEDEMA, NOT ELSEWHERE CLASSIFIED 01/10/2018 AMBER ESCALANTE N Ot K21.9 GASTRO-ESOPHAGEAL REFLUX DISEASE WITHOUT 01/10/2018 AMBER ESCALANTE N Ot Z79.899 OTHER RELEASE AND TECHNICAL RECORDS CLERK (CURRENT) DRUG THERAPY 02/10/2018 AMBER ESCALANTE N Ot 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, LYMPH NODE 02/10/2018 ABMER ESCALANTE N Ot I10 ESSENTIAL (PRIMARY) HYPERTENSION 02/10/2018 AMBER ESCALANTE N Ot I89.0 LYMPHEDEMA, NOT ELSEWHERE CLASSIFIED 02/10/2018 AMBER ESCALANTE N Ot K21.9 GASTRO-ESOPHAGEAL REFLUX DISEASE WITHOUT 02/10/2018 AMBER ESCALANTE N Ot Z79.899 OTHER HALF-WAY (CURRENT) DRUG THERAPY 03/26/2018 DIDIER DO, REVA B Ot Z01.8 18 ENCOUNTER FOR OTHER PREPROCEDURAL EXAMIN 03/31/2018 DIDIER DO, REVA B Ot C85.9 0 NON-[place] LYMPHOMA, UNSPECIFIED, UNSPE 03/31/2018 DIDIER DO, REVA B Ot D12.4 BENIGN NEOPLASM OF DESCENDING COLON 03/31/2018 DIDIER DO, REVA B Ot D12.8 BENIGN NEOPLASM OF RECTUM 03/31/2018 DIDIER BURKS REVA B Ot E78.0 0 PURE HYPERCHOLESTEROLEMIA, UNSPECIFIED 03/31/2018 DIDIER DO, REVA B Ot I12.9 HYPERTENSIVE CHRONIC KIDNEY DISEASE W ST 03/31/2018 DELMAN DO, REVA B Ot K21.9 GASTRO-ESOPHAGEAL REFLUX DISEASE WITHOUT 03/31/2018 DELMAN DO, REVA B Ot K57.3 0 DVRTCLOS OF LG INT W/O PERFORATION OR AB 03/31/2018 DELMAN DO, REVA B Ot K64.8 OTHER HEMORRHOIDS 03/31/2018 DELMAN DO, REVA B Ot M79.7 FIBROMYALGIA 03/31/2018 DELMAN DO, REVA B Ot N18.3 CHRONIC KIDNEY DISEASE, STAGE 3 (MODERAT 03/31/2018 DELMAN DO, REVA B Ot Z79.8 99 OTHER HALF-WAY (CURRENT) DRUG THERAPY 04/02/2018 NICOLE FRANCISP Ot 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, LYMPH NODE 04/08/2018 DELMAN DO, REVA B Ot C85.9 0 NON-[place] LYMPHOMA, UNSPECIFIED, UNSPE 04/08/2018 DELMAN DO, REVA B Ot D12.4 BENIGN NEOPLASM OF DESCENDING COLON 04/08/2018 DELMAN DO, REVA B Ot D12.8 BENIGN NEOPLASM OF RECTUM 04/08/2018 DELMAN DO, REVA B Ot E78.0 0 PURE HYPERCHOLESTEROLEMIA, UNSPECIFIED 04/08/2018 DELMAN DO, REVA B Ot I12.9 HYPERTENSIVE CHRONIC KIDNEY DISEASE W ST 04/08/2018 DELMAN DO, REVA B Ot K21.9 GASTRO-ESOPHAGEAL REFLUX DISEASE WITHOUT 04/08/2018 DELMAN DO, REVA B Ot K57.3 0 DVRTCLOS OF LG INT W/O PERFORATION OR AB 04/08/2018 DELMAN DO, REVA B Ot K64.8 OTHER HEMORRHOIDS 04/08/2018 DELMAN DO, REVA B Ot M79.7 FIBROMYALGIA 04/08/2018 DELMAN DO, REVA B Ot N18.3 CHRONIC KIDNEY DISEASE, STAGE 3 (MODERAT 04/08/2018 DELMAN DO, REVA B Ot Z79.8 99 OTHER RELEASE AND TECHNICAL RECORDS CLERK (CURRENT) DRUG THERAPY 04/09/2018 NICOLE FRANCISP Ot 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, LYMPH NODE 04/11/2018 NICOLE FRANCIS Ot 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, LYMPH NODE 05/09/2018 AVA, BOBAN N Ot 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, LYMPH NODE 05/09/2018 AVA, BOBPOPPY N Ot I10 ESSENTIAL (PRIMARY) HYPERTENSION 05/09/2018 AVA, BOBAN N Ot I89.0 LYMPHEDEMA, NOT ELSEWHERE CLASSIFIED 05/09/2018 AMBER ESCALANTE N Ot K21.9 GASTRO-ESOPHAGEAL REFLUX DISEASE WITHOUT 05/09/2018 AVAJACLYN IBRAHIMAN N Ot Z79.899 OTHER HALF-WAY (CURRENT) DRUG THERAPY 06/04/2018 AMBER ESCALANTE N Ot 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, LYMPH NODE 06/04/2018 AVAAMBER IBRAHIM N Ot I10 ESSENTIAL (PRIMARY) HYPERTENSION 06/04/2018 AVA, BOBAN N Ot I89.0 LYMPHEDEMA, NOT ELSEWHERE CLASSIFIED 06/04/2018 AVAAMBER IBRAHIM N Ot K21.9 GASTRO-ESOPHAGEAL REFLUX DISEASE WITHOUT 06/04/2018 AVA BOBAN N Ot Z79.899 OTHER HALF-WAY (CURRENT) DRUG THERAPY 06/08/2018 AMBER ESCALANTE N Ot 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, LYMPH NODE 06/08/2018 AVA, BOBPOPPY N Ot I10 ESSENTIAL (PRIMARY) HYPERTENSION 06/08/2018 AVAAMBER IBRAHIM N Ot I89.0 LYMPHEDEMA, NOT ELSEWHERE CLASSIFIED 06/08/2018 AMBER ESCALANTE N Ot K21.9 GASTRO-ESOPHAGEAL REFLUX DISEASE WITHOUT 06/08/2018 AVA BOBAN N Ot Z79.899 OTHER HALF-WAY (CURRENT) DRUG THERAPY 06/15/2018 AMBER ESCALANTE N Ot 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, LYMPH NODE 06/15/2018 AVA, BOBAN N Ot I10 ESSENTIAL (PRIMARY) HYPERTENSION 06/15/2018 AVAJACLYNAN N Ot I89.0 LYMPHEDEMA, NOT ELSEWHERE CLASSIFIED 06/15/2018 AVA, BOBAN N Ot K21.9 GASTRO-ESOPHAGEAL REFLUX DISEASE WITHOUT 06/15/2018 AVA BOBAN N Ot Z79.899 OTHER RELEASE AND TECHNICAL RECORDS CLERK (CURRENT) DRUG THERAPY 08/28/2018 AMBER ESCALANTE N Ot 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, LYMPH NODE 08/28/2018 AVA, BOBAN N Ot I10 ESSENTIAL (PRIMARY) HYPERTENSION 08/28/2018 AVA BOBAN N Ot K21.9 GASTRO-ESOPHAGEAL REFLUX DISEASE WITHOUT 08/28/2018 AVAJACLYNAN N Ot Z79.899 OTHER HALF-WAY (CURRENT) DRUG THERAPY 09/03/2018 AVAJACLYNAN N Ot 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, LYMPH NODE 09/03/2018 AVA BOBAN N Ot I10 ESSENTIAL (PRIMARY) HYPERTENSION 09/03/2018 AVA BOBAN N Ot K21.9 GASTRO-ESOPHAGEAL REFLUX DISEASE WITHOUT 09/03/2018 AVA, BOBAN N Ot Z79.899 OTHER HALF-WAY (CURRENT) DRUG THERAPY 10/31/2018 AVA BOBAN N Ot 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, LYMPH NODE 10/31/2018 AVA, BOBAN N Ot I10 ESSENTIAL (PRIMARY) HYPERTENSION 10/31/2018 AVA, BOBAN N Ot K21.9 GASTRO-ESOPHAGEAL REFLUX DISEASE WITHOUT 10/31/2018 AVA, BOBAN N Ot Z79.899 OTHER RELEASE AND TECHNICAL RECORDS CLERK (CURRENT) DRUG THERAPY 11/02/2018 AVA, BOBAN N Ot 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, LYMPH NODE 11/02/2018 AVA BOBAN N Ot I10 ESSENTIAL (PRIMARY) HYPERTENSION 11/02/2018 AVA BOBAN N Ot K21.9 GASTRO-ESOPHAGEAL REFLUX DISEASE WITHOUT 11/02/2018 AVA, BOBAN N Ot Z45.2 ENCOUNTER FOR ADJUSTMENT AND MANAGEMENT 11/02/2018 AVA BOBAN N Ot Z79.899 OTHER RELEASE AND TECHNICAL RECORDS CLERK (CURRENT) DRUG THERAPY 11/05/2018 AVA, BOBAN N Ot 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, LYMPH NODE 11/05/2018 AVA BOBAN N Ot I10 ESSENTIAL (PRIMARY) HYPERTENSION 11/05/2018 AVA BOBAN N Ot K21.9 GASTRO-ESOPHAGEAL REFLUX DISEASE WITHOUT 11/05/2018 AVA, BOBAN N Ot Z45.2 ENCOUNTER FOR ADJUSTMENT AND MANAGEMENT 11/05/2018 AVA, BOBAN N Ot Z79.899 OTHER RELEASE AND TECHNICAL RECORDS CLERK (CURRENT) DRUG THERAPY 11/08/2018 AVA BOBAN N Ot 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, LYMPH NODE 11/08/2018 AVA, BOBAN N Ot I10 ESSENTIAL (PRIMARY) HYPERTENSION 11/08/2018 AVA, BOBAN N Ot K21.9 GASTRO-ESOPHAGEAL REFLUX DISEASE WITHOUT 11/08/2018 AVA, BOBAN N Ot Z45.2 ENCOUNTER FOR ADJUSTMENT AND MANAGEMENT 11/08/2018 AMBER ESCALANTE Ot Z79.899 OTHER RELEASE AND TECHNICAL RECORDS CLERK (CURRENT) DRUG THERAPY 03/09/2019 EJ GASPAR DO Ot J42 UNSPECIFIED CHRONIC BRONCHITIS 04/03/2019 AMBER ESCALANTE Ot 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, LYMPH NODE 04/03/2019 AMBER ESCALANTE Ot I10 ESSENTIAL (PRIMARY) HYPERTENSION 04/03/2019 AMBER ESCALANTE Ot K21.9 GASTRO-ESOPHAGEAL REFLUX DISEASE WITHOUT 04/03/2019 AMBER ESCALANTE Ot Z79.899 OTHER RELEASE AND TECHNICAL RECORDS CLERK (CURRENT) DRUG THERAPY 05/07/2019 REVA VELÁSQUEZ DO Ot Z01.8 18 ENCOUNTER FOR OTHER PREPROCEDURAL EXAMIN 05/07/2019 ANGEL KATHLEEN, Shelley RODRIGUES Ot R42 DIZZINESS AND GIDDINESS 05/07/2019 ANGEL KATHLEEN, Shelley RODRIGUES Ot I10 ESSENTIAL (PRIMARY) HYPERTENSION 05/07/2019 ANGEL KATHLEEN, Shelley RODRIGUES Ot R42 DIZZINESS AND GIDDINESS 05/07/2019 ANGEL KATHLEEN, Shelley RODRIGUES Ot R55 SYNCOPE AND COLLAPSE 05/07/2019 REVA VELÁSQUEZ DO B Ot Z01.8 18 ENCOUNTER FOR OTHER PREPROCEDURAL EXAMIN 05/07/2019 REVA VELÁSQUEZ DO Ot Z01.8 18 ENCOUNTER FOR OTHER PREPROCEDURAL EXAMIN 05/08/2019 AMBER ESCALANTE Ot 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, LYMPH NODE 05/08/2019 AMBER ESCALANTE Ot Z79.899 OTHER HALF-WAY (CURRENT) DRUG THERAPY 05/08/2019 AMBER ESCALANTE Ot Z87.19 PERSONAL HISTORY OF OTHER DISEASES OF TH 05/11/2019 STEPHANIE KATHLEEN, JULIO Rosa Ot 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 SOLID ORGAN U 05/11/2019 STEPHANIE KATHLEEN, JULIO Rosa Ot V72.84 EXAM PRE-OPERATIVE NOS 05/11/2019 NICOLE FRANCIS MANAGER STRATEGIC Ot 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 SOLID ORGAN U 05/11/2019 NICOLE FRANCIS MANAGER STRATEGIC Ot 272.0 PURE HYPERCHOLESTEROLEM 05/11/2019 NICOLE FRANCIS MANAGER STRATEGIC Ot 401.9 HYPERTENSION NOS 05/11/2019 NICOLE FRANCIS MANAGER STRATEGIC Ot 530.81 ESOPHAGEAL REFLUX 05/11/2019 NICOLE FRANCIS MANAGER STRATEGIC Ot V58.69 OTH MED,LT,CURRENT USE 05/11/2019 NICOLE FRANCIS MANAGER STRATEGIC Ot 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 SOLID ORGAN U 05/11/2019 NICOLE FRANCIS MANAGER STRATEGIC Ot 782.1 NONSPECIF SKIN ERUPT NEC 05/11/2019 NICOLE FRANCIS MANAGER STRATEGIC Ot 782.3 EDEMA 05/11/2019 NICOLE FRANCIS MANAGER STRATEGIC Ot V58.69 OTH MED,LT,CURRENT USE 05/11/2019 AMBER ESCALANTE N Ot 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 SOLID ORGAN U 05/11/2019 NICOLE FRANCIS MANAGER STRATEGIC Ot 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 SOLID ORGAN U 05/11/2019 NICOLE FRANCIS MANAGER STRATEGIC Ot 272.0 PURE HYPERCHOLESTEROLEM 05/11/2019 NICOLE FRANCIS MANAGER STRATEGIC Ot 401.9 HYPERTENSION NOS 05/11/2019 NICOLE FRANCIS MANAGER STRATEGIC Ot 530.81 ESOPHAGEAL REFLUX 05/11/2019 NICOLE FRANCIS MANAGER STRATEGIC Ot V58.69 OTH MED,LT,CURRENT USE 05/11/2019 NICOLE FRANCIS MANAGER STRATEGIC Ot 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 SOLID ORGAN U 05/11/2019 NICOLE FRANCIS MANAGER STRATEGIC Ot V58.69 OTH MED,LT,CURRENT USE 05/11/2019 AMBER ESCALANTE N Ot 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 SOLID ORGAN U 05/11/2019 AMBER ESCALANTE Ot V58.81 FIT/ADJ VASCULAR CATHETER 05/11/2019 AMBER ESCALANTE N Ot 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 SOLID ORGAN U 05/11/2019 AMBER ESCALANTE N Ot V58.81 FIT/ADJ VASCULAR CATHETER 05/11/2019 NICOLE FRANCIS S MANAGER STRATEGIC Ot 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 SOLID ORGAN U 05/11/2019 NICOLE FRANCIS MANAGER STRATEGIC Ot 272.0 PURE HYPERCHOLESTEROLEM 05/11/2019 NICOLE FRANCIS S MANAGER STRATEGIC Ot 401.9 HYPERTENSION NOS 05/11/2019 NICOLE FRANCIS MANAGER STRATEGIC Ot 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 05/11/2019 FRANCISKELVINMONTRELL Vipul MANAGER STRATEGIC Ot 530.81 ESOPHAGEAL REFLUX 05/11/2019 FRANCISNICOLE MANAGER STRATEGIC Ot 785.6 ENLARGEMENT LYMPH NODES 05/11/2019 FRANCISNICOLE MANAGER STRATEGIC Ot 792.1 ABN FIND-STOOL CONTENTS 05/11/2019 KELVIN FRANCISMONTRELL Vipul MANAGER STRATEGIC Ot V58.69 OTH MED,LT,CURRENT USE 05/11/2019 AVA, BOBAN N Ot 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 SOLID ORGAN U 05/11/2019 AVA, BOBAN N Ot 272.0 PURE HYPERCHOLESTEROLEM 05/11/2019 AVA, BOBAN N Ot 401.9 HYPERTENSION NOS 05/11/2019 AVA, BOBAN N Ot 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 05/11/2019 AVA, BOBAN N Ot 530.81 ESOPHAGEAL REFLUX 05/11/2019 AVA, BOBAN N Ot 785.6 ENLARGEMENT LYMPH NODES 05/11/2019 AVA BOBAN N Ot 792.1 ABN FIND-STOOL CONTENTS 05/11/2019 AVA BOBAN N Ot V58.69 OTH MED,LT,CURRENT USE 05/11/2019 AVA, BOBAN N Ot 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, UNSPE 05/11/2019 AVA BOBAN N Ot Z45.2 ENCOUNTER FOR ADJUSTMENT AND MANAGEMENT 05/11/2019 KELVIN FRANCISMONTRELL Vipul MANAGER STRATEGIC Ot 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, UNSPE 05/11/2019 NICOLE FRANCIS MANAGER STRATEGIC Ot E78.0 PURE HYPERCHOLESTEROLEMIA 05/11/2019 NICOLE FRANCIS MANAGER STRATEGIC Ot I 10 ESSENTIAL (PRIMARY) HYPERTENSION 05/11/2019 NICOLE FRANCIS MANAGER STRATEGIC Ot I89.0 LYMPHEDEMA, NOT ELSEWHERE CLASSIFIED 05/11/2019 NICOLE FRANCIS MANAGER STRATEGIC Ot K21.9 GASTRO-ESOPHAGEAL REFLUX DISEASE WITHOUT 05/11/2019 NICOLE FRANCIS MANAGER STRATEGIC Ot Z79.899 OTHER HALF-WAY (CURRENT) DRUG THERAPY 05/11/2019 AVA BOBAN N Ot 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, UNSPE 05/11/2019 AVA BOBAN N Ot Z45.2 ENCOUNTER FOR ADJUSTMENT AND MANAGEMENT 05/11/2019 AMBER ESCALANTE N Ot 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, UNSPE 05/11/2019 AVAAMBER IBRAHIM N Ot E78.0 PURE HYPERCHOLESTEROLEMIA 05/11/2019 AVA BOBPOPPY N Ot I10 ESSENTIAL (PRIMARY) HYPERTENSION 05/11/2019 AVAAMBER N Ot I89.0 LYMPHEDEMA, NOT ELSEWHERE CLASSIFIED 05/11/2019 AMBER ESCALANTE N Ot K21.9 GASTRO-ESOPHAGEAL REFLUX DISEASE WITHOUT 05/11/2019 AVA BOBPOPPY N Ot Z45.2 ENCOUNTER FOR ADJUSTMENT AND MANAGEMENT 05/11/2019 AVAAMBER IBRAHIM N Ot Z79.899 OTHER HALF-WAY (CURRENT) DRUG THERAPY 05/11/2019 AMBER ESCALANTE N Ot 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, UNSPE 05/11/2019 AVAAMBER IBRAHIM N Ot E78.0 PURE HYPERCHOLESTEROLEMIA 05/11/2019 AVA BOBPOPPY N Ot I10 ESSENTIAL (PRIMARY) HYPERTENSION 05/11/2019 AVAAMBER IBRAHIM N Ot I89.0 LYMPHEDEMA, NOT ELSEWHERE CLASSIFIED 05/11/2019 AVAAMBER IBRAHIM N Ot K21.9 GASTRO-ESOPHAGEAL REFLUX DISEASE WITHOUT 05/11/2019 AVAAMBER N Ot Z79.899 OTHER RELEASE AND TECHNICAL RECORDS CLERK (CURRENT) DRUG THERAPY 05/11/2019 NICOLE FRANCIS MANAGER STRATEGIC Ot 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, UNSPE 05/11/2019 NICOLE FRANCIS MANAGER STRATEGIC Ot E78.0 PURE HYPERCHOLESTEROLEMIA 05/11/2019 NICOLE FRANCIS MANAGER STRATEGIC Ot I 10 ESSENTIAL (PRIMARY) HYPERTENSION 05/11/2019 NICOLE FRANCIS MANAGER STRATEGIC Ot I89.0 LYMPHEDEMA, NOT ELSEWHERE CLASSIFIED 05/11/2019 NICOLE FRANCIS MANAGER STRATEGIC Ot K21.9 GASTRO-ESOPHAGEAL REFLUX DISEASE WITHOUT 05/11/2019 NICOLE FRANCIS MANAGER STRATEGIC Ot Z45.2 ENCOUNTER FOR ADJUSTMENT AND MANAGEMENT 05/11/2019 NICOLE FRANCIS MANAGER STRATEGIC Ot Z79.899 OTHER RELEASE AND TECHNICAL RECORDS CLERK (CURRENT) DRUG THERAPY 05/11/2019 AVAAMBER IBRAHIM N Ot 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, UNSPE 05/11/2019 AVAAMBER IBRAHIM N Ot Z45.2 ENCOUNTER FOR ADJUSTMENT AND MANAGEMENT 05/11/2019 NICOLE FRANCIS MANAGER STRATEGIC Ot 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, UNSPE 05/11/2019 NICOLE FRANCIS MANAGER STRATEGIC Ot E78.0 PURE HYPERCHOLESTEROLEMIA 05/11/2019 NICOLE FRANCIS MANAGER STRATEGIC Ot I 10 ESSENTIAL (PRIMARY) HYPERTENSION 05/11/2019 NICOLE FRANCIS MANAGER STRATEGIC Ot Z79.899 OTHER HALF-WAY (CURRENT) DRUG THERAPY 05/11/2019 AVAAMBER IBRAHIM N Ot 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, UNSPE 05/11/2019 AVA BOBAN N Ot E78.0 PURE HYPERCHOLESTEROLEMIA 05/11/2019 AVA BOBAN N Ot I10 ESSENTIAL (PRIMARY) HYPERTENSION 05/11/2019 AVA BOBAN N Ot Z79.899 OTHER HALF-WAY (CURRENT) DRUG THERAPY 05/11/2019 AVA BOBAN N Ot 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, UNSPE 05/11/2019 AVA, BOBAN N Ot Z45.2 ENCOUNTER FOR ADJUSTMENT AND MANAGEMENT 05/11/2019 AVA BOBAN N Ot 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, LYMPH NODE 05/11/2019 AVA BOBAN N Ot 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, UNSPE 05/11/2019 AVA BOBAN N Ot Z45.2 ENCOUNTER FOR ADJUSTMENT AND MANAGEMENT 05/11/2019 AVA BOBAN N Ot 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, LYMPH NODE 05/11/2019 AVA BOBAN N Ot I10 ESSENTIAL (PRIMARY) HYPERTENSION 05/11/2019 AVA BOBAN N Ot I89.0 LYMPHEDEMA, NOT ELSEWHERE CLASSIFIED 05/11/2019 AVA, BOBAN N Ot K21.9 GASTRO-ESOPHAGEAL REFLUX DISEASE WITHOUT 05/11/2019 AVA, BOBAN N Ot Z79.899 OTHER RELEASE AND TECHNICAL RECORDS CLERK (CURRENT) DRUG THERAPY 05/11/2019 AVA BOBAN N Ot 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, LYMPH NODE 05/11/2019 AVA, BOBAN N Ot I10 ESSENTIAL (PRIMARY) HYPERTENSION 05/11/2019 AVA, BOBAN N Ot I89.0 LYMPHEDEMA, NOT ELSEWHERE CLASSIFIED 05/11/2019 AVA, BOBAN N Ot K21.9 GASTRO-ESOPHAGEAL REFLUX DISEASE WITHOUT 05/11/2019 AVAAMBER N Ot Z45.2 ENCOUNTER FOR ADJUSTMENT AND MANAGEMENT 05/11/2019 AVAAMBER N Ot Z79.899 OTHER HALF-WAY (CURRENT) DRUG THERAPY 05/11/2019 AMBER ESCALANTE N Ot 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, LYMPH NODE 05/11/2019 AVAAMBER IBRAHIM N Ot I10 ESSENTIAL (PRIMARY) HYPERTENSION 05/11/2019 AVAAMBER N Ot I89.0 LYMPHEDEMA, NOT ELSEWHERE CLASSIFIED 05/11/2019 AVAAMBER N Ot K21.9 GASTRO-ESOPHAGEAL REFLUX DISEASE WITHOUT 05/11/2019 AVAAMBER N Ot Z45.2 ENCOUNTER FOR ADJUSTMENT AND MANAGEMENT 05/11/2019 AVAAMBER IBRAHIM N Ot Z79.899 OTHER HALF-WAY (CURRENT) DRUG THERAPY 05/11/2019 AMBER ESCALANTE N Ot 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, LYMPH NODE 05/11/2019 AVAAMBER IBRAHIM N Ot Z45.2 ENCOUNTER FOR ADJUSTMENT AND MANAGEMENT 05/11/2019 AVAAMBER IBRAHIM N Ot 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, LYMPH NODE 05/11/2019 AVAAMBER N Ot I10 ESSENTIAL (PRIMARY) HYPERTENSION 05/11/2019 AVAAMBER N Ot I89.0 LYMPHEDEMA, NOT ELSEWHERE CLASSIFIED 05/11/2019 AMBER ESCALANTE N Ot K21.9 GASTRO-ESOPHAGEAL REFLUX DISEASE WITHOUT 05/11/2019 AVA BOBPOPPY N Ot Z45.2 ENCOUNTER FOR ADJUSTMENT AND MANAGEMENT 05/11/2019 AMBER ESCALANTE N Ot Z79.899 OTHER RELEASE AND TECHNICAL RECORDS CLERK (CURRENT) DRUG THERAPY 05/11/2019 AVAAMBER N Ot 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, LYMPH NODE 05/11/2019 AMBER ESCALANTE N Ot Z01.89 ENCOUNTER FOR OTHER SPECIFIED SPECIAL EX 05/11/2019 AVA BOBAN N Ot C82.90 FOLLICULAR LYMPHOMA, UNSPECIFIED, UNSPEC 05/11/2019 Shelley ORTIZ MD Ot R42 DIZZINESS AND GIDDINESS 05/11/2019 ANGEL KATHLEEN, Shelley RODRIGUES Ot I10 ESSENTIAL (PRIMARY) HYPERTENSION 05/11/2019 Shelley ORTIZ MD Ot R42 DIZZINESS AND GIDDINESS 05/11/2019 KHALID MD, M RAVI Ot R55 SYNCOPE AND COLLAPSE 05/11/2019 Shelley ORTIZ MD Ot I10 ESSENTIAL (PRIMARY) HYPERTENSION 05/11/2019 ANGEL KATHLEEN, Shelley RODRIGUES Ot R42 DIZZINESS AND GIDDINESS 05/11/2019 ANGEL KATHLEEN, Shelley RODRIGUES Ot R55 SYNCOPE AND COLLAPSE 05/11/2019 NICOLE FRANCIS MANAGER STRATEGIC Ot 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, LYMPH NODE 05/11/2019 AVAAMBER Ot 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, LYMPH NODE 05/11/2019 AVAAMBER Ot Z79.899 OTHER RELEASE AND TECHNICAL RECORDS CLERK (CURRENT) DRUG THERAPY 05/11/2019 AMBER ESCALANTE Ot Z87.19 PERSONAL HISTORY OF OTHER DISEASES OF TH 05/11/2019 EJ GASPAR DO Ot J42 UNSPECIFIED CHRONIC BRONCHITIS 05/11/2019 DIDIER BURKS REVA B Ot D12.2 BENIGN NEOPLASM OF ASCENDING COLON 05/11/2019 IDALMIS VELÁSQUEZ DOIC B Ot D12.3 BENIGN NEOPLASM OF TRANSVERSE COLON 05/11/2019 DIDIER BURKS REVA B Ot D12.4 BENIGN NEOPLASM OF DESCENDING COLON 05/11/2019 DIDIER BURKS REVA B Ot D12.8 BENIGN NEOPLASM OF RECTUM 05/11/2019 IDALMIS VELÁSQUEZ DOIC B Ot E78.0 0 PURE HYPERCHOLESTEROLEMIA, UNSPECIFIED 05/11/2019 DIDIER BURKS REVA B Ot E78.5 HYPERLIPIDEMIA, UNSPECIFIED 05/11/2019 DIDIER BURKS REVA B Ot I12.9 HYPERTENSIVE CHRONIC KIDNEY DISEASE W ST 05/11/2019 IDALMIS VELÁSQUEZ DOIC B Ot I27.2 0 PULMONARY HYPERTENSION, UNSPECIFIED 05/11/2019 IDALMIS VELÁSQUEZ DOIC B Ot I49.3 VENTRICULAR PREMATURE DEPOLARIZATION 05/11/2019 IDALMIS VELÁSQUEZ DOIC B Ot K21.9 GASTRO-ESOPHAGEAL REFLUX DISEASE WITHOUT 05/11/2019 IDALMIS VELÁSQUEZ DOIC B Ot K57.3 0 DVRTCLOS OF LG INT W/O PERFORATION OR AB 05/11/2019 IDALMIS VELÁSQUEZ DOIC B Ot K63.8 9 OTHER SPECIFIED DISEASES OF INTESTINE 05/11/2019 REVA VELÁSQUEZ DO B Ot K64.8 OTHER HEMORRHOIDS 05/11/2019 DELMAN DO, REVA B Ot M79.7 FIBROMYALGIA 05/11/2019 ELINAFAHEEM BURKS REVA B Ot N18.3 CHRONIC KIDNEY DISEASE, STAGE 3 (MODERAT 05/11/2019 IDALMIS VELÁSQUEZ DOIC B Ot Z79.8 99 OTHER HALF-WAY (CURRENT) DRUG THERAPY 05/11/2019 DIDIER BURKS REVA B Ot Z82.3 FAMILY HISTORY OF STROKE 05/11/2019 IDALMIS VELÁSQUEZ DOIC B Ot Z82.4 9 FAMILY HX OF ISCHEM HEART DIS AND OTH DI 05/11/2019 IDALMIS VELÁSQUEZ DOIC B Ot Z85.7 2 PERSONAL HISTORY OF NON-HODGKIN LYMPHOMA 05/11/2019 ELINAFAHEEM DO REVA B Ot Z86.0 10 PERSONAL HISTORY OF COLONIC POLYPS 05/11/2019 IDALMIS VELÁSQUEZ DOIC B Ot Z88.5 ALLERGY STATUS TO NARCOTIC AGENT STATUS 05/11/2019 DIDIER BURKS REVA B Ot Z90.8 9 ACQUIRED ABSENCE OF OTHER ORGANS 05/15/2019 DIDIER BURKS REVA B Ot D12.2 BENIGN NEOPLASM OF ASCENDING COLON 05/15/2019 DIDIER BURKS REVA B Ot D12.3 BENIGN NEOPLASM OF TRANSVERSE COLON 05/15/2019 DIDIER BURKS, REVA B Ot D12.4 BENIGN NEOPLASM OF DESCENDING COLON 05/15/2019 DIDIER BURKS REVA B Ot D12.8 BENIGN NEOPLASM OF RECTUM 05/15/2019 DIDIER BURKS REVA B Ot E78.0 0 PURE HYPERCHOLESTEROLEMIA, UNSPECIFIED 05/15/2019 DIDIER BURKS REVA B Ot E78.5 HYPERLIPIDEMIA, UNSPECIFIED 05/15/2019 DIDIER BURKS REVA B Ot I12.9 HYPERTENSIVE CHRONIC KIDNEY DISEASE W ST 05/15/2019 DIDIER BURKS REVA B Ot I27.2 0 PULMONARY HYPERTENSION, UNSPECIFIED 05/15/2019 DIDIER BURKS, REVA B Ot I49.3 VENTRICULAR PREMATURE DEPOLARIZATION 05/15/2019 DIDIER BURKS REVA B Ot K21.9 GASTRO-ESOPHAGEAL REFLUX DISEASE WITHOUT 05/15/2019 DIDIER BURKS REVA B Ot K57.3 0 DVRTCLOS OF LG INT W/O PERFORATION OR AB 05/15/2019 DIDIER BURKS REVA B Ot K63.8 9 OTHER SPECIFIED DISEASES OF INTESTINE 05/15/2019 DIDIER BURKS REVA B Ot K64.8 OTHER HEMORRHOIDS 05/15/2019 DIDIER BURKS, REVA B Ot M79.7 FIBROMYALGIA 05/15/2019 ELINAFAHEEM BURKS REVA B Ot N18.3 CHRONIC KIDNEY DISEASE, STAGE 3 (MODERAT 05/15/2019 ELINAFAHEEM DO REVA B Ot Z79.8 99 OTHER RELEASE AND TECHNICAL RECORDS CLERK (CURRENT) DRUG THERAPY 05/15/2019 ELINARANCHO CUCAMONGA REVA B Ot Z82.3 FAMILY HISTORY OF STROKE 05/15/2019 ELINAFAHEEM DO REVA B Ot Z82.4 9 FAMILY HX OF ISCHEM HEART DIS AND OTH DI 05/15/2019 ELINAFAHEEM DO REVA B Ot Z85.7 2 PERSONAL HISTORY OF NON-HODGKIN LYMPHOMA 05/15/2019 ELINAFAHEEM BURKS REVA B Ot Z88.5 ALLERGY STATUS TO NARCOTIC AGENT STATUS 05/15/2019 ELINAFAHEEM DO REVA B Ot Z90.8 9 ACQUIRED ABSENCE OF OTHER ORGANS 05/17/2019 ELINAFAHEEM DO REVA B Ot D12.2 BENIGN NEOPLASM OF ASCENDING COLON 05/17/2019 ELINARANCHO CUCAMONGA DO REVA B Ot D12.3 BENIGN NEOPLASM OF TRANSVERSE COLON [facility]/17/[facility] D12.4 BENIGN NEOPLASM OF DESCENDING COLON 05/17/2019 [facility] Ot D12.8 BENIGN NEOPLASM OF RECTUM 05/17/2019 ELINARANCHO CUCAMONGA DO REVA B Ot E78.0 0 PURE HYPERCHOLESTEROLEMIA, UNSPECIFIED 05/17/2019 ELINARANCHO CUCAMONGA , REVA B Ot E78.5 HYPERLIPIDEMIA, UNSPECIFIED 05/17/2019 ELINARANCHO CUCAMONGA , REVA B Ot I12.9 HYPERTENSIVE CHRONIC KIDNEY DISEASE W ST 05/17/2019 ELINARANCHO CUCAMONGA DO REVA B Ot I27.2 0 PULMONARY HYPERTENSION, UNSPECIFIED 05/17/2019 ELINARANCHO CUCAMONGA , REVA B Ot I49.3 VENTRICULAR PREMATURE DEPOLARIZATION 05/17/2019 ELINARANCHO CUCAMONGA , REVA B Ot K21.9 GASTRO-ESOPHAGEAL REFLUX DISEASE WITHOUT 05/17/2019 DIDIER BURKS REVA B Ot K57.3 0 DVRTCLOS OF LG INT W/O PERFORATION OR AB 05/17/2019 ELINARANCHO CUCAMONGA DO REVA B Ot K63.8 9 OTHER SPECIFIED DISEASES OF INTESTINE 05/17/2019 DIDIER BURKS REVA B Ot K64.8 OTHER HEMORRHOIDS 05/17/2019 DIDIER BURKS REVA B Ot M79.7 FIBROMYALGIA 05/17/2019 DIDIER BURKS, REVA B Ot N18.3 CHRONIC KIDNEY DISEASE, STAGE 3 (MODERAT 05/17/2019 DIDIER BURKS, REVA B Ot Z79.8 99 OTHER RELEASE AND TECHNICAL RECORDS CLERK (CURRENT) DRUG THERAPY 05/17/2019 ELINARANCHO CUCAMONGA DO, REVA B Ot Z82.3 FAMILY HISTORY OF STROKE 05/17/2019 ELIANRANCHO CUCAMONGA , REVA B Ot Z82.4 9 FAMILY HX OF ISCHEM HEART DIS AND OTH DI 05/17/2019 DIDIER BURKS, REVA B Ot Z85.7 2 PERSONAL HISTORY OF NON-HODGKIN LYMPHOMA 05/17/2019 ELINARANCHO CUCAMONGA , REVA B Ot Z88.5 ALLERGY STATUS TO NARCOTIC AGENT STATUS 05/17/2019 DIDIER BURKS, REVA B Ot Z90.8 9 ACQUIRED ABSENCE OF OTHER ORGANS 05/18/2019 AMBER ESCALANTE Ot 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, LYMPH NODE 05/18/2019 AMBER ESCALANTE Ot Z79.899 OTHER HALF-WAY (CURRENT) DRUG THERAPY 05/18/2019 AMBER ESCALANTE Ot Z87.19 PERSONAL HISTORY OF OTHER DISEASES OF TH 05/20/2019 DIDIER BURKS, REVA B Ot D12.2 BENIGN NEOPLASM OF ASCENDING COLON 05/20/2019 ELINARANCHO CUCAMONGA , REVA B Ot D12.3 BENIGN NEOPLASM OF TRANSVERSE COLON 05/20/2019 [facility] D12.4 BENIGN NEOPLASM OF DESCENDING COLON 05/20/2019 ELINARANCHO CUCAMONGA , REVA B Ot D12.8 BENIGN NEOPLASM OF RECTUM 05/20/2019 ELINARANCHO CUCAMONGA , REVA B Ot E78.0 0 PURE HYPERCHOLESTEROLEMIA, UNSPECIFIED 05/20/2019 [facility] DO, REVA B Ot E78.5 HYPERLIPIDEMIA, UNSPECIFIED 05/20/2019 [facility] DO, REVA B Ot I12.9 HYPERTENSIVE CHRONIC KIDNEY DISEASE W ST 05/20/2019 ELINARANCHO CUCAMONGA , REVA B Ot I27.2 0 PULMONARY HYPERTENSION, UNSPECIFIED 05/20/2019 ELINARANCHO CUCAMONGA DO, REVA B Ot I49.3 VENTRICULAR PREMATURE DEPOLARIZATION 05/20/2019 ELINARANCHO CUCAMONGA , RVEA B Ot K21.9 GASTRO-ESOPHAGEAL REFLUX DISEASE WITHOUT 05/20/2019 DIDIER BURKS, REVA B Ot K57.3 0 DVRTCLOS OF LG INT W/O PERFORATION OR AB 05/20/2019 DIDIER BURKS, REVA B Ot K63.8 9 OTHER SPECIFIED DISEASES OF INTESTINE 05/20/2019 ELINAFAHEEM BURKS, REVA B Ot K64.8 OTHER HEMORRHOIDS 05/20/2019 ELINAFAHEEM BURKS, REVA B Ot M79.7 FIBROMYALGIA 05/20/2019 DIDIER BURKS, REVA B Ot N18.3 CHRONIC KIDNEY DISEASE, STAGE 3 (MODERAT 05/20/2019 ELINAFAHEEM BURKS REVA B Ot Z79.8 99 OTHER RELEASE AND TECHNICAL RECORDS CLERK (CURRENT) DRUG THERAPY 05/20/2019 ELINARANCHO CUCAMONGA REVA B Ot Z82.3 FAMILY HISTORY OF STROKE 05/20/2019 ELINARANCHO CUCAMONGA REVA B Ot Z82.4 9 FAMILY HX OF ISCHEM HEART DIS AND OTH DI 05/20/2019 ELINARANCHO CUCAMONGA REVA B Ot Z85.7 2 PERSONAL HISTORY OF NON-HODGKIN LYMPHOMA 05/20/2019 ELINARANCHO CUCAMONGA REVA B Ot Z86.0 10 PERSONAL HISTORY OF COLONIC POLYPS 05/20/2019 ELINAFAHEEM BURKS REVA B Ot Z88.5 ALLERGY STATUS TO NARCOTIC AGENT STATUS 05/20/2019 ELINARANCHO CUCAMONGA REVA B Ot Z90.8 9 ACQUIRED ABSENCE OF OTHER ORGANS 05/20/2019 ELINARANCHO CUCAMONGA , REVA B Ot D12.2 BENIGN NEOPLASM OF ASCENDING COLON 05/20/2019 ELINARANCHO CUCAMONGA , REVA B Ot D12.3 BENIGN NEOPLASM OF TRANSVERSE COLON 05/20/2019 ELINARANCHO CUCAMONGA , REVA B Ot D12.4 BENIGN NEOPLASM OF DESCENDING COLON 05/20/2019 ELINARANCHO CUCAMONGA , REVA B Ot D12.8 BENIGN NEOPLASM OF RECTUM 05/20/2019 ELINARANCHO CUCAMONGA REVA B Ot E78.0 0 PURE HYPERCHOLESTEROLEMIA, UNSPECIFIED 05/20/2019 ELINARANCHO CUCAMONGA , REVA B Ot E78.5 HYPERLIPIDEMIA, UNSPECIFIED 05/20/2019 ELINARANCHO CUCAMONGA , REVA B Ot I12.9 HYPERTENSIVE CHRONIC KIDNEY DISEASE W ST 05/20/2019 ELINARANCHO CUCAMONGA REVA B Ot I27.2 0 PULMONARY HYPERTENSION, UNSPECIFIED 05/20/2019 ELINARANCHO CUCAMONGA , REVA B Ot I49.3 VENTRICULAR PREMATURE DEPOLARIZATION 05/20/2019 ELINARANCHO CUCAMONGA , REVA B Ot K21.9 GASTRO-ESOPHAGEAL REFLUX DISEASE WITHOUT 05/20/2019 ELINAFAHEEM BURKS, REVA B Ot K57.3 0 DVRTCLOS OF LG INT W/O PERFORATION OR AB 05/20/2019 DIDIER BURKS, REVA B Ot K63.8 9 OTHER SPECIFIED DISEASES OF INTESTINE 05/20/2019 ELINAFAHEEM BURKS, REVA B Ot K64.8 OTHER HEMORRHOIDS 05/20/2019 DIDIER BURKS, REVA B Ot M79.7 FIBROMYALGIA 05/20/2019 DIDIER BURKS, REVA B Ot N18.3 CHRONIC KIDNEY DISEASE, STAGE 3 (MODERAT 05/20/2019 DIDIER BURKS, REVA B Ot Z79.8 99 OTHER HALF-WAY (CURRENT) DRUG THERAPY 05/20/2019 DIDIER BURKS, REVA B Ot Z82.3 FAMILY HISTORY OF STROKE 05/20/2019 DIDIER BURKS REVA B Ot Z82.4 9 FAMILY HX OF ISCHEM HEART DIS AND OTH DI 05/20/2019 DIDIER BURKS, REVA B Ot Z85.7 2 PERSONAL HISTORY OF NON-HODGKIN LYMPHOMA 05/20/2019 DIDIER BURKS REVA B Ot Z86.0 10 PERSONAL HISTORY OF COLONIC POLYPS 05/20/2019 ELINAFAHEEM BURKS REVA B Ot Z88.5 ALLERGY STATUS TO NARCOTIC AGENT STATUS 05/20/2019 DIDIER BURKS, REVA B Ot Z90.8 9 ACQUIRED ABSENCE OF OTHER ORGANS 06/17/2019 SAMEERA ZAIDI ENGINEERING TECHNICAL WRITER Ot S22.22XA FRACTURE OF BODY OF STERNUM, INIT ENCNTR 06/17/2019 SAMEERA ZAIDI ENGINEERING TECHNICAL WRITER Ot W19.XXXA UNSPECIFIED FALL, INITIAL ENCOUNTER 06/24/2019 AMBER ESCALANTE Ot 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, LYMPH NODE 06/24/2019 AMBER ESCALANTE Ot Z79.899 OTHER RELEASE AND TECHNICAL RECORDS CLERK (CURRENT) DRUG THERAPY 06/24/2019 AMBER ESCALANTE Ot Z87.19 PERSONAL HISTORY OF OTHER DISEASES OF TH 07/07/2019 SAMEERA ZAIDI ENGINEERING TECHNICAL WRITER Ot S22.22XA FRACTURE OF BODY OF STERNUM, INIT ENCNTR 07/07/2019 SAMEERA ZAIDI ENGINEERING TECHNICAL WRITER Ot W19.XXXA UNSPECIFIED FALL, INITIAL ENCOUNTER 07/22/2019 AMBER ESCALANTE Ot 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, LYMPH NODE 07/22/2019 AMBER ESCALANTE Ot Z79.899 OTHER RELEASE AND TECHNICAL RECORDS CLERK (CURRENT) DRUG THERAPY 07/22/2019 AVA, BOBAN N Ot Z87.19 PERSONAL HISTORY OF OTHER DISEASES OF TH 09/15/2019 AMBER ESCALANTE N Ot 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, LYMPH NODE 09/15/2019 AMBER ESCALANTE N Ot I12.9 HYPERTENSIVE CHRONIC KIDNEY DISEASE W ST 09/15/2019 AMBER ESCALANTE N Ot N18.3 CHRONIC KIDNEY DISEASE, STAGE 3 (MODERAT 09/15/2019 AMBER ESCALANTE N Ot Z79.899 OTHER HALF-WAY (CURRENT) DRUG THERAPY 09/15/2019 AMBER ESCALANTE N Ot Z87.19 PERSONAL HISTORY OF OTHER DISEASES OF TH 09/15/2019 AMBER ESCALANTE N Ot Z92.21 PERSONAL HISTORY OF ANTINEOPLASTIC CHEMO 09/17/2019 FRANCIS, HILAH S MANAGER STRATEGIC Ot C85.95 NON-HODG LYMPHOMA, UNSP, NODES OF ING RE 09/17/2019 FRANCIS, HILAH S MANAGER STRATEGIC Ot K63.89 OTHER SPECIFIED DISEASES OF INTESTINE 09/17/2019 FRANCIS, HILAH S MANAGER STRATEGIC Ot Z87.828 PERSONAL HISTORY OF OTH (HEALED) PHYSICA 09/17/2019 FRANCIS, HILAH S MANAGER STRATEGIC Ot Z95.828 PRESENCE OF OTHER VASCULAR IMPLANTS AND 09/24/2019 FRANCIS, HILAH S MANAGER STRATEGIC Ot C85.95 NON-HODG LYMPHOMA, UNSP, NODES OF ING RE 09/24/2019 FRANCIS, HILAH S MANAGER STRATEGIC Ot K63.89 OTHER SPECIFIED DISEASES OF INTESTINE 09/24/2019 FRANCIS, HILAH S MANAGER STRATEGIC Ot Z87.828 PERSONAL HISTORY OF OTH (HEALED) PHYSICA 09/24/2019 FRANCIS, HILAH S MANAGER STRATEGIC Ot Z95.828 PRESENCE OF OTHER VASCULAR IMPLANTS AND 10/01/2019 AMBER ESCALANTE N Ot 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, LYMPH NODE 10/01/2019 AMBER ESCALANTE N Ot I12.9 HYPERTENSIVE CHRONIC KIDNEY DISEASE W ST 10/01/2019 AMBER ESCALANTE N Ot N18.3 CHRONIC KIDNEY DISEASE, STAGE 3 (MODERAT 10/01/2019 AMBER ESCALANTE N Ot Z79.899 OTHER RELEASE AND TECHNICAL RECORDS CLERK (CURRENT) DRUG THERAPY 10/01/2019 AMBER ESCALANTE N Ot Z87.19 PERSONAL HISTORY OF OTHER DISEASES OF TH 10/01/2019 AMBER ESCALANTE N Ot Z92.21 PERSONAL HISTORY OF ANTINEOPLASTIC CHEMO 10/08/2019 AMBER ESCALANTE N Ot 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, LYMPH NODE 10/08/2019 AMEBR ESCALANTE N Ot I12.9 HYPERTENSIVE CHRONIC KIDNEY DISEASE W ST 10/08/2019 AMBER ESCALANTE N Ot N18.3 CHRONIC KIDNEY DISEASE, STAGE 3 (MODERAT 10/08/2019 AMBER ESCALANTE N Ot Z79.899 OTHER HALF-WAY (CURRENT) DRUG THERAPY 10/08/2019 AMBER ESCALANTE N Ot Z87.19 PERSONAL HISTORY OF OTHER DISEASES OF TH 10/08/2019 AMBER ESCALANTE N Ot Z92.21 PERSONAL HISTORY OF ANTINEOPLASTIC CHEMO 10/12/2019 FRANCIS, HILAH S MANAGER STRATEGIC Ot C85.95 NON-HODG LYMPHOMA, UNSP, NODES OF ING RE 10/12/2019 FRANCIS, HILAH S MANAGER STRATEGIC Ot K63.89 OTHER SPECIFIED DISEASES OF INTESTINE 10/12/2019 FRANCIS, HILAH S MANAGER STRATEGIC Ot Z87.828 PERSONAL HISTORY OF OTH (HEALED) PHYSICA 10/12/2019 FRANCIS, HILAH S MANAGER STRATEGIC Ot Z95.828 PRESENCE OF OTHER VASCULAR IMPLANTS AND 10/19/2019 FRANCIS, HILAH S MANAGER STRATEGIC Ot C85.95 NON-HODG LYMPHOMA, UNSP, NODES OF ING RE 10/19/2019 FRANCIS, HILAH S MANAGER STRATEGIC Ot K63.89 OTHER SPECIFIED DISEASES OF INTESTINE 10/19/2019 FRANCIS, HILAH S MANAGER STRATEGIC Ot Z87.828 PERSONAL HISTORY OF OTH (HEALED) PHYSICA 10/19/2019 FRANCIS, HILAH S MANAGER STRATEGIC Ot Z95.828 PRESENCE OF OTHER VASCULAR IMPLANTS AND 12/09/2019 AMBER ESCALANTE N Ot 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, LYMPH NODE 12/09/2019 AMBER ESCALANTE N Ot I12.9 HYPERTENSIVE CHRONIC KIDNEY DISEASE W ST 12/09/2019 AMBER ESCALANTE N Ot N18.3 CHRONIC KIDNEY DISEASE, STAGE 3 (MODERAT 12/09/2019 AMBER ESCALANTE N Ot Z79.899 OTHER HALF-WAY (CURRENT) DRUG THERAPY 12/09/2019 AMBER ESCALANTE N Ot Z87.19 PERSONAL HISTORY OF OTHER DISEASES OF TH 12/09/2019 AMBER ESCALANTE N Ot Z92.21 PERSONAL HISTORY OF ANTINEOPLASTIC CHEMO 12/10/2019 AMBER ESCALANTE Ot 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 Results There is no data. Encounters ACCT No. Visit Date/Time Discharge Status Pt. Type Provider Facility Loc./Unit Complaint [id number] 12/16/2019 10:06:00 23:59:59 CLS Outpatient AMBER ESCALANTE N V [facility] ONC [id number] 11/17/2019 13:15:00 00:01:00 DIS Outpatient AMBER ESCALANTE N V [facility] ONC [id number] 09/15/2019 08:11:00 23:59:59 CLS Outpatient NICOLE FRANCIS Via [facility] RAD FS FOLLICULAR LOW GRADE B CELL LYMPHOMA [id number] 05/19/2019 12:50:00 020 00:01:00 DIS Outpatient AMBER ESCALANTE N V [facility] ONC [id number] 06/16/2019 10:31:00 020 23:59:59 CLS Outpatient SAMEERA ZAIDI APRN Via [facility] RAD FS S29.XXA [id number] 05/11/2019 06:59:00 019 23:59:59 CLS Outpatient REVA VELÁSQUEZ DO Via [facility] ENDO SCREENING/HX POLYPS [id number] 05/07/2019 14:06:00 14:37:00 DIS Outpatient REVA VELÁSQUEZ DO Via [facility] PREOP COLONOSCOPY [id number] 02/02/2019 12:13:00 019 23:59:59 CLS Outpatient CHASITY BURKS EJ Racquel Via [facility] RAD FS J42 R05 [id number] 10/09/2018 10:46:00 019 00:01:00 DIS Outpatient AMBER ESCALANTE V ia [facility] ONC [id number] 03/18/2018 09:53:00 019 00:01:00 DIS Outpatient AMBER ESCALANTE V ia [facility] ONC [id number] 03/31/2018 11:46:00 018 14:03:00 DIS Outpatient REVA VELÁSQUEZ DO Via [facility] ENDO HEMOTCHEZIA [id number] 03/26/2018 05:41:00 018 13:58:00 DIS Outpatient REVA VELÁSQUEZ DO Via [facility] PREOP COLONOSCOPY [id number] 03/10/2018 11:15:00 018 23:59:59 CLS Outpatient NICOLE FRANCIS Via [facility] RAD 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 NON H ODGKINS LYMPHOMA [id number] 12/24/2017 09:11:00 018 00:01:00 DIS Outpatient AMBER ESCALANTE V ia [facility] ONC [id number] 11/21/2017 16:05:00 018 23:59:59 CLS Outpatient AMBER ESCALANTE V ia [facility] ONC [id number] 10/21/2017 12:00:00 018 23:59:59 CLS Preadmit Shelley ORTIZ MD Via [facility] CARD R42 DIZZINESS AND GIDDI NESS [id number] 08/15/2017 09:11:00 018 00:01:00 DIS Outpatient Shelley ORTIZ MD Via [facility] CARD R42 DIZZINESS AND GIDDI NESS [id number] 09/17/2017 09:16:00 018 00:01:00 DIS Outpatient AMBER ESCALANTE V [facility] ONC [id number] 09/17/2017 09:46:00 018 23:59:59 CLS Outpatient AMBER ESCALANTE N V [facility] RAD C82.18 HODGKINS LYMPHOM A [id number] 07/22/2017 12:07:00 018 23:59:59 CLS Outpatient Shelley ORTIZ MD Via [facility] CARD R42 DIZZINESS AND GIDDI NESS [id number] 07/22/2017 10:00:00 018 23:59:59 CLS Preadmit Shelley ORTIZ MD Via [facility] RAD R42 DIZZINESS AND GIDDI NESS [id number] 03/26/2017 13:59:00 018 00:01:00 DIS Outpatient AMBER ESCALANTE V [facility] ONC [id number] 01/28/2017 11:46:00 017 00:01:00 DIS Outpatient AMBER ESCALANTE N Lela [facility] ONC [id number] 12/04/2016 12:17:00 017 23:59:59 CLS Outpatient AMBER ESCALANTE V [facility] RAD C82.18 [id number] 12/04/2016 10:41:00 017 23:59:59 CLS Outpatient AMBER ESCALANTE N V [facility] FS [id number] 10/16/2016 11:58:00 017 23:59:59 CLS Outpatient AMBER ESCALANTE N V [facility] FS [id number] 09/04/2016 10:48:00 017 23:59:59 CLS Outpatient AMBER ESCALANTE N V [facility] FS [id number] 07/17/2016 13:46:00 017 23:59:59 CLS Outpatient AVA, BOBAN N V [facility] FS [id number] 06/05/2016 09:24:00 00:01:00 DIS Outpatient AMBER ESCALANTE V [facility] ONC [id number] 06/12/2016 10:15:00 23:59:59 CLS Outpatient AMBER ESCALANTE V [facility] FS [id number] 06/05/2016 09:55:00 23:59:59 CLS Outpatient AVAAMBER IBRAHIM V [facility] RAD FOLLICULAR NON HODGKINS LYMPHOMA [id number] 05/01/2016 12:10:00 23:59:59 CLS Outpatient AMBER ESCALANTE V [facility] FS [id number] 01/23/2016 09:20:00 016 16:14:00 DIS Outpatient AMBER ESCALANTE V [facility] ONC [id number] 02/28/2016 10:24:00 016 23:59:59 CLS Outpatient AMBER ESCALANTE V [facility] FS [id number] 11/28/2015 09:24:00 016 00:01:00 DIS Outpatient AMBER ESCALANTE V [facility] ONC [id number] 12/20/2015 11:21:00 016 23:59:59 CLS Outpatient AMBER ESCALANTE V [facility] FS [id number] 11/28/2015 09:21:00 016 23:59:59 CLS Outpatient NICOLE FRANCIS MANAGER STRATEGIC Via [facility] ONC [id number] 11/08/2015 12:27:00 016 23:59:59 CLS Outpatient AMBER ESCALANTE V [facility] FS [id number] 10/03/2015 09:08:00 016 23:59:59 CLS Outpatient NICOLE FRANCIS MANAGER STRATEGIC Via [facility] ONC [id number] 08/08/2015 10:51:00 016 00:01:00 DIS Outpatient AMBER ESCALANTE V [facility] ONC [id number] 09/06/2015 10:17:00 23:59:59 CLS Outpatient AMBER ESCALANTE V [facility] FS [id number] 07/12/2015 10:13:00 23:59:59 CLS Outpatient AMBER ESCALANTE V [facility] FS [id number] 04/18/2015 09:26:00 00:01:00 DIS Outpatient AMBER ESCALANTE V [facility] ONC [id number] 05/17/2015 10:04:00 23:59:59 CLS Outpatient AMBER ESCALANTE V [facility] FS [id number] 03/22/2015 10:11:00 23:59:59 CLS Outpatient AMBER ESCALANTE V [facility] FS [id number] 02/21/2015 10:46:00 23:59:59 CLS Outpatient NICOLE FRANCISP Via [facility] ONC [id number] 01/27/2015 11:34:00 015 00:01:00 DIS Outpatient AMBER ESCALANTE V [facility] ONC [id number] 11/29/2014 09:56:00 015 00:01:00 DIS Outpatient AMBER ESCALANTE Marissa Lela [facility] ONC [id number] 2014 08:55:00 23:59:59 CLS Outpatient NICOLE FRANCIS MANAGER STRATEGIC Via [facility] ONC [id number] 10/12/2014 15:16:00 23:59:59 CLS Outpatient AMBER ESCALANTE Marissa Lela [facility] FS [id number] 07/05/2014 09:01:00 03/29/2 015 00:01:00 DIS Outpatient AMBER ESCALANTE V [facility] ONC [id number] 08/03/2014 10:23:00 23:59:59 CLS Outpatient AMBER ESCALANTE V [facility] FS [id number] 06/15/2014 10:29:00 23:59:59 CLS Outpatient AMBER ESCALANTE V [facility] FS [id number] 05/10/2014 08:57:00 23:59:59 CLS Outpatient NICOLE FRANCIS S MANAGER STRATEGIC Via [facility] ONC [id number] 04/12/2014 10:06:00 014 00:01:00 DIS Outpatient AMBER ESCALANTE V [facility] ONC [id number] 04/12/2014 10:07:00 23:59:59 CLS Outpatient NICOLE FRANCIS S MANAGER STRATEGIC Via [facility] ONC [id number] 03/02/2014 08:37:00 23:59:59 CLS Outpatient AMBER ESCALANTE V [facility] RAD LYMPHOMA [id number] 01/08/2014 10:35:00 014 00:01:00 DIS Outpatient AMBER ESCALANTE V [facility] ONC [id number] 01/07/2014 09:01:00 014 23:59:59 CLS Outpatient FRANCIS HILAH S MANAGER STRATEGIC Via [facility] ONC [id number] 12/22/2013 09:11:00 23:59:59 CLS Outpatient KELVIN FRANCISAH S MANAGER STRATEGIC Via [facility] ONC [id number] 11/23/2013 10:05:00 014 16:15:00 DIS Outpatient JULIO BROWN MD Via [facility] SDC LYMPHOMA [id number] 11/19/2013 07:24:00 23:59:59 CLS Outpatient STEPHANIE KATHLEEN, JULIO Rosa [facility] PREOP LYMPHOMA [id number] 11/17/2013 09:15:00 014 23:59:59 CLS Outpatient NICOLE FRANCIS Via [facility] ONC [id number] 11/09/2013 10:36:00 014 23:59:59 CLS Outpatient AMBER ESCALANTE V ia [facility] CARD NHL, BEFORE HE STARTS C ARDIO TOXIC CHEMO [id number] 10/26/2013 11:07:00 014 17:30:00 DIS Outpatient STEPHANIE KATHLEEN, JULIO Rosa [facility] SDC SWOLLEN RIGHT LYMPH NOD E [id number] 10/23/2013 16:15:00 23:59:59 CLS Outpatient JULIO BROWN MD Via [facility] PREOP SWOLLEN RIGHT IGUINAL L YMPH NODE [id number] 10/20/2013 07:32:00 014 23:59:59 CLS Outpatient EJ GASPAR DO Via [facility] RAD LYMPHOMA [id number] 01/27/2015 11:35:03 ACT Document Registration
--- NOTE | 2019-12-24 18:44 | ED Upper Extremity ---
General Chief Complaint: Laceration Stated Complaint: LT HAND LAC Nursing Triage Note: Patient reports he was using woodworking tools when his hand slipped and he cut the base of his left 5th finger, near his palm. Does not remember when he last had a tetanus shot. Nursing Sepsis Screen: No Definite Risk Source: patient History of Present Illness Date Seen by Provider: Dec 24, 2019 Time Seen by Provider: 18:00 Initial Comments 84-year-old male presenting with complaints of laceration to his left hand. This was at the base of his pinky finger. He does not remember when his last tetanus shot was. He denies any numbness or tingling in his finger. He has full range of motion of his fingers and hand. He was working with a corn grinder and some [place] when the material kicked back and hit his hand. He states that he immediately clenched his fists to help control the bleeding. He went inside and washed his hand. And then came to the emergency department to have the wound repaired. Allergies and Home Medications Allergies Coded Allergies: No Known Drug Allergies (Unverified , 05/07/19) Patient Home Medication List Home Medication List Reviewed: Yes Review of Systems Constitutional: No chills, No fever EENTM: no symptoms reported Respiratory: no symptoms reported Cardiovascular: no symptoms reported Gastrointestinal: no symptoms reported Genitourinary: no symptoms reported Musculoskeletal: see HPI Skin: see HPI Psychiatric/Neurological: See HPI Past Rijyjkn-Zrhesn-Ztgkjh Hx Past Med/Social Hx: Reviewed Nursing Past Med/Soc Hx Patient Social History Alcohol Use: Denies Use Recreational Drug Use: No Smoking Status: Never a Smoker 2nd Hand Smoke Exposure: No Recent Foreign Travel: No Contact w/Someone Who Travel: No Recent Infectious Disease Expo: No Recent Hopitalizations: No Physical Abuse: No Sexual Abuse: No Mistreated: No Fear: No Immunizations Up To Date Tetanus Booster (TDap): Unknown Date of Pneumonia Vaccine: Mar 26, 2017 Seasonal Allergies Seasonal Allergies: No Past Medical History Surgeries: Yes (hernia x2, knee scope, cataracts,PORT) Appendectomy Respiratory: No Currently Using CPAP: No Currently Using BIPAP: No Cardiac: No Hypertension Neurological: No Sexually Transmitted Disease: No HIV/AIDS: No Genitourinary: No Gastrointestinal: No Musculoskeletal: No Endocrine: No HEENT: Yes (GLASSES) Loss of Vision: Denies Hearing Impairment: Denies Cancer: Yes Lymphoma Did You Recieve Any Treatments: Yes What Type of Treatment Did You: Chemotherapy Psychosocial: No Integumentary: No Blood Disorders: No Adverse Reaction/Blood Tranf: No (N/A) Physical Exam Vital Signs Vital Signs - First Documented 12/24/19 13:45 Temp 36.4 Pulse 58 Resp 18 B/P (MAP) 142/81 (101) Pulse Ox 98 O2 Delivery Room Air Capillary Refill : Less Than 3 Seconds Height, Weight, BMI Height: 6'0.00" Weight: 162lbs. 0.0oz. 73.195166kc; 21.00 BMI Method: General Appearance: WD/WN, no apparent distress Cardiovascular: normal peripheral pulses Hand: Left, laceration (base of pinky finger on left hand), soft tissue tenderness Neurologic/Tendon: normal sensation, normal motor functions, normal tendon functions Neurologic/Psychiatric: customer agent II-XII nml as tested, no motor/sensory deficits, alert, normal mood/affect, oriented x 3 Skin: normal color, warm/dry Procedures/Interventions Wound Location: Upper Extremities (left hand pinky finger at base of the finger) Wound Length (cm): 3.1 Wound's Depth, Shape: contused tissue, sub Q Wound Explored: clean Irrigated w/ Saline (ccs): 200 Anesthesia: 1% Lidocaine Volume Anesthetic (ccs): 8 Suture: Ethlion Suture Size: 4-0 Number of Sutures: 6 Layer Closure?: 1 Sterile Dressing Applied?: Yes Progress After obtaining verbal informed consent the patient's finger was anesthetized with 1% plain lidocaine. Then the wound was irrigated and cleaned with sterile saline and chlorhexidine scrub solution. Then using 4-0 Ethilon a total of 6 simple interrupted sutures were placed to approximate the wound edges. Patient tolerated this well without any immediate complications. Counseled on follow-up and return precautions. Advised to have the stitches out in 10-14 days. Progress/Results/Core Measures Results/Orders My Orders Orders - TOMASZ OATES MD Lidocaine 1% Inj 20 Ml (Xylocaine 1% Inj (12/24/19 13:53) Lidocaine 1% Inj 20 Ml (Xylocaine 1% Inj (12/24/19 14:30) Suture Set At Bedside (12/24/19 14:27) Dipht,Pertuss(Acell),Tet Adult (Boostrix (12/24/19 18:45) Medications Given in ED Current Medications Medications Dose Ordered Sig/Paige Route Start Time Stop Time Status Last Admin Dose Admin Diphtheria/ Tetanus/Acell Pertussis 0.5 ml ONCE ONCE IM 12/24/19 18:45 12/24/19 18:45 DC 12/24/19 18:43 0.5 ML Lidocaine HCl 20 ml ONCE ONCE INJ 12/24/19 14:30 12/24/19 14:31 DC 12/24/19 18:39 20 ML Vital Signs/I&O 12/24/19 12/24/19 13:45 18:45 Temp 36.4 36.4 Pulse 58 58 Resp 18 18 B/P (MAP) 142/81 (101) 142/81 (101) Pulse Ox 98 98 O2 Delivery Room Air Blood Pressure Mean: 101 Progress Progress Note : Progress Note Patient had a lengthy wait due to multiple critical patients in the emergency department. And x-ray was ordered to evaluate for foreign bodies or fractures but the patient refused. He was finally seen and evaluated for his wound. A total of 6 simple interrupted stitches were placed to approximate the wound edges. He was counseled on follow- up and return precautions. He was given a booster on his tetanus Departure Impression Primary Impression: Laceration of left hand without foreign body Qualified Codes: S61.412A - Laceration without foreign body of left hand, initial encounter Disposition: 01 HOME, SELF-CARE Condition: Stable Departure-Patient Inst. Decision time for Depature: 18:41 Referrals: EJ GASPAR DO (PCP/Family) Primary Care Physician Patient Instructions: Laceration Repair With Stitches (DC), Diphtheria and Tetanus Toxoids, and Acellular Pertussis Vaccine, Common Finger Injuries (DC) Add. Discharge Instructions: Keep wound clean and dry for the first 24 hours then may wash with soap and water but do not soak it. Apply antibiotic ointment and bandage 2-3 times a day as needed Check with Dr. Gaspar about having the stitches removed in 10-14 days or be seen sooner if having concerns for infection All discharge instructions reviewed with patient and/or family. Voiced understanding. TOMASZ OATES MD Dec 24, 2019 18:44
[2019-12-24 18:45] VITALS: BP 142/81
[2019-12-24] MEDS ORDERED: TETANUS,DIPTH,PERTUSS P/F (BOOSTRIX) 0.5 ML VIAL IM ONE (18:45)
== END 2019-12-24 18:45 | disposition home or self-care (01) ==
LOC: EDUNIT# 13:24 → ER FS 13:25
DX: S61.412A Laceration without foreign body of left hand, initial encounter (principal); Z23 Encounter for immunization; Z85.72 Personal history of non-Hodgkin lymphomas; W31.2XXA Contact with powered woodworking and forming machines, initial encounter
CPT/HCPCS: 12042; 90715

== ENCOUNTER → 2020-02-22 | Outpatient (CLI) | payer MEDICARE, OTHER ==
[~2020-02-22] MED LIST changes: -LISI1TAB25 PO; +LISI1TAB46 PO
[2020-02-22 11:03] LABS: BASOPHILS % (AUTO) 0 % (0-10); EOSINOPHILS # (AUTO) 0.1 10^3/uL (0.0-0.3); EOSINOPHILS % (AUTO) 1 % (0-10); HEMATOCRIT 37 % (40-54); HEMOGLOBIN 11.9 g/dL (13.3-17.7); LYMPHOCYTES # (AUTO) 1.4 10^3/uL (1.0-4.0); LYMPHOCYTES % (AUTO) 26 % (12-44); MEAN CORPUSCULAR HEMOGLOBIN 30 pg (25-34); MEAN CORPUSCULAR HGB CONC 32 g/dL (32-36); MEAN CORPUSCULAR VOLUME 92 fL (80-99); MEAN PLATELET VOLUME 9.7 fL (9.0-12.2); MONOCYTES # (AUTO) 0.7 10^3/uL (0.0-1.0); MONOCYTES % (AUTO) 12 % (0-12); NEUTROPHILS # (AUTO) 3.2 10^3/uL (1.8-7.8); NEUTROPHILS % (AUTO) 60 % (42-75); PLATELET COUNT 174 10^3/uL (130-400); WHITE BLOOD COUNT 5.3 10^3/uL (4.3-11.0)
[2020-02-22 11:24] LABS: ALBUMIN 4.1 GM/DL (3.2-4.5); BILIRUBIN,TOTAL 0.5 MG/DL (0.1-1.0); CALCIUM 8.5 MG/DL (8.5-10.1); CREATININE SERUM 1.17 MG/DL (0.60-1.30); MAGNESIUM 1.9 MG/DL (1.6-2.4); POTASSIUM 3.5 MMOL/L (3.6-5.0); TOTAL PROTEIN 6.1 GM/DL (6.4-8.2)
== END ==
LOC: LAB 10:36
PROVIDERS: ATTEND Emergency Medicine
DX: C82.90 Follicular lymphoma, unspecified, unspecified site (principal); D50.9 Iron deficiency anemia, unspecified; I10 Essential (primary) hypertension
CPT/HCPCS: 36415; 80053; 83735; 85025

== ENCOUNTER 2020-03-14 12:28 | Outpatient (RCR) | payer MEDICARE, OTHER ==
[2020-03-14 12:49] LABS: BASOPHILS % (AUTO) 0 % (0-10); EOSINOPHILS % (AUTO) 0 % (0-10); HEMATOCRIT 39 % (40-54); HEMOGLOBIN 12.7 g/dL (13.3-17.7); LYMPHOCYTES # (AUTO) 0.8 10^3/uL (1.0-4.0); LYMPHOCYTES % (AUTO) 8 % (12-44); MEAN CORPUSCULAR HEMOGLOBIN 30 pg (25-34); MEAN CORPUSCULAR HGB CONC 32 g/dL (32-36); MEAN CORPUSCULAR VOLUME 93 fL (80-99); MEAN PLATELET VOLUME 9.6 fL (9.0-12.2); MONOCYTES # (AUTO) 0.5 10^3/uL (0.0-1.0); MONOCYTES % (AUTO) 5 % (0-12); NEUTROPHILS # (AUTO) 8.9 10^3/uL (1.8-7.8); NEUTROPHILS % (AUTO) 86 % (42-75); PLATELET COUNT 163 10^3/uL (130-400); WHITE BLOOD COUNT 10.3 10^3/uL (4.3-11.0)
[2020-03-14 13:07] LABS: ALBUMIN 4.1 GM/DL (3.2-4.5); BILIRUBIN,TOTAL 0.5 MG/DL (0.1-1.0); CALCIUM 8.8 MG/DL (8.5-10.1); CREATININE SERUM 1.22 MG/DL (0.60-1.30); POTASSIUM 4.6 MMOL/L (3.6-5.0); TOTAL PROTEIN 6.3 GM/DL (6.4-8.2)
== END 2020-03-15 | disposition home or self-care (01) ==
LOC: ONC 12:28
PROVIDERS: ATTEND Internal Medicine Hematology & Oncology
DX: Z45.2 Encounter for adjustment and management of vascular access device (principal); C82.18 Follicular lymphoma grade II, lymph nodes of multiple sites; I12.9 Hypertensive chronic kidney disease with stage 1 through stage 4 chronic kidney disease, or unspecified chronic kidney disease; N18.30 Chronic kidney disease, stage 3 unspecified; Z92.21 Personal history of antineoplastic chemotherapy; Z87.19 Personal history of other diseases of the digestive system; Z79.899 Other long term (current) drug therapy
CPT/HCPCS: 36591; 80053; 83615; 85025; 96523

== ENCOUNTER → 2020-07-13 | Outpatient (CLI) | payer MEDICARE, OTHER ==
[2020-07-13 11:31] LABS: BASOPHILS % (AUTO) 0 % (0-10); EOSINOPHILS # (AUTO) 0.1 10^3/uL (0.0-0.3); EOSINOPHILS % (AUTO) 1 % (0-10); HEMATOCRIT 38 % (40-54); HEMOGLOBIN 12.3 g/dL (13.3-17.7); LYMPHOCYTES # (AUTO) 0.7 10^3/uL (1.0-4.0); LYMPHOCYTES % (AUTO) 11 % (12-44); MEAN CORPUSCULAR HEMOGLOBIN 30 pg (25-34); MEAN CORPUSCULAR HGB CONC 32 g/dL (32-36); MEAN CORPUSCULAR VOLUME 93 fL (80-99); MEAN PLATELET VOLUME 9.5 fL (9.0-12.2); MONOCYTES # (AUTO) 0.5 10^3/uL (0.0-1.0); MONOCYTES % (AUTO) 9 % (0-12); NEUTROPHILS # (AUTO) 4.9 10^3/uL (1.8-7.8); NEUTROPHILS % (AUTO) 79 % (42-75); PLATELET COUNT 168 10^3/uL (130-400); WHITE BLOOD COUNT 6.2 10^3/uL (4.3-11.0)
[2020-07-13 11:54] LABS: BILIRUBIN,TOTAL 0.4 MG/DL (0.1-1.0); CALCIUM 8.6 MG/DL (8.5-10.1); CREATININE SERUM 1.24 MG/DL (0.60-1.30); POTASSIUM 4.2 MMOL/L (3.6-5.0); TOTAL PROTEIN 6.1 GM/DL (6.4-8.2)
== END ==
LOC: LAB 11:08
PROVIDERS: ATTEND Emergency Medicine
DX: Z79.899 Other long term (current) drug therapy (principal)
CPT/HCPCS: 36415; 80053; 85025

== ENCOUNTER 2020-08-30 12:51 | Outpatient (RCR) | payer MEDICARE, OTHER ==
[2020-08-30 13:14] LABS: BASOPHILS % (AUTO) 0 % (0-10); EOSINOPHILS % (AUTO) 0 % (0-10); HEMATOCRIT 38 % (40-54); HEMOGLOBIN 12.2 g/dL (13.3-17.7); LYMPHOCYTES # (AUTO) 0.6 10^3/uL (1.0-4.0); LYMPHOCYTES % (AUTO) 10 % (12-44); MEAN CORPUSCULAR HEMOGLOBIN 30 pg (25-34); MEAN CORPUSCULAR HGB CONC 32 g/dL (32-36); MEAN CORPUSCULAR VOLUME 94 fL (80-99); MEAN PLATELET VOLUME 9.4 fL (9.0-12.2); MONOCYTES # (AUTO) 0.2 10^3/uL (0.0-1.0); MONOCYTES % (AUTO) 4 % (0-12); NEUTROPHILS # (AUTO) 5.2 10^3/uL (1.8-7.8); NEUTROPHILS % (AUTO) 86 % (42-75); PLATELET COUNT 155 10^3/uL (130-400)
[2020-08-30 13:36] LABS: ALANINE AMINOTRANSFERASE 17 U/L (0-55); ALKALINE PHOSPHATASE 68 U/L (40-136); BILIRUBIN,TOTAL 0.5 MG/DL (0.1-1.0); BUN/CREATININE RATIO 21; CALCIUM 8.4 MG/DL (8.5-10.1); CARBON DIOXIDE 23 MMOL/L (21-32); CHLORIDE 107 MMOL/L (98-107); CREATININE SERUM 1.13 MG/DL (0.60-1.30); GFR ESTIMATED > 60; GLUCOSE 183 MG/DL (70-105); POTASSIUM 4.4 MMOL/L (3.6-5.0); SODIUM 140 MMOL/L (135-145)
== END 2020-10-11 | disposition home or self-care (01) ==
LOC: ONC 12:51
PROVIDERS: ATTEND Internal Medicine Hematology & Oncology
DX: Z45.2 Encounter for adjustment and management of vascular access device (principal); C82.18 Follicular lymphoma grade II, lymph nodes of multiple sites; I12.9 Hypertensive chronic kidney disease with stage 1 through stage 4 chronic kidney disease, or unspecified chronic kidney disease; N18.30 Chronic kidney disease, stage 3 unspecified; Z92.21 Personal history of antineoplastic chemotherapy; Z87.19 Personal history of other diseases of the digestive system; Z79.899 Other long term (current) drug therapy
CPT/HCPCS: 36591; 80053; 83615; 85025; 99213

== ENCOUNTER 2021-02-14 13:07 | Outpatient (RCR) | payer MEDICARE, OTHER ==
[2021-02-14 13:32] LABS: BASOPHILS % (AUTO) 0 % (0-10); EOSINOPHILS # (AUTO) 0.1 10^3/uL (0.0-0.3); EOSINOPHILS % (AUTO) 1 % (0-10); HEMATOCRIT 35 % (40-54); HEMOGLOBIN 11.3 g/dL (13.3-17.7); LYMPHOCYTES # (AUTO) 0.5 10^3/uL (1.0-4.0); LYMPHOCYTES % (AUTO) 5 % (12-44); MEAN CORPUSCULAR HEMOGLOBIN 31 pg (25-34); MEAN CORPUSCULAR HGB CONC 32 g/dL (32-36); MEAN CORPUSCULAR VOLUME 95 fL (80-99); MEAN PLATELET VOLUME 9.4 fL (9.0-12.2); MONOCYTES # (AUTO) 0.5 10^3/uL (0.0-1.0); MONOCYTES % (AUTO) 5 % (0-12); NEUTROPHILS # (AUTO) 8.1 10^3/uL (1.8-7.8); NEUTROPHILS % (AUTO) 88 % (42-75); PLATELET COUNT 174 10^3/uL (130-400); WHITE BLOOD COUNT 9.2 10^3/uL (4.3-11.0)
[2021-02-14 14:02] LABS: ALBUMIN 3.6 GM/DL (3.2-4.5); BILIRUBIN,TOTAL 0.4 MG/DL (0.1-1.0); CALCIUM 8.6 MG/DL (8.5-10.1); CREATININE SERUM 1.4 MG/DL (0.60-1.30); TOTAL PROTEIN 5.5 GM/DL (6.4-8.2)
== END 2021-04-05 | disposition home or self-care (01) ==
LOC: ONC 13:07
PROVIDERS: ATTEND Internal Medicine Hematology & Oncology
DX: Z45.2 Encounter for adjustment and management of vascular access device (principal); C82.18 Follicular lymphoma grade II, lymph nodes of multiple sites; I12.9 Hypertensive chronic kidney disease with stage 1 through stage 4 chronic kidney disease, or unspecified chronic kidney disease; N18.30 Chronic kidney disease, stage 3 unspecified; E78.00 Pure hypercholesterolemia, unspecified; K21.9 Gastro-esophageal reflux disease without esophagitis; Z92.21 Personal history of antineoplastic chemotherapy; Z87.19 Personal history of other diseases of the digestive system; Z79.899 Other long term (current) drug therapy
CPT/HCPCS: 36591; 80053; 83615; 85025; 96523

== ENCOUNTER → 2021-05-23 | Outpatient (CLI) | payer MEDICARE, OTHER | LOC: EDSTATUS 04-06 12:09 → ONC 12:13 | PROVIDERS: ATTEND Internal Medicine Hematology & Oncology | DX: Z45.2 Encounter for adjustment and management of vascular access device (principal); C82.18 Follicular lymphoma grade II, lymph nodes of multiple sites; Q27.33 Arteriovenous malformation of digestive system vessel; I10 Essential (primary) hypertension; E78.00 Pure hypercholesterolemia, unspecified | CPT/HCPCS: 96523 ==

== ENCOUNTER 2021-12-11 16:51 | Emergency (ER) | payer MEDICARE, OTHER ==
[~2021-12-11] VITALS: Ht 182.8 cm; Wt 66.0 kg
[2021-12-11] MEDS ORDERED: IOHEXOL 350 MG/ML 100 ML (OMNIPAQUE 350) VIAL IV ONE (17:30)
[2021-12-11] MEDS ORDERED: NS 100 ML (IVPB) BAG IV ONE (17:30)
[2021-12-11] MEDS ORDERED: HOLD METFORMIN - RECEIVED CONTRAST 20 ML VIAL IV SCH (17:30)
[2021-12-11] MEDS ORDERED: CATHETER FLUSH 10 ML SYR IV PRN (17:30)
[2021-12-11 17:33] LABS: BASOPHILS % (AUTO) 0 % (0-10); EOSINOPHILS # (AUTO) 0.1 10^3/uL (0.0-0.3); EOSINOPHILS % (AUTO) 1 % (0-10); HEMATOCRIT 39 % (40-54); LYMPHOCYTES # (AUTO) 1.1 10^3/uL (1.0-4.0); LYMPHOCYTES % (AUTO) 14 % (12-44); MEAN CORPUSCULAR HEMOGLOBIN 30 pg (25-34); MEAN CORPUSCULAR HGB CONC 33 g/dL (32-36); MEAN CORPUSCULAR VOLUME 90 fL (80-99); MEAN PLATELET VOLUME 9.2 fL (9.0-12.2); MONOCYTES # (AUTO) 0.6 10^3/uL (0.0-1.0); MONOCYTES % (AUTO) 7 % (0-12); NEUTROPHILS % (AUTO) 78 % (42-75); PLATELET COUNT 174 10^3/uL (130-400); WHITE BLOOD COUNT 7.7 10^3/uL (4.3-11.0)
--- NOTE | 2021-12-11 17:54 | Diagnostic Imaging Report ---
INDICATION: Right arm weakness, stroke activation. Frontal chest obtained at 5:50 p.m. and compared to 06/16/2019. FINDINGS: Right-sided Port-A-Cath is unchanged with tip overlying the SVC. Heart is normal in size. The lungs are clear. There is no pneumothorax or pleural fluid. IMPRESSION: No acute process in the chest. Dictated by: Dictated on workstation # [id number]
--- NOTE | 2021-12-11 17:55 | Diagnostic Imaging Report ---
INDICATION: Stroke, right arm numbness. TECHNIQUE: Multiple contiguous axial images were obtained through the brain without the use of intravenous contrast. Auto Exposure Controls were utilized during the CT exam to meet ALARA standards for radiation dose reduction. COMPARISON: There is no prior study for comparison. FINDINGS: There are no extra-axial fluid collections. No intracranial hemorrhage. No intracranial mass or mass effect. No midline shift. The ventricles are normal in size and position. 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 There is no definite acute finding. Calvarial windows are normal. 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 No hemorrhage or mass effect or otherwise acute finding. Dictated by: Dictated on workstation # [id number]
[2021-12-11 18:02] LABS: PROTHROMBIN TIME PATIENT 13.3 SEC (12.2-14.7)
[2021-12-11 18:03] LABS: CARBON DIOXIDE 27 MMOL/L (21-32); CHLORIDE 103 MMOL/L (98-107); POTASSIUM 4.2 MMOL/L (3.6-5.0); SODIUM 142 MMOL/L (135-145)
[2021-12-11 18:04] LABS: ALANINE AMINOTRANSFERASE 16 U/L (0-55); ALBUMIN 4.4 GM/DL (3.2-4.5); ALKALINE PHOSPHATASE 76 U/L (40-136); BILIRUBIN,TOTAL 0.4 MG/DL (0.1-1.0); BUN/CREATININE RATIO 18; CALCIUM 9.5 MG/DL (8.5-10.1); GFR ESTIMATED 54; GLUCOSE 123 MG/DL (70-105); TOTAL PROTEIN 6.3 GM/DL (6.4-8.2)
--- NOTE | 2021-12-11 18:04 | Diagnostic Imaging Report ---
PROCEDURE: CT angiography of the head and CT angiography of the neck with and without contrast. TECHNIQUE: Contiguous noncontrast images were obtained from the skull base through the vertex. After intravenous contrast administration, helical CT angiography of the neck was performed. Source data was reformatted into 3D MIP projections. Delayed post contrast acquisition was also obtained. Auto Exposure Controls were utilized during the CT exam to meet ALARA standards for radiation dose reduction. INDICATION: Right arm weakness. COMPARISON: CT head performed earlier the same day. FINDINGS: There is atherosclerotic plaquing evident within the aortic arch. The origins of the great vessels are not included within the pxowx-on-zvoc. There is a right internal jugular port in place. The vertebral artery origins appear widely patent. The left vertebral artery is dominant and the right is hypoplastic. The common carotid arteries demonstrate no significant stenosis. There is plaquing present at the bilateral carotid bifurcations. Based on NASCET criteria, this appears to result in approximately 60% stenosis of the proximal internal carotid arteries bilaterally. There are no findings of dissection. The vertebral arteries throughout the neck appear patent. Intracranially, there is appropriate flow within the intracranial segments of the internal carotid arteries. There is normal flow within the M1 segment of both middle cerebral arteries. There are no findings of an M2 branch occlusion. The anterior cerebral arteries appear widely patent. Within the posterior circulation, both vertebral arteries are patent. There are patent bilateral posterior inferior cerebellar arteries. The right hypoplastic vertebral artery appears to terminate in the posterior inferior cerebellar artery. The basilar is unremarkable. Both of the superior cerebellar arteries are patent as are both of the posterior cerebral arteries. There are no findings of aneurysm. The dural venous sinuses are patent. Postcontrast imaging demonstrates low-attenuation foci within the deep white matter of the right centrum semiovale. There is no pathologic intracranial enhancement. The soft tissues of the neck demonstrate no acute process. Aerodigestive tract appears appropriately symmetric. The lung apices appear clear. There is no acute cervical spine abnormality. There are advanced multilevel endplate changes and facet arthropathy. IMPRESSION: 1. No CT angiographic evidence of intracranial large vessel occlusion or high-grade intracranial stenosis. 2. No evidence of aneurysm formation. 3. Dural venous sinuses are patent. 4. No pathologic intracranial enhancement 5. There is approximately 60% stenosis at the carotid bifurcation secondary to atherosclerosis. There are no findings of dissection within the neck. 6. Advanced cervical degenerative disc disease. No acute cervical spine abnormality evident. Dictated by: Dictated on workstation # [id number]
[2021-12-11] MEDS ORDERED: methylPREDNISolone 125 MG (Solu-MEDROL) VIAL IVP ONE (18:30)
[2021-12-11] MEDS ORDERED: METH4TAB10 PO (19:01)
--- NOTE | 2021-12-11 19:01 | ED Neurological Problem ---
General Chief Complaint: Neuro-Stroke Like Symptoms Stated Complaint: CANT FEEL R ARM Nursing Triage Note: Patient reports he was suddenly unable to move his right hand 45 minutes prior to coming to the ED. He denies any difference in sensation, states he is unable to move his fingers or use his right hand. Source: patient Exam Limitations: no limitations History of Present Illness Date Seen by Provider: Dec 11, 2021 Time Seen by Provider: 17:11 Initial Comments 86-year-old male patient with history of hypertension and lymphoma complaining of sudden onset of right upper extremity weakness that started about an hour prior to arrival to ER at 1600. Patient denies numbness, headache, speech problem, neurodeficit in other parts of his body. Patient denies history of CVA and the same problem previously. Allergies and Home Medications Allergies Coded Allergies: No Known Drug Allergies (Unverified , 05/07/19) Patient Home Medication List Home Medication List Reviewed: Yes Methylprednisolone (Methylprednisolone Dose Pack) 4 Mg Tab.ds.pk, 4 MG PO UD Prescribed by: Yelena bonilla on 12/11/211900 Review of Systems Review of Systems Constitutional: no symptoms reported Eyes: No Symptoms Reported Ears, Nose, Mouth, Throat: no symptoms reported Respiratory: no symptoms reported Cardiovascular: no symptoms reported Gastrointestinal: no symptoms reported Genitourinary: no symptoms reported Musculoskeletal: see HPI Skin: no symptoms reported Psychiatric/Neurological: See HPI Hematologic/Lymphatic: No Symptoms Reported All Other Systems Reviewed Negative Unless Noted: Yes Past Wiobgim-Safwsg-Blqxxm Hx Patient Social History Tobacco Use?: No Substance use?: No Alcohol Use?: No Pt feels they are or have been: No Immunizations Up To Date Tetanus Booster (TDap): Unknown COVID19 Vaccine Laborer/Grade Check: Moderna Seasonal Allergies Seasonal Allergies: No Past Medical History Surgery/Hospitalization HX: HTN, arthritis Surgeries: Yes (hernia x2, knee scope, cataracts,PORT) Appendectomy Respiratory: No Currently Using CPAP: No Currently Using BIPAP: No Cardiac: No Hypertension Neurological: No Sexually Transmitted Disease: No HIV/AIDS: No Genitourinary: No Gastrointestinal: No Musculoskeletal: No Endocrine: No HEENT: Yes (GLASSES) Loss of Vision: Denies Hearing Impairment: Denies Cancer: Yes Lymphoma Did You Recieve Any Treatments: Yes What Type of Treatment Did You: Chemotherapy Psychosocial: No Integumentary: No Blood Disorders: No Adverse Reaction/Blood Tranf: No (N/A) Physical Exam Vital Signs Vital Signs - First Documented 12/11/21 17:09 Temp 36.2 Pulse 75 Resp 14 B/P (MAP) 132/87 (102) Pulse Ox 100 O2 Delivery Room Air Capillary Refill : Less Than 3 Seconds Height, Weight, BMI Height: 6'0.00" Weight: 162lbs. 0.0oz. [id number]; 19.00 BMI Method: General Appearance: WD/WN, no apparent distress HEENT: PERRL/EOMI, normal ENT inspection, TMs normal, pharynx normal Neck: non-tender, full range of motion, supple, normal inspection Respiratory: chest non-tender, lungs clear, normal breath sounds, no respiratory distress, no accessory muscle use Cardiovascular: regular rate, rhythm, no edema, no gallop, no JVD, no murmur Gastrointestinal: normal bowel sounds, non tender, soft, no organomegaly, no pulsatile mass Back: normal inspection, no CVA tenderness Extremities: normal range of motion, non-tender, normal inspection, no pedal edema Neurologic/Psychiatric: alert, normal mood/affect, oriented x 3, motor weakness, other (Right wrist drop with weakness of right hand) Crainal Nerves: normal hearing, normal speech, PERRL Motor/Sensory: no sensory deficit Skin: normal color, warm/dry Patient had NIH scale of 1 because of mild right upper extremity drop touching the bed that gradually improved and changed to 0. Stroke Onset of Symptoms Date of Onset of Symptoms: Dec 11, 2021 Time of Symptom Onset: 16:00 NIH Stroke Scale Assessment Level of Consciousness: 0=Alert (0), Level of Consciousness-Questions: 0=Answers both month/age (0), LOC Commands: 0=Performs both tasks (0), Visual Garcia: 0=No visual loss (0), Facial Movement (Facial Paresis): 0=Normal symmetrical mnt (0), Motor Function-Arms Right: 1=Drift (1), Motor Function- Arms Left: 0=No drift (0), Motor Function-Legs Right: 0=No drift (0), Motor Function-Legs Left: 0=No drift (0), Limb Ataxia: 0=Absent (0), Sensory: 0=Normal:no loss (0), Best Language: 0=No aphasia (0), Dysarthria: 0=Normal (0), Extinction & Inattention: 0=No abnormality (0), Total: 1 Procedures/Interventions Suture Size: 4-0 Progress/Results/Core Measures Results/Orders Lab Results Laboratory Tests Test 12/11/21 17:20 12/11/21 18:00 Range/Units White Blood Count 7.7 4.3-11.0 10^3/uL Red Blood Count 4.37 4.30-5.52 10^6/uL Hemoglobin 13.0 L 13.3-17.7 g/dL Hematocrit 39 L 40-54 % Mean Corpuscular Volume 90 80-99 fL Mean Corpuscular Hemoglobin 30 25-34 pg Mean Corpuscular Hemoglobin Concent 33 32-36 g/dL Red Cell Distribution Width 14.4 10.0-14.5 % Platelet Count 174 130-400 10^3/uL Mean Platelet Volume 9.2 9.0-12.2 fL Immature Granulocyte % (Auto) 0 % Neutrophils (%) (Auto) 78 H 42-75 % Lymphocytes (%) (Auto) 14 12-44 % Monocytes (%) (Auto) 7 0-12 % Eosinophils (%) (Auto) 1 0-10 % Basophils (%) (Auto) 0 0-10 % Neutrophils # (Auto) 6.0 1.8-7.8 10^3/uL Lymphocytes # (Auto) 1.1 1.0-4.0 10^3/uL Monocytes # (Auto) 0.6 0.0-1.0 10^3/uL Eosinophils # (Auto) 0.1 0.0-0.3 10^3/uL Basophils # (Auto) 0.0 0.0-0.1 10^3/uL Immature Granulocyte # (Auto) 0.0 0.0-0.1 10^3/uL Prothrombin Time 13.3 12.2-14.7 SEC INR Comment 1.0 0.8-1.4 Activated Partial Thromboplast Time 25 24-35 SEC Sodium Level 142 135-145 MMOL/L Potassium Level 4.2 3.6-5.0 MMOL/L Chloride Level 103 98-107 MMOL/L Carbon Dioxide Level 27 21-32 MMOL/L Anion Gap 12 5-14 MMOL/L Blood Urea Nitrogen 24 H 7-18 MG/DL Creatinine 1.30 0.60-1.30 MG/DL Estimat Glomerular Filtration Rate 54 BUN/Creatinine Ratio 18 Glucose Level 123 H 70-105 MG/DL Calcium Level 9.5 8.5-10.1 MG/DL Corrected Calcium 9.2 8.5-10.1 MG/DL Total Bilirubin 0.4 0.1-1.0 MG/DL Aspartate Amino Transf (AST/SGOT) 23 5-34 U/L Alanine Aminotransferase (ALT/SGPT) 16 0-55 U/L Alkaline Phosphatase 76 40-136 U/L Troponin I < 0.30 <0.30 NG/ML Total Protein 6.3 L 6.4-8.2 GM/DL Albumin 4.4 3.2-4.5 GM/DL Glucometer 96 70-110 MG/DL My Orders Orders - YELENA BONILLA MD Cbc With Automated Diff (12/11/21 17:17) Protime With Inr (12/11/21 17:17) Partial Thromboplastin Time (12/11/21 17:17) Comprehensive Metabolic Panel (12/11/21 17:17) Troponin I Fs (12/11/21 17:17) Chest 1 View Ap/Pa Only (12/11/21 17:17) Ekg Tracing (12/11/21 17:17) Accucheck Stat ONCE (12/11/21 17:17) Ed Iv/Invasive Line Start (12/11/21 17:17) Ed Iv/Invasive Line Start (12/11/21 17:17) Vital Signs Stroke Patient Q15M (12/11/21 17:17) Ct Head Wo-R/O Stroke (12/11/21 17:17) Monitor-Rhythm Ecg Trace Only (12/11/21 17:17) Dysphagia Screening Tool Q10MX1 (12/11/21 17:17) Ct Angio Head/Neck (12/11/21 17:17) Iohexol Injection (Omnipaque 350 Mg/Ml 1 (12/11/21 17:30) Received Contrast (Hold Metformin- Contr (12/11/21 17:30) Ns (Ivpb) (Sodium Chloride 0.9% Ivpb Bag (12/11/21 17:30) Sodium Chloride Flush (Catheter Flush Sy (12/11/21 17:30) Methylprednisolone Sod Succ (Solu-Medrol (12/11/21 18:30) Medications Given in ED Current Medications Medications Dose Ordered Sig/Paige Route Start Time Stop Time Status Last Admin Dose Admin Iohexol 75 ml ONCE ONCE IV 12/11/21 17:30 12/11/21 17:48 DC 12/11/21 17:40 75 ML Methylprednisolone Sodium Succinate 125 mg ONCE ONCE IVP 12/11/21 18:30 12/11/21 18:31 DC 12/11/21 18:48 125 MG Sodium Chloride 10 ml NEEDED PRN IV 12/11/21 17:30 12/11/21 17:40 10 ML Sodium Chloride 100 ml ONCE ONCE IV 12/11/21 17:30 12/11/21 17:48 DC 12/11/21 17:40 80 ML Vital Signs/I&O 12/11/21 17:09 Temp 36.2 Pulse 75 Resp 14 B/P (MAP) 132/87 (102) Pulse Ox 100 O2 Delivery Room Air 2 Blood Pressure Mean: 102 FSBG Bedside Testing Finger Stick Blood Glucose: 96 Progress Progress Note : Progress Note Evaluation of patient in ER showed 86-year-old male patient with complaining of sudden onset of right upper extremity weakness. Patient states he reached something above his head and suddenly felt weakness of his hand. Patient had NIH scale of 1 that gradually resolved to 0. Patient had right wrist drop at arrival to ER. Patient had negative CT head and CT angio head and neck for acute ischemic or hemorrhagic stroke. Wrist drop improved after warming his hand. Solu-Medrol 125 mg IV was given. Plan discharge patient home with diagnosis of radial nerve palsy that gradually improved. Resting splint was applied and patient advised to follow-up with his primary care physician for further treatment and evaluation including possible physical therapy. Prescription for Medrol Dosepak was given. Diagnostic Imaging Plain Films/CT/US/NM/MRI: chest Comments Chest x-ray interpreted by radiologist and reviewed by me and showed: [place], [place] NAME: PAT CHOI [facility] REC#: [id number] PT STATUS: REG ER : 1935 PHYSICIAN: YELENA BONILLA MD ADMIT DATE: 12/11/21/ER FS Signed Date of Exam:12/11/21 CHEST 1 VIEW AP/PA ONLY INDICATION: Right arm weakness, stroke activation. Frontal chest obtained at 5:50 p.m. and compared to 06/16/2019. FINDINGS: Right-sided Port-A-Cath is unchanged with tip overlying the SVC. Heart is normal in size. The lungs are clear. There is no pneumothorax or pleural fluid. IMPRESSION: No acute process in the chest. Dictated by: Dictated on workstation # [id number] Dict: 12/11/211750 Trans: 12/11/211834 [id number] Interpreted by: PAT DEVI MD Electronically signed by: PAT DEVI MD 12/11/211834 CT Results/Progress Notes CT head interpreted by radiologist and reviewed by me and showed: NAME: PAT CHOI MED REC#: [id number] PT STATUS: REG ER : 1935 PHYSICIAN: YELENA BONILLA MD ADMIT DATE: 12/11/21/ER FS Signed Date of Exam:12/11/21 CT HEAD WO-R/O STROKE INDICATION: Stroke, right arm numbness. TECHNIQUE: Multiple contiguous axial images were obtained through the brain without the use of intravenous contrast. Auto Exposure Controls were utilized during the CT exam to meet ALARA standards for radiation dose reduction. COMPARISON: There is no prior study for comparison. FINDINGS: There are no extra-axial fluid collections. No intracranial hemorrhage. No intracranial mass or mass effect. No midline shift. The ventricles are normal in size and position. 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 There is no definite acute finding. Calvarial windows are normal. 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 No hemorrhage or mass effect or otherwise acute finding. Dictated by: Dictated on workstation # [id number] Dict: 12/11/211750 Trans: 12/11/211834 [id number] Interpreted by: PAT DEVI MD Electronically signed by: PAT DEVI MD 12/11/211834 CTA head and neck interpreted by radiologist and reviewed by me and showed: NAME: PAT CHOI [facility] REC#: [id number] PT STATUS: REG ER : 1935 PHYSICIAN: YELENA BONILLA MD ADMIT DATE: 12/11/21/ER FS Signed Date of Exam:12/11/21 CT HEAD WO-R/O STROKE INDICATION: Stroke, right arm numbness. TECHNIQUE: Multiple contiguous axial images were obtained through the brain without the use of intravenous contrast. Auto Exposure Controls were utilized during the CT exam to meet ALARA standards for radiation dose reduction. COMPARISON: There is no prior study for comparison. FINDINGS: There are no extra-axial fluid collections. No intracranial hemorrhage. No intracranial mass or mass effect. No midline shift. The ventricles are normal in size and position. 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 There is no definite acute finding. Calvarial windows are normal. 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 No hemorrhage or mass effect or otherwise acute finding. Dictated by: Dictated on workstation # [id number] Dict: 12/11/21 1751 Trans: 12/11/21 1835 [id number] Interpreted by: PAT DEVI MD Electronically signed by: PAT DEVI MD 12/11/215 Departure Impression Primary Impression: Acute radial nerve palsy of left upper extremity Additional Impression: Elevated BUN Disposition: 01 HOME, SELF-CARE Condition: Improved Departure-Patient Inst. Decision time for Depature: 19:00 Referrals: EJ GASPAR DO (PCP/Family) Primary Care Physician Patient Instructions: Radial Nerve Entrapment (DC) Add. Discharge Instructions: Apply ice on your neck Follow-up with your primary care physician in 2 or 3 days for further treatment Return to ER as needed Wear provided wrist splint All discharge instructions reviewed with patient and/or family. Voiced understanding. Scripts Methylprednisolone (Methylprednisolone Dose Pack) 4 Mg Tab.ds.pk 4 MG PO UD for asthma for 6 Days, #21 PKG PER DOSE PACK INSTRUCTIONS Prov: YELENA BONILLA MD 12/11/21 YELENA BONILLA MD Dec 11, 2021 19:01
[2021-12-11 19:09] VITALS: BP 143/87
== END 2021-12-11 19:11 | disposition home or self-care (01) ==
LOC: EDUNIT# 16:51 → ER FS 16:53
DX: G56.32 Lesion of radial nerve, left upper limb (principal); R79.89 Other specified abnormal findings of blood chemistry
CPT/HCPCS: 36415; 70450; 70496; 70498; 71045; 80053; 82947; 84484; 85025; 85610; 85730; 93005; 93041; 96374; Q9967

== ENCOUNTER → 2022-05-29 | Outpatient (CLI) | payer MEDICARE, OTHER ==
[~2022-05-29] VITALS: Ht 182.9 cm; Wt 69.0 kg
[~2022-05-29] MED LIST changes: +LISI5TAB20 PO; +METH4TAB10 PO; +PRED5TAB PO
== END | disposition home or self-care (01) ==
LOC: PREOP 05:27
PROVIDERS: ATTEND Surgery
DX: Z01.818 Encounter for other preprocedural examination (principal)

== ENCOUNTER → 2022-06-11 | Day surgery (SDC) | payer MEDICARE, BC ==
[~2022-06-11] VITALS: Ht 182.9 cm; Wt 69.0 kg
[~2022-06-11] MED LIST changes: +LACTATED RINGERS 1,000 ML IV STA; +PROPOFOL INJECTION 50 ML IV ONE
[2022-06-11 10:30] VITALS: BP 183/78
[2022-06-11 12:48] VITALS: BP 119/77
--- NOTE | 2022-06-11 12:49 | Progress Note-Post Operative ---
Post-Operative Progess Note Surgeon (s)/Measurement Technician (s) Surgeon REVA VELÁSQUEZ DO Measurement Technician: none Pre-Operative Diagnosis Personal hx of colon polyps Post-Operative Diagnosis Colon polyps Melanosis Coli int hemorrhoids Procedure & Operative Findings Date of Procedure 06/11/22 Procedure Performed/Findings Colonoscopy with snare polypectomy PROCEDURE NOTE: After informed consent was obtained, the patient was brought to the endoscopy suite, placed in bed in left lateral decubitus position. He was administered IV sedation by the Anesthesiologist who then monitored his vitals the entire time, heart rate, blood pressure and pulse ox and the scope was inserted, pushed all the way to about 150 cm and pushed into the cecum, took a picture of appendiceal orifice and noted the ileocecal valve. Then slowly withdrew the scope insufflating to look circumferentially at the araya starting in the cecum, up the ascending colon to the hepatic flexure, then down the transverse colon to the splenic flexure, into the descending colon down into the sigmoid. I found a small flat polyp here and elected to remove it with hot snare. Finally into the rectal vault and retroflexed the scope; where I saw another large polyp just above the dentate line. Removed this with hot snare as well. I also took picture of the internal hemorrhoids. The patient tolerated the procedure. He was recovered in endoscopy suite. Recommended for repeat colonoscopy in 1 years. Anesthesia Type IV sedation by Anesthesia Estimated Blood Loss Estimated blood loss (mL): scant Specimens/Packing Specimens Removed sigmoid polyp rectal polyp REVA VELÁSQUEZ DO Jun 11, 2022 12:49
--- NOTE | 2022-06-11 12:50 | Endoscopy Discharge Instruct ---
Endo Procedure/Findings Findings 1.: Polyp 2.: Internal Hemorrhoids 3.: Other Findings (melanosis coli) 4.: Other Findings (possible AVM) Discharge Instructions - Activity: You might feel a little sleepy until tomorrow. This is due to the medicine you received to relax you. Until tomorrow, you should: NOT drive a car, operate machinery or power tools. NOT drink any alcoholic beverages. NOT make any important decisions or sign importortant papers. Do not return to work until tomorrow, unless otherwise instructed. Resume previous activities tomorrow. Diet: Start by taking liquids. If you tolerate liquids, advance to solid food. 1.: Colonoscopy in 1 year Notify Physician - If you experience excessive bleeding, unusual abdominal pain, fever, or chest pain, contact your doctor immediately. REVA VELÁSQUEZ DO Jun 11, 2022 12:50
[2022-06-11 12:53] VITALS: BP 122/65
[2022-06-11 13:00] VITALS: BP 132/67
[2022-06-11 13:11] VITALS: BP 132/67
--- NOTE | 2022-06-11 13:28 | Anesthesia-General Post-Op ---
MAC Patient Condition Mental Status/LOC: Same as Preop Cardiovascular: Satisfactory Nausea/Vomiting: Absent Respiratory: Satisfactory Pain: Controlled Complications: Absent Post Op Complications Complications None Follow Up Care/Instructions Patient Instructions None needed. Anesthesiology Discharge Order Discharge Order Patient was doing well after the procedure with no complaints, stable vital signs, no apparent adverse anesthesia problems. No complications reported per nursing. TERRIE RAMIREZ DO Jun 11, 2022 13:28
== END | disposition home or self-care (01) ==
LOC: ENDO 10:09
PROVIDERS: ATTEND Surgery
DX: Z12.11 Encounter for screening for malignant neoplasm of colon (principal); D12.5 Benign neoplasm of sigmoid colon; D12.8 Benign neoplasm of rectum; K63.89 Other specified diseases of intestine; K64.8 Other hemorrhoids
CPT/HCPCS: 88305

== ENCOUNTER 2022-07-23 14:40 | Emergency (ER) | payer MEDICARE, BC ==
[~2022-07-23] VITALS: Ht 182 cm; Wt 70.0 kg
[~2022-07-23 14:40] MED LIST changes: -LACTATED RINGERS 1,000 ML IV STA; -PROPOFOL INJECTION 50 ML IV ONE
--- NOTE | 2022-07-23 15:04 | ED General ---
General Chief Complaint: Cough/Cold/Flu Symptoms Stated Complaint: ELEV BP; NAUSEA; GEN WEAKNESS Nursing Triage Note: PT REPORTS HE WOKE UP THIS AM NAUSEATED BUT HAS BEEN ABLE TO EAT AND DRINK TODAY. HE REPORTS HE HAS HAD CHEST CONGESTION FOR ABOUT 2 WEEKS AND TODAY SOME GENERALIZED WEAKNESS. Source of Information: Patient, Family (daughter) History of Present Illness Date Seen by Provider: Jul 23, 2022 Time Seen by Provider: 14:56 Initial Comments 86-year-old male presents to the emergency department today for generalized weakness. He woke up nauseated this morning. He was working out in the barn and got cold, came into rest and sat in the chair. He was then too weak to get himself up out of the chair. He denies any focalized weakness but has diffuse generalized weakness. Symptoms started a couple days ago with a cough but was feeling otherwise relatively well. Notably he does have a history of non- Hodgkin's lymphoma in 2013. He has been in remission since that time but recently noticed any swelling in his right groin. He has a follow-up CT scan next week to further evaluate. He is febrile to 103. His cough has been relatively nonproductive. No abdominal pain or changes in bowel or bladder habits. No chest pain. All other systems reviewed and negative except documented per HPI. Voice recognition software was used to help create this chart Allergies and Home Medications Allergies Coded Allergies: No Known Drug Allergies (Unverified , 05/07/19) Patient Home Medication List Home Medication List Reviewed: Yes Lisinopril (Lisinopril) 5 Mg Tablet, 5 MG PO DAILY, (Reported) Entered as Reported by: GRICEL AGUILERA on 05/30/22 140 Prednisone (Prednisone) 5 Mg Tablet, 5 MG PO DAILY, (Reported) Entered as Reported by: GRICEL AGUILERA on 05/30/22 1403 Review of Systems Review of Systems Constitutional: malaise, weakness Past Emqbsov-Lvekpb-Quabdw Hx Patient Social History Tobacco Use?: No Use of E-Cig and/or Vaping dev: No Substance use?: No Alcohol Use?: No Pt feels they are or have been: No Immunizations Up To Date Tetanus Booster (TDap): Unknown First/Initial COVID19 Vaccinat: 2020 Second COVID19 Vaccination Alexy: 2020 Third COVID19 Vaccination Date: 2020 Seasonal Allergies Seasonal Allergies: No Past Medical History Surgery/Hospitalization HX: HTN, arthritis, non-hodgkins lymphoma Surgeries: Yes (hernia x2, knee scope, cataracts,PORT) Appendectomy Respiratory: No Currently Using CPAP: No Currently Using BIPAP: No Cardiac: No Hypertension Neurological: No Sexually Transmitted Disease: No HIV/AIDS: No Genitourinary: No Gastrointestinal: Yes Polyps Musculoskeletal: Yes Arthritis Endocrine: No HEENT: Yes (GLASSES) Loss of Vision: Denies Hearing Impairment: Denies Cancer: Yes Lymphoma Did You Recieve Any Treatments: Yes What Type of Treatment Did You: Chemotherapy Psychosocial: No Integumentary: No Blood Disorders: No Adverse Reaction/Blood Tranf: No (N/A) Physical Exam Vital Signs Vital Signs - First Documented 07/23/22 14:56 Temp 39.4 Pulse 103 Resp 16 B/P (MAP) 154/76 (102) Pulse Ox 96 O2 Delivery Room Air Capillary Refill : Less Than 3 Seconds Height, Weight, BMI Height: 6'0.00" Weight: 162lbs. 0.0oz. [id number]; 21.00 BMI Method: General Appearance: No Apparent Distress, WD/WN HEENT: PERRL/EOMI, TMs Normal, Normal ENT Inspection, Pharynx Normal Neck: Full Range of Motion, Non Tender, Supple Respiratory: Chest Non Tender, Lungs Clear, Normal Breath Sounds, No Accessory Muscle Use, No Respiratory Distress Cardiovascular: No Edema, No Murmur, Normal Peripheral Pulses, Tachycardia Gastrointestinal: Normal Bowel Sounds, No Organomegaly, No Pulsatile Mass, Non Tender, Soft Genital/Rectal: Other (There is fullness and firmness to palpation in the right groin compared to the left. This is visible as well. There are no overlying skin changes. 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 Skin: Normal Color, Warm/Dry Lymphatic: No Adenopathy Focused Exam Lactate Level 07/23/22 15:02: Lactic Acid Level 1.94 Lactic Acid Level Laboratory Tests Test 07/23/22 15:02 Lactic Acid Level 1.94 MMOL/L (0.50-2.00) Procedures/Interventions Suture Size: 4-0 Progress/Results/Core Measures Suspected Sepsis SIRS Temperature: Pulse: 103 Respiratory Rate: 16 Laboratory Tests 07/23/22 15:02: White Blood Count 20.8H Blood Pressure 154 /76 Mean: 102 07/23/22 15:02: Lactic Acid Level 1.94 Laboratory Tests 07/23/22 15:02: Creatinine 1.16, INR Comment 1.0, Platelet Count 240, Total Bilirubin 0.4 Results/Orders Lab Results Laboratory Tests Test 07/23/22 14:45 07/23/22 14:51 07/23/22 15:02 Range/Units Urine Color YELLOW Urine Clarity CLEAR Urine pH 7.0 5-9 Urine Specific [place] 1.020 1.016-1.022 Urine Protein NEGATIVE NEGATIVE Urine Glucose (UA) NEGATIVE NEGATIVE Urine Ketones NEGATIVE NEGATIVE Urine Nitrite NEGATIVE NEGATIVE Urine Bilirubin NEGATIVE NEGATIVE Urine Urobilinogen 0.2 < = 1.0 MG/DL Urine Leukocyte Esterase NEGATIVE NEGATIVE Urine RBC (Auto) NEGATIVE NEGATIVE Urine RBC RARE /HPF Urine WBC 0-2 /HPF Urine Squamous Epithelial Cells RARE /HPF Urine Crystals NONE /LPF Urine Bacteria NEGATIVE /HPF Urine Casts NONE /LPF Urine Mucus NEGATIVE /LPF Urine Culture Indicated NO Influenza Type A (RT-PCR) Not Detected Not Detecte Influenza Type B (RT-PCR) Not Detected Not Detecte SARS-CoV-2 RNA (RT-PCR) Not Detected Not Detecte White Blood Count 20.8 H 4.3-11.0 10^3/uL Red Blood Count 4.16 L 4.30-5.52 10^6/uL Hemoglobin 12.2 L 13.3-17.7 g/dL Hematocrit 37 L 40-54 % Mean Corpuscular Volume 90 80-99 fL Mean Corpuscular Hemoglobin 29 25-34 pg Mean Corpuscular Hemoglobin Concent 33 32-36 g/dL Red Cell Distribution Width 14.4 10.0-14.5 % Platelet Count 240 130-400 10^3/uL Mean Platelet Volume 9.1 9.0-12.2 fL Immature Granulocyte % (Auto) 1 % Neutrophils (%) (Auto) 93 H 42-75 % Lymphocytes (%) (Auto) 2 L 12-44 % Monocytes (%) (Auto) 5 0-12 % Eosinophils (%) (Auto) 0 0-10 % Basophils (%) (Auto) 0 0-10 % Neutrophils # (Auto) 19.3 H 1.8-7.8 10^3/uL Lymphocytes # (Auto) 0.4 L 1.0-4.0 10^3/uL Monocytes # (Auto) 0.9 0.0-1.0 10^3/uL Eosinophils # (Auto) 0.0 0.0-0.3 10^3/uL Basophils # (Auto) 0.0 0.0-0.1 10^3/uL Immature Granulocyte # (Auto) 0.1 0.0-0.1 10^3/uL Neutrophils % (Manual) 89 % Lymphocytes % (Manual) 2 % Monocytes % (Manual) 2 % Eosinophils % (Manual) 0 % Basophils % (Manual) 0 % Band Neutrophils 7 % Prothrombin Time 13.4 12.2-14.7 SEC INR Comment 1.0 0.8-1.4 Activated Partial Thromboplast Time 24 24-35 SEC Sodium Level 137 135-145 MMOL/L Potassium Level 4.3 3.6-5.0 MMOL/L Chloride Level 101 98-107 MMOL/L Carbon Dioxide Level 27 21-32 MMOL/L Anion Gap 9 5-14 MMOL/L Blood Urea Nitrogen 22 H 7-18 MG/DL Creatinine 1.16 0.60-1.30 MG/DL Estimat Glomerular Filtration Rate 61 BUN/Creatinine Ratio 19 Glucose Level 164 H 70-105 MG/DL Lactic Acid Level 1.94 0.50-2.00 MMOL/L Calcium Level 9.0 8.5-10.1 MG/DL Corrected Calcium 9.0 8.5-10.1 MG/DL Total Bilirubin 0.4 0.1-1.0 MG/DL Aspartate Amino Transf (AST/SGOT) 21 5-34 U/L Alanine Aminotransferase (ALT/SGPT) 14 0-55 U/L Alkaline Phosphatase 86 40-136 U/L Total Protein 6.3 L 6.4-8.2 GM/DL Albumin 4.0 3.2-4.5 GM/DL My Orders Orders - RAGHU SMITH DO Ua Culture If Indicated (07/23/22 14:53) Covid 19 Inhouse Test (07/23/22 14:53) Influenza A And B By Pcr (07/23/22 14:53) Cbc With Automated Diff (07/23/22 15:01) Comprehensive Metabolic Panel (07/23/22 15:01) Blood Culture (07/23/22 15:01) Urine Culture (07/23/22 15:) Protime With Inr (07/23/22 15:) Partial Thromboplastin Time (07/23/22 15:01) Chest 1 View Ap/Pa Only (07/23/22 15:01) Acetaminophen Tablet (Tylenol Tablet) (07/23/22 15:15) Ed Iv/Invasive Line Start (07/23/22 15:01) Vital Signs Adult Sepsis Patie Q15M (07/23/22 15:01) Lactic Acid Analyzer (07/23/22 15:01) Ct Abdomen/Pelvis W (07/23/22 15:04) Manual Differential (07/23/22 15:02) Iohexol Injection (Omnipaque 350 Mg/Ml 1 (07/23/22 15:45) Received Contrast (Hold Metformin- Contr (07/23/22 15:45) Ns (Ivpb) (Sodium Chloride 0.9% Ivpb Bag (07/23/22 15:45) Medications Given in ED Current Medications Medications Dose Ordered Sig/Paige Route Start Time Stop Time Status Last Admin Dose Admin Acetaminophen 1,000 mg ONCE PRN PO 07/23/22 15:15 07/23/22 15:15 DC 07/23/22 15:12 1,000 MG Iohexol 100 ml ONCE ONCE IV 07/23/22 15:45 07/23/22 15:46 DC 07/23/22 15:52 75 ML Sodium Chloride 100 ml ONCE ONCE IV 07/23/22 15:45 07/23/22 15:46 DC 07/23/22 15:52 100 ML Vital Signs/I&O 07/23/22 14:56 Temp 39.4 Pulse 103 Resp 16 B/P (MAP) 154/76 (102) Pulse Ox 96 O2 Delivery Room Air Capillary Refill : Less Than 3 Seconds Blood Pressure Mean: 102 Departure Communication (Admissions) Patient is hemodynamically stable. CT scan is concerning for possible recurrence of lymphoma. There is no evidence of a blast crisis at this time. He does have significant leukocytosis but lymphocytes are normal, no bands. No obvious source of infection with a clear chest x-ray and I have independently reviewed the images as well. Urinalysis is negative. COVID and flu testing are negative. Remainder of his labs are unremarkable. He is immunocompromised with cancer however so I fears that he may be hiding an infection somewhere. I will go ahead and start on antibiotics. Advised him to follow-up with his oncologist sooner than his currently scheduled August appointment. He states understanding. Did advise to return to care immediately if his weakness worsens or if he is not improving in the next 24 to 48 hours. He states understanding. He is discharged in stable condition Impression Primary Impression: Inguinal lymphadenopathy Additional Impressions: Leukocytosis Qualified Codes: D72.829 - Elevated white blood cell count, unspecified Fever Qualified Codes: R50.9 - Fever, unspecified Disposition: 01 HOME, SELF-CARE Condition: Stable Departure-Patient Inst. Referrals: EJ GASPAR DO (PCP) Primary Care Physician Patient Instructions: Fever of Unknown Origin (DC) Add. Discharge Instructions: As discussed your CT scan enlarged lymph nodes concerning for recurrence of lymphoma. I do not see any obvious source of infection however with your fever and elevated white blood cell count I am concerned we might be missing an infection. With that please take the antibiotics as prescribed until they are gone. Call Dr. Allison to schedule a follow-up appointment sooner than your August appointment. At this time there is no evidence for complication of lymphoma however you should return to care if your weakness persists or worsens or if your symptoms change in any way concerning to you. All discharge instructions reviewed with patient and/or family. Voiced understanding. Scripts Ciprofloxacin HCl (Ciprofloxacin HCl) 500 Mg Tablet 500 MG PO BID for 7 Days, #14 TAB Prov: RAGHU SMITH DO 07/23/22 RAGHU SMITH DO Jul 23, 2022 15:04
[2022-07-23 15:07] LABS: BILIRUBIN,URINE NEGATIVE (NEGATIVE); CLARITY,URINE CLEAR; COLOR,URINE YELLOW; GLUCOSE, URINE (UA) NEGATIVE (NEGATIVE); KETONES,URINE NEGATIVE (NEGATIVE); LEUKOCYTE ESTERASE ,URINE NEGATIVE (NEGATIVE); NITRITE,URINE NEGATIVE (NEGATIVE); PROTEIN,URINE NEGATIVE (NEGATIVE)
[2022-07-23 15:12] LABS: BACTERIA,URINE NEGATIVE /HPF; RBC,URINE RARE /HPF; SQUAMOUS EPITHELIAL CELL,UR RARE /HPF; WBC,URINE 0-2 /HPF
[2022-07-23] MEDS ORDERED: ACETAMINOPHEN 500 MG TAB (TYLENOL) PO PRN (15:15)
[2022-07-23 15:26] LABS: BASOPHILS % (AUTO) 0 % (0-10); EOSINOPHILS % (AUTO) 0 % (0-10); HEMATOCRIT 37 % (40-54); HEMOGLOBIN 12.2 g/dL (13.3-17.7); LYMPHOCYTES # (AUTO) 0.4 10^3/uL (1.0-4.0); LYMPHOCYTES % (AUTO) 2 % (12-44); MEAN CORPUSCULAR HEMOGLOBIN 29 pg (25-34); MEAN CORPUSCULAR HGB CONC 33 g/dL (32-36); MEAN CORPUSCULAR VOLUME 90 fL (80-99); MEAN PLATELET VOLUME 9.1 fL (9.0-12.2); MONOCYTES # (AUTO) 0.9 10^3/uL (0.0-1.0); MONOCYTES % (AUTO) 5 % (0-12); NEUTROPHILS # (AUTO) 19.3 10^3/uL (1.8-7.8); NEUTROPHILS % (AUTO) 93 % (42-75); PLATELET COUNT 240 10^3/uL (130-400); WHITE BLOOD COUNT 20.8 10^3/uL (4.3-11.0)
[2022-07-23 15:35] LABS: PROTHROMBIN TIME PATIENT 13.4 SEC (12.2-14.7)
[2022-07-23 15:40] LABS: BILIRUBIN,TOTAL 0.4 MG/DL (0.1-1.0); CREATININE SERUM 1.16 MG/DL (0.60-1.30); POTASSIUM 4.3 MMOL/L (3.6-5.0); TOTAL PROTEIN 6.3 GM/DL (6.4-8.2)
[2022-07-23] MEDS ORDERED: IOHEXOL 350 MG/ML 100 ML (OMNIPAQUE 350) VIAL IV ONE (15:45)
[2022-07-23] MEDS ORDERED: NS 100 ML (IVPB) BAG IV ONE (15:45)
[2022-07-23] MEDS ORDERED: HOLD METFORMIN - RECEIVED CONTRAST 20 ML VIAL IV SCH (15:45)
[2022-07-23 15:53] LABS: BAND NEUTROPHILS 7 %; BASOPHILS % (MANUAL) 0 %; EOSINOPHILS % (MANUAL) 0 %; LYMPHOCYTES % (MANUAL) 2 %; MONOCYTES % (MANUAL) 2 %; NEUTROPHILS % (MANUAL) 89 %
--- NOTE | 2022-07-23 16:15 | Diagnostic Imaging Report ---
INDICATION: Nausea and fever. Frontal chest obtained at 4:06 p.m. and compared to 12/11/2021. FINDINGS: Port-A-Cath is unchanged. Heart is normal in size. Mediastinal silhouette is unremarkable. There are no focal infiltrates, pneumothoraces, or pleural fluid. IMPRESSION: No acute process in the chest. Dictated by: Dictated on workstation # [id number]
--- NOTE | 2022-07-23 16:18 | Diagnostic Imaging Report ---
EXAMINATION: CT abdomen and pelvis with intravenous contrast. TECHNIQUE: Multiple contiguous axial images were obtained through the abdomen and pelvis after the uneventful administration of intravenous contrast. All CT scans use one or more of the following dose optimizing techniques: Automated exposure control, MA and/or KvP adjustment based on patient size and exam type or iterative reconstruction. HISTORY: Right groin pain. COMPARISON: 09/15/2019. FINDINGS: Lung bases: There is atelectasis or scarring within the lung bases. Solid organs: The liver is normal without focal lesion. The gallbladder is normal. There is no biliary ductal dilation. Pancreas is normal. Spleen is normal. Adrenal glands are normal. There are bilateral renal cysts which require no follow-up. No hydronephrosis. Bowel: The stomach and small bowel are normal without obstruction. The colon is unremarkable with a moderate amount of stool. Peritoneum: There is no intraperitoneal free fluid or free air. There are enlarged bilateral external iliac chain and inguinal lymph nodes present. 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 Vasculature: Calcification of the aorta without aneurysm. Musculoskeletal: Degenerative changes of the spine without suspicious osseous lesion or compression fracture. Pelvis: The prostate gland is enlarged. The urinary bladder is normal. IMPRESSION: 1. Enlarged external iliac chain and bilateral inguinal lymphadenopathy highly concerning for lymphoma given patient history. 2. No other acute abnormality seen within the abdomen or pelvis. Dictated by: Dictated on workstation # [id number]
[2022-07-23 16:36] VITALS: BP 151/68
[2022-07-23] MEDS ORDERED: CIPR500T5 PO (16:36)
== END 2022-07-23 16:38 | disposition home or self-care (01) ==
LOC: EDUNIT# 14:40 → ER FS 14:41
DX: R59.1 Generalized enlarged lymph nodes (principal); D72.829 Elevated white blood cell count, unspecified; C85.90 Non-Hodgkin lymphoma, unspecified, unspecified site; Z92.21 Personal history of antineoplastic chemotherapy; Z20.822 Contact with and (suspected) exposure to COVID-19
CPT/HCPCS: 36415; 71045; 74177; 80053; 81000; 83605; 85007; 85027; 85610; 85730; 87040; 87088; 87636; Q9967

== ENCOUNTER 2022-08-03 17:53 | Emergency (ER) | payer MEDICARE, BC ==
[~2022-08-03 17:53] MED LIST changes: +CIPR500T5 PO
[2022-08-03] MEDS ORDERED: NS 100 ML (IVPB) BAG IV ONE (18:15)
[2022-08-03] MEDS ORDERED: HOLD METFORMIN - RECEIVED CONTRAST 20 ML VIAL IV SCH (18:15)
[2022-08-03] MEDS ORDERED: IOHEXOL 350 MG/ML 100 ML (OMNIPAQUE 350) VIAL IV ONE (18:15)
--- NOTE | 2022-08-03 18:18 | ED Cough/URI ---
General Chief Complaint: Fever-Adult/Adol Stated Complaint: FEVER; COUGH Source: patient, family, old records Exam Limitations: no limitations History of Present Illness Date Seen by Provider: Aug 03, 2022 Time Seen by Provider: 17:55 Initial Comments 86-year-old male with past medical history of non-Hodgkin's lymphoma and hypertension coming in due to persistent fever. He was seen in the ER roughly 10 days ago for the same, the fever typically comes on at nighttime. Had a CT scan concerning for recurrent lymphoma. Patient followed up with his oncologist the next day, reportedly the lymph node is actually similar size to what it had been and the oncologist is not is concerned for worsening lymphoma at this time. The patient had chemotherapy in 2013, has not had chemo since. Reportedly the lymphoma did come back, and has been slow growing so they have just been watching it. He has had mostly nonproductive cough for the past couple weeks associated with this, no vomiting, diarrhea, significant chest pain, does have some shortness of breath with it. Denies any lower extremity swelling or pain. Denies any prior history of DVT or PE. Otherwise denying any other acute complaints. Did finish a round of antibiotics after the last ER visit, did not really notice a difference. Allergies and Home Medications Allergies Coded Allergies: No Known Drug Allergies (Unverified , 05/07/19) Patient Home Medication List Home Medication List Reviewed: Yes Ciprofloxacin HCl (Ciprofloxacin HCl) 500 Mg Tablet, 500 MG PO BID Prescribed by: RAGHU SMITH MD on 07/23/22 1636 Lisinopril (Lisinopril) 5 Mg Tablet, 5 MG PO DAILY, (Reported) Entered as Reported by: GRICEL AGUILERA on 05/30/22 1403 Prednisone (Prednisone) 5 Mg Tablet, 5 MG PO DAILY, (Reported) Entered as Reported by: GRICEL AGUILERA on 05/30/22 1403 Review of Systems Review of Systems Constitutional: fever EENTM: no symptoms reported Respiratory: cough, short of breath Cardiovascular: no symptoms reported Gastrointestinal: no symptoms reported Genitourinary: no symptoms reported Musculoskeletal: no symptoms reported Skin: no symptoms reported Hematologic/Lymphatic: See HPI Past Oqttltv-Mwrvyz-Lvoxgz Hx Patient Social History Tobacco Use?: No Use of E-Cig and/or Vaping dev: No Substance use?: No Alcohol Use?: No Pt feels they are or have been: No Immunizations Up To Date Tetanus Booster (TDap): Unknown First/Initial COVID19 Vaccinat: 2020 Second COVID19 Vaccination Alexy: 2020 Third COVID19 Vaccination Date: 2020 Seasonal Allergies Seasonal Allergies: No Past Medical History Surgery/Hospitalization HX: HTN, arthritis, non-hodgkins lymphoma, appendectomy Surgeries: Yes (hernia x2, knee scope, cataracts,PORT) Appendectomy Respiratory: No Currently Using CPAP: No Currently Using BIPAP: No Cardiac: No Hypertension Neurological: No Sexually Transmitted Disease: No HIV/AIDS: No Genitourinary: No Gastrointestinal: Yes Polyps Musculoskeletal: Yes Arthritis Endocrine: No HEENT: Yes (GLASSES) Loss of Vision: Denies Hearing Impairment: Denies Cancer: Yes Lymphoma Did You Recieve Any Treatments: Yes What Type of Treatment Did You: Chemotherapy Psychosocial: No Integumentary: No Blood Disorders: No Adverse Reaction/Blood Tranf: No (N/A) Physical Exam Vital Signs - First Documented 08/03/22 17:58 Temp 37.0 Pulse 71 Resp 16 B/P (MAP) 160/92 (114) Pulse Ox 96 O2 Delivery Room Air Capillary Refill : Height: 6'0.00" Weight: 162lbs. 0.0oz. 73.306922mg; 21.00 BMI Method: General Appearance: WD/WN, no apparent distress Eyes: Bilateral Eye Normal Inspection HEENT: PERRL/EOMI, normal ENT inspection, TMs normal, pharynx normal Neck: non-tender, full range of motion, supple, normal inspection Respiratory: chest non-tender, lungs clear, normal breath sounds, no respiratory distress, no accessory muscle use Cardiovascular: regular rate, rhythm, no edema, no murmur Gastrointestinal: normal bowel sounds, non tender, soft; No distended, No guarding, No rebound Extremities: normal range of motion, non-tender, normal inspection, no pedal edema, no calf tenderness, normal capillary refill Neurologic/Psychiatric: no motor/sensory deficits, alert, normal mood/affect Skin: normal color, warm/dry Lymphatic: other (Inguinal lymph node palpated) Focused Exam Lactate Level 08/03/22 18:14: Lactic Acid Level 1.12 Lactic Acid Level Laboratory Tests Test 08/03/22 18:14 Lactic Acid Level 1.12 MMOL/L (0.50-2.00) Procedures/Interventions Suture Size: 4-0 Progress/Results/Core Measures Suspected Sepsis SIRS Temperature: Pulse: Respiratory Rate: Laboratory Tests 08/03/22 18:14: White Blood Count 16.2H Blood Pressure / Mean: 08/03/22 18:14: Lactic Acid Level 1.12 Laboratory Tests 08/03/22 18:14: Creatinine 1.23, Platelet Count 346, Total Bilirubin 0.5 Results/Orders Lab Results Laboratory Tests Test 08/03/22 18:14 Range/Units White Blood Count 16.2 H 4.3-11.0 10^3/uL Red Blood Count 3.72 L 4.30-5.52 10^6/uL Hemoglobin 10.7 L 13.3-17.7 g/dL Hematocrit 33 L 40-54 % Mean Corpuscular Volume 89 80-99 fL Mean Corpuscular Hemoglobin 29 25-34 pg Mean Corpuscular Hemoglobin Concent 32 32-36 g/dL Red Cell Distribution Width 13.8 10.0-14.5 % Platelet Count 346 130-400 10^3/uL Mean Platelet Volume 9.0 9.0-12.2 fL Immature Granulocyte % (Auto) 1 % Neutrophils (%) (Auto) 88 H 42-75 % Lymphocytes (%) (Auto) 4 L 12-44 % Monocytes (%) (Auto) 6 0-12 % Eosinophils (%) (Auto) 1 0-10 % Basophils (%) (Auto) 0 0-10 % Neutrophils # (Auto) 14.2 H 1.8-7.8 10^3/uL Lymphocytes # (Auto) 0.7 L 1.0-4.0 10^3/uL Monocytes # (Auto) 1.0 0.0-1.0 10^3/uL Eosinophils # (Auto) 0.1 0.0-0.3 10^3/uL Basophils # (Auto) 0.0 0.0-0.1 10^3/uL Immature Granulocyte # (Auto) 0.1 0.0-0.1 10^3/uL Neutrophils % (Manual) 93 % Lymphocytes % (Manual) 3 % Monocytes % (Manual) 3 % Eosinophils % (Manual) 1 % Sodium Level 139 135-145 MMOL/L Potassium Level 3.6 3.6-5.0 MMOL/L Chloride Level 102 98-107 MMOL/L Carbon Dioxide Level 25 21-32 MMOL/L Anion Gap 12 5-14 MMOL/L Blood Urea Nitrogen 23 H 7-18 MG/DL Creatinine 1.23 0.60-1.30 MG/DL Estimat Glomerular Filtration Rate 57 BUN/Creatinine Ratio 19 Glucose Level 123 H 70-105 MG/DL Lactic Acid Level 1.12 0.50-2.00 MMOL/L Calcium Level 9.0 8.5-10.1 MG/DL Corrected Calcium 9.6 8.5-10.1 MG/DL Magnesium Level 2.0 1.6-2.4 MG/DL Total Bilirubin 0.5 0.1-1.0 MG/DL Aspartate Amino Transf (AST/SGOT) 29 5-34 U/L Alanine Aminotransferase (ALT/SGPT) 22 0-55 U/L Alkaline Phosphatase 103 40-136 U/L C-Reactive Protein 22.69 H <0.50 MG/DL Pro-B-Type Natriuretic Peptide 927.1 H <450.0 PG/ML Total Protein 6.1 L 6.4-8.2 GM/DL Albumin 3.2 3.2-4.5 GM/DL Lipase 19 8-78 U/L My Orders Orders - CHET SKY MD Ct Angio Chest W (08/03/22 18:09) Cbc With Automated Diff (08/03/22 18:09) Comprehensive Metabolic Panel (08/03/22 18:09) Lipase (08/03/22 18:09) Magnesium (08/03/22 18:09) Probnp Fs (08/03/22 18:09) Crp Fs (08/03/22 18:09) Ed Iv/Invasive Line Start (08/03/22 18:09) Ekg Tracing (08/03/22 18:09) Blood Culture (08/03/22 18:14) Lactic Acid Analyzer (08/03/22 18:14) Iohexol Injection (Omnipaque 350 Mg/Ml 1 (08/03/22 18:15) Received Contrast (Hold Metformin- Contr (08/03/22 18:15) Ns (Ivpb) (Sodium Chloride 0.9% Ivpb Bag (08/03/22 18:15) Manual Differential (08/03/22 18:14) Ceftriaxone 1 Gm Pre-Mix (Rocephin 1 Gm (08/03/22 19:00) Doxycycline Hyclate Tablet (Vibramycin T (08/03/22 18:54) Medications Given in ED Current Medications Medications Dose Ordered Sig/Paige Route Start Time Stop Time Status Last Admin Dose Admin Ceftriaxone Sodium/Dextrose 50 ml @ 100 mls/hr ONCE ONCE IV 08/03/22 19:00 08/03/22 19:29 08/03/22 19:15 100 MLS/HR Iohexol 100 ml ONCE ONCE IV 08/03/22 18:15 08/03/22 18:25 DC 08/03/22 18:45 100 ML Sodium Chloride 100 ml ONCE ONCE IV 08/03/22 18:15 08/03/22 18:25 DC 08/03/22 18:45 100 ML Vital Signs/I&O 08/03/22 17:58 Temp 37.0 Pulse 71 Resp 16 B/P (MAP) 160/92 (114) Pulse Ox 96 O2 Delivery Room Air Capillary Refill : Progress Note : Progress Note 86-year-old male with above history coming in due to cough and fever. ABCs were intact and vitals were stable on presentation. Physical exam with no significant abnormalities. I reviewed his ED stay from the other day including the CT abdomen pelvis concerning for lymphadenopathy. Chest x-ray was clear that day. His white blood cell count today is 16,000 down from the other day. CT chest looking for PE versus pneumonia was obtained. Concerning for multifocal pneumonia. He was given ceftriaxone as well as doxycycline here. Otherwise well-appearing and I believe stable for outpatient management. He was sent home with strict return precautions with new prescription for antibiotics. ECG Initial ECG Impression Date: Aug 03, 2022 Initial ECG Impression Time: 18:09 Initial ECG Rate: 77 Initial ECG Rhythm: Normal Sinus Comment Narrow QRS, normal axis, no significant ST changes or T wave abnormalities. Diagnostic Imaging Diagonstic Imaging: CT (CTA chest) Comments NAME: PAT CHOI REC#: [id number] PT STATUS: REG ER : 1935 PHYSICIAN: CHET SKY MD ADMIT DATE: 08/03/22/ER FS Signed Date of Exam:08/03/22 CT ANGIO CHEST W EXAMINATION: CT angiography of the chest. TECHNIQUE: Contrast enhanced thin section helical images were obtained through the chest with intravenous contrast timed for the optimal opacification of the arterial structures per CTA protocol. Post-processing, reconstructions and interpretation of angiographic images of the vessels was performed. 3D MIP reconstructions were performed and reviewed. All CT scans use one or more of the following dose optimizing techniques: automated exposure control, MA and/or KvP adjustment based on patient size and exam type or iterative reconstruction. HISTORY: SOB, cough, lymphoma history COMPARISON: 09/15/2019. FINDINGS: Vascular: There is no filling defect within the pulmonary arteries. The thoracic aorta is normal in caliber. Thyroid: The thyroid is normal. Mediastinum: Heart size is normal without significant pericardial effusion. No suspicious lymphadenopathy. Lungs and airways: Patchy groundglass opacities and consolidation throughout both lungs, greatest in the left lung base. There are small bilateral pleural effusions. No pneumothorax. The airways are normal. Upper abdomen: Partially visualized left renal cyst. Musculoskeletal: Degenerative changes of the spine without suspicious osseous lesion or compression fracture. IMPRESSION: 1. No finding of pulmonary embolus. 2. Patchy groundglass opacities and consolidation throughout both lungs concerning for a multifocal pneumonia. Dictated by: Dictated on workstation # [id number] Dict: 08/03/221852 Trans: 08/03/221856 [facility] [id number] Interpreted by: BRENDA KUMAR DO Electronically signed by: BRENDA KUMAR DO 08/03/221856 Departure Impression Primary Impression: Multifocal pneumonia Disposition: 01 HOME, SELF-CARE Condition: Stable Departure-Patient Inst. Decision time for Depature: 19:25 Referrals: EJ GASPAR DO (PCP) Primary Care Physician Patient Instructions: Pneumonia, Adult ED Add. Discharge Instructions: You will be on two different antibiotics for the next 10 days. Follow up with your regular doctor if not improving in the next several days. Scripts Doxycycline Hyclate (Doxycycline Hyclate) 100 Mg Tablet 100 MG PO BID for 10 Days, #20 TAB 0 Refills Prov: CHET SKY MD 08/03/22 Cefdinir (Cefdinir) 300 Mg Capsule 300 MG PO BID for 10 Days, #20 CAP 0 Refills Prov: CHET SKY MD 08/03/22 CHET SKY MD Aug 03, 2022 18:18
[2022-08-03 18:36] LABS: BASOPHILS % (AUTO) 0 % (0-10); EOSINOPHILS # (AUTO) 0.1 10^3/uL (0.0-0.3); EOSINOPHILS % (AUTO) 1 % (0-10); HEMATOCRIT 33 % (40-54); HEMOGLOBIN 10.7 g/dL (13.3-17.7); LYMPHOCYTES # (AUTO) 0.7 10^3/uL (1.0-4.0); LYMPHOCYTES % (AUTO) 4 % (12-44); MEAN CORPUSCULAR HEMOGLOBIN 29 pg (25-34); MEAN CORPUSCULAR HGB CONC 32 g/dL (32-36); MEAN CORPUSCULAR VOLUME 89 fL (80-99); MONOCYTES % (AUTO) 6 % (0-12); NEUTROPHILS # (AUTO) 14.2 10^3/uL (1.8-7.8); NEUTROPHILS % (AUTO) 88 % (42-75); PLATELET COUNT 346 10^3/uL (130-400); WHITE BLOOD COUNT 16.2 10^3/uL (4.3-11.0)
[2022-08-03] MEDS ORDERED: DOXYCYCLINE 100 MG (VIBRAMYCIN) TABLET PO STA (18:54)
--- NOTE | 2022-08-03 18:57 | Diagnostic Imaging Report ---
EXAMINATION: CT angiography of the chest. TECHNIQUE: Contrast enhanced thin section helical images were obtained through the chest with intravenous contrast timed for the optimal opacification of the arterial structures per CTA protocol. Post-processing, reconstructions and interpretation of angiographic images of the vessels was performed. 3D MIP reconstructions were performed and reviewed. All CT scans use one or more of the following dose optimizing techniques: automated exposure control, MA and/or KvP adjustment based on patient size and exam type or iterative reconstruction. HISTORY: SOB, cough, lymphoma history COMPARISON: 09/15/2019. FINDINGS: Vascular: There is no filling defect within the pulmonary arteries. The thoracic aorta is normal in caliber. Thyroid: The thyroid is normal. Mediastinum: Heart size is normal without significant pericardial effusion. No suspicious lymphadenopathy. Lungs and airways: Patchy groundglass opacities and consolidation throughout both lungs, greatest in the left lung base. There are small bilateral pleural effusions. No pneumothorax. The airways are normal. Upper abdomen: Partially visualized left renal cyst. Musculoskeletal: Degenerative changes of the spine without suspicious osseous lesion or compression fracture. IMPRESSION: 1. No finding of pulmonary embolus. 2. Patchy groundglass opacities and consolidation throughout both lungs concerning for a multifocal pneumonia. Dictated by: Dictated on workstation # [id number]
[2022-08-03 19:00] LABS: BILIRUBIN,TOTAL 0.5 MG/DL (0.1-1.0); CREATININE SERUM 1.23 MG/DL (0.60-1.30); POTASSIUM 3.6 MMOL/L (3.6-5.0)
[2022-08-03] MEDS ORDERED: cefTRIAXone 1 GM PRE-MIX 50 ML IV ONE (19:00)
[2022-08-03 19:01] LABS: ALBUMIN 3.2 GM/DL (3.2-4.5); TOTAL PROTEIN 6.1 GM/DL (6.4-8.2)
[2022-08-03 19:22] LABS: EOSINOPHILS % (MANUAL) 1 %; LYMPHOCYTES % (MANUAL) 3 %; MONOCYTES % (MANUAL) 3 %; NEUTROPHILS % (MANUAL) 93 %
[2022-08-03] MEDS ORDERED: CEFD300C3 PO (19:30)
[2022-08-03] MEDS ORDERED: DOXY100T2 PO (19:30)
[2022-08-03 19:40] VITALS: BP 138/68
== END 2022-08-03 19:40 | disposition home or self-care (01) ==
LOC: EDUNIT# 17:53 → ER FS 17:55
DX: J18.8 Other pneumonia, unspecified organism (principal)
CPT/HCPCS: 36415; 71275; 80053; 83605; 83690; 83735; 83880; 85007; 85027; 86141; 87040; 93005; Q9967

== ENCOUNTER → 2022-08-06 | Outpatient (CLI) | payer MEDICARE, BC ==
[~2022-08-06] MED LIST changes: +BARIUM for suspension 96% w/w (Vanilla Silq Medium Density) PO ONE; +BARIUM for suspension 98% w/w (Vanilla Silq High Density) PO ONE; +CEFD300C3 PO; +DOXY100T2 PO
--- NOTE | 2022-08-06 16:34 | Diagnostic Imaging Report ---
INDICATION: Coughing after eating. Patient ingested effervescent crystals as well as thick barium and imaging of the esophagus was performed. A total of 18 seconds of fluoroscopic time was utilized. Preliminary radiograph of the chest shows a right chest wall port with tip overlying the SVC. The patient took one drink of the thick barium and immediately aspirated a portion. Image demonstrates contrast throughout the mid and distal esophagus which is unremarkable. There is contrast within the trachea. Due to aspiration, the procedure was terminated. IMPRESSION: Very limited study with aspiration during the 1st swallow. No gross abnormality is seen. Consideration could be given to performance of a modified barium swallow with speech pathology. Dictated by: Dictated on workstation # [id number]
== END ==
LOC: RAD 09:15
PROVIDERS: ATTEND Emergency Medicine
DX: K21.9 Gastro-esophageal reflux disease without esophagitis (principal); R05.3 Chronic cough
CPT/HCPCS: 74220

== ENCOUNTER → 2022-08-17 | Outpatient (CLI) | payer MEDICARE, BC ==
[~2022-08-17] MED LIST changes: -BARIUM for suspension 96% w/w (Vanilla Silq Medium Density) PO ONE; -BARIUM for suspension 98% w/w (Vanilla Silq High Density) PO ONE
--- NOTE | 2022-08-17 11:45 | Diagnostic Imaging Report ---
INDICATION: Dysphagia. TECHNIQUE: Procedure was performed in conjunction with speech pathology. Videofluoroscopy was performed during the swallowing of barium with multiple consistencies. A total of 0.7 minutes of fluoroscopic time was utilized. FINDINGS: Patient ingested thin barium as well as applesauce and cracker consistency. There was a single episode of penetration during the swallowing of thin barium at a larger bolus. No aspiration was observed. All other consistencies were unremarkable. No significant vallecular or pyriform sinus residue was detected. There is normal epiglottic tilt and laryngeal elevation. IMPRESSION: Essentially unremarkable modified barium swallow study apart from a single episode of penetration with thin barium with a larger bolus. No aspiration was observed. Dictated by: Dictated on workstation # [id number]
== END ==
LOC: RAD 09:22
PROVIDERS: ATTEND Nurse Practitioner Family
DX: K21.9 Gastro-esophageal reflux disease without esophagitis (principal); R05.3 Chronic cough
CPT/HCPCS: 74230

== ENCOUNTER 2022-12-20 14:46 | Emergency (ER) | payer MEDICARE, BC ==
--- NOTE | 2022-12-20 14:53 | ED General ---
General Chief Complaint: Altered Mental Status Stated Complaint: FEVER; AMS History of Present Illness Date Seen by Provider: Dec 20, 2022 Time Seen by Provider: 14:25 Initial Comments 87 yr M with PMH of Lymphoma/ with recent clear PET scan/ HTN/ recent prolonged pneumonia and UTI and has completed antibiotics, is here with c/o one episode of fever which occurred today morning at 11 AM. Pt's daughter states he woke up at that time with the fever and seemed confused when he woke up, but quickly became re-oriented. Pt is concerned about the possible cause of the fever since he has just been sick for awhile and completed a couple rounds of antibiotics. Pt's daughter also states that her dad has swallowing issues sometimes and he eats his food very fast. There is concer for aspiration as well. Pt had a recent Oncology appointment with Dr. Vernon. Denies abdominal pain, dysuria, chest pain, headache, palpitations, diarrhea, SOB, cough, URI symptoms. Allergies and Home Medications Allergies Coded Allergies: No Known Drug Allergies (Unverified , 05/07/19) Patient Home Medication List Home Medication List Reviewed: Yes Cefdinir (Cefdinir) 300 Mg Capsule, 300 MG PO BID Prescribed by: CHET SKY on 08/03/221929 Ciprofloxacin HCl (Ciprofloxacin HCl) 500 Mg Tablet, 500 MG PO BID Prescribed by: RAGHU SMITH MD on 07/23/22 163 Doxycycline Hyclate (Doxycycline Hyclate) 100 Mg Tablet, 100 MG PO BID Prescribed by: CHET SKY on 08/03/221929 Lisinopril (Lisinopril) 5 Mg Tablet, 5 MG PO DAILY, (Reported) Entered as Reported by: GRICEL AGUILERA on 05/30/22 140 Prednisone (Prednisone) 5 Mg Tablet, 5 MG PO DAILY, (Reported) Entered as Reported by: GRICEL AGUILERA on 05/30/22 1403 Review of Systems Review of Systems Constitutional: see HPI, fever EENTM: no symptoms reported Respiratory: no symptoms reported Cardiovascular: no symptoms reported Gastrointestinal: no symptoms reported Genitourinary: no symptoms reported Musculoskeletal: no symptoms reported Skin: no symptoms reported Psychiatric/Neurological: No Symptoms Reported Hematologic/Lymphatic: No Symptoms Reported Immunological/Allergic: no symptoms reported Past Ijrsbin-Mfhvtp-Bmmnvx Hx Immunizations Up To Date Tetanus Booster (TDap): Unknown First/Initial COVID19 Vaccinat: 2020 Second COVID19 Vaccination Alexy: 2020 Third COVID19 Vaccination Date: 2020 Seasonal Allergies Seasonal Allergies: No Past Medical History Surgery/Hospitalization HX: HTN, arthritis, non-hodgkins lymphoma, appendectomy Surgeries: Yes (hernia x2, knee scope, cataracts,PORT) Appendectomy Respiratory: No Currently Using CPAP: No Currently Using BIPAP: No Cardiac: No Hypertension Neurological: No Sexually Transmitted Disease: No HIV/AIDS: No Genitourinary: No Gastrointestinal: Yes Polyps Musculoskeletal: Yes Arthritis Endocrine: No HEENT: Yes (GLASSES) Loss of Vision: Denies Hearing Impairment: Denies Cancer: Yes Lymphoma Did You Recieve Any Treatments: Yes What Type of Treatment Did You: Chemotherapy Psychosocial: No Integumentary: No Blood Disorders: No Adverse Reaction/Blood Tranf: No (N/A) Physical Exam Vital Signs Vital Signs - First Documented 12/20/22 14:50 Temp 37.9 Pulse 87 Resp 19 B/P (MAP) 128/56 (80) Pulse Ox 96 O2 Delivery Room Air Capillary Refill : Height, Weight, BMI Height: 6'0.00" Weight: 162lbs. 0.0oz. 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 Norm as Tested Skin: Normal Color Focused Exam Lactate Level 12/20/22 15:03: Lactic Acid Level 1.16 Lactic Acid Level Laboratory Tests Test 12/20/22 15:03 Lactic Acid Level 1.16 MMOL/L (0.50-2.00) Procedures/Interventions Suture Size: 4-0 Progress/Results/Core Measures Suspected Sepsis SIRS Temperature: Pulse: Respiratory Rate: Laboratory Tests 12/20/22 15:03: White Blood Count 2.8L Blood Pressure / Mean: 12/20/22 15:03: Lactic Acid Level 1.16 Laboratory Tests 12/20/22 15:03: Creatinine 1.01, Platelet Count 202, Total Bilirubin 0.4 Results/Orders Lab Results Laboratory Tests Test 12/20/22 15:03 12/20/22 15:56 Range/Units White Blood Count 2.8 L 4.3-11.0 10^3/uL Red Blood Count 3.58 L 4.30-5.52 10^6/uL Hemoglobin 9.9 L 13.3-17.7 g/dL Hematocrit 31 L 40-54 % Mean Corpuscular Volume 86 80-99 fL Mean Corpuscular Hemoglobin 28 25-34 pg Mean Corpuscular Hemoglobin Concent 32 32-36 g/dL Red Cell Distribution Width 15.9 H 10.0-14.5 % Platelet Count 202 130-400 10^3/uL Mean Platelet Volume 9.7 9.0-12.2 fL Immature Granulocyte % (Auto) 0 % Neutrophils (%) (Auto) 32 L 42-75 % Lymphocytes (%) (Auto) 24 12-44 % Monocytes (%) (Auto) 40 H 0-12 % Eosinophils (%) (Auto) 3 0-10 % Basophils (%) (Auto) 0 0-10 % Neutrophils # (Auto) 0.9 L 1.8-7.8 10^3/uL Lymphocytes # (Auto) 0.7 L 1.0-4.0 10^3/uL Monocytes # (Auto) 1.1 H 0.0-1.0 10^3/uL Eosinophils # (Auto) 0.1 0.0-0.3 10^3/uL Basophils # (Auto) 0.0 0.0-0.1 10^3/uL Immature Granulocyte # (Auto) 0.0 0.0-0.1 10^3/uL Neutrophils % (Manual) 11 % Lymphocytes % (Manual) 17 % Monocytes % (Manual) 40 % Eosinophils % (Manual) 3 % Basophils % (Manual) 0 % Band Neutrophils 21 % Atypical Lymphocytes 8 % Platelet Estimate NORMAL Hypochromasia 2+ Microcytosis 1+ Elliptocytes SLIGHT Sodium Level 139 135-145 MMOL/L Potassium Level 4.3 3.6-5.0 MMOL/L Chloride Level 104 98-107 MMOL/L Carbon Dioxide Level 25 21-32 MMOL/L Anion Gap 10 5-14 MMOL/L Blood Urea Nitrogen 22 H 7-18 MG/DL Creatinine 1.01 0.60-1.30 MG/DL Estimat Glomerular Filtration Rate 72 BUN/Creatinine Ratio 22 Glucose Level 160 H 70-105 MG/DL Lactic Acid Level 1.16 0.50-2.00 MMOL/L Calcium Level 8.6 8.5-10.1 MG/DL Corrected Calcium 9.0 8.5-10.1 MG/DL Magnesium Level 1.7 1.6-2.4 MG/DL Total Bilirubin 0.4 0.1-1.0 MG/DL Aspartate Amino Transf (AST/SGOT) 17 5-34 U/L Alanine Aminotransferase (ALT/SGPT) 13 0-55 U/L Alkaline Phosphatase 83 40-136 U/L Troponin I < 0.30 <0.30 NG/ML Total Protein 5.4 L 6.4-8.2 GM/DL Albumin 3.5 3.2-4.5 GM/DL Urine Color YELLOW Urine Clarity CLEAR Urine pH 6.0 5-9 Urine Specific Bison 1.020 1.016-1.022 Urine Protein NEGATIVE NEGATIVE Urine Glucose (UA) NEGATIVE NEGATIVE Urine Ketones NEGATIVE NEGATIVE Urine Nitrite NEGATIVE NEGATIVE Urine Bilirubin NEGATIVE NEGATIVE Urine Urobilinogen 0.2 < = 1.0 MG/DL Urine Leukocyte Esterase NEGATIVE NEGATIVE Urine RBC (Auto) TRACE-I H NEGATIVE Urine RBC 2-5 H /HPF Urine WBC RARE /HPF Urine Squamous Epithelial Cells RARE /HPF Urine Crystals NONE /LPF Urine Bacteria NEGATIVE /HPF Urine Casts NONE /LPF Urine Mucus NEGATIVE /LPF Urine Culture Indicated NO My Orders Orders - HAILEY DOYLE MD Chest 1 View Ap/Pa Only (12/20/22 15:29) Cbc With Automated Diff (12/20/22 15:30) Comprehensive Metabolic Panel (12/20/22 15:30) Lactic Acid Analyzer (12/20/22 15:30) Magnesium (12/20/22 15:30) Ua Culture If Indicated (12/20/22 15:30) Troponin I Fs (12/20/22 15:30) Continuous Ekg Monitoring (12/20/22 15:31) Ekg Tracing (12/20/22 15:31) Blood Culture (12/20/22 15:31) Manual Differential (12/20/22 15:03) Vital Signs/I&O 12/20/22 12/20/22 14:50 17:12 Temp 37.9 37.9 Pulse 87 87 Resp 19 19 B/P (MAP) 128/56 (80) 128/56 Pulse Ox 96 96 O2 Delivery Room Air Room Air Capillary Refill : Progress Note : Progress Note 1. FEVER: ASPIRATION PNEUMONITIS < 48 HOURS - CXR: Mild right pleural effusion with right basilar atelectasis and/or pneumonitis. Otherwise, no new abnormality or adverse change is seen. - CBC/CMP: Low white count, normal electrolytes and kidney function - UA: normal - Since aspiration pneumonitis is less than 48 hours, will not give empiric antibiotics at this time as it is not needed, since it can increase antibiotic resistance. - Follow up with Oncology clinic , and call them tomorrow to make appointment for follow up. -The patient was seen in the ED, and treated appropriately to presentation at a specific point in time. Patient is informed that there is a possibility that disease and illness can evolve and change in acuity rapidly or slowly after patient is discharged from the ER. Precautionary advice given to the patient for immediate return to ER if symptoms worsen or do not resolve, and to seek emergency care sooner rather than later. Pt also advised on the importance of PCP follow up and compliance with management and follow up plan with PCP and/or specialist, as this is part of the management plan. Pt verbally expressed und erstanding. Diagnostic Imaging Diagonstic Imaging: Xray Plain Films/CT/US/NM/MRI: chest Comments [facility] [place], [place] NAME: [facility] REC#: [id number] PT STATUS: REG ER : 1935 PHYSICIAN: HAILEY DOYLE MD ADMIT DATE: 12/20/22/ER FS Draft Date of Exam:12/20/22 CHEST 1 VIEW AP/PA ONLY INDICATION: Fever and altered mental status. COMPARISON: 07/23/2022. FINDINGS: Portable AP view of the chest is obtained which reveals increasing right basilar atelectasis and/or pneumonitis. Heart size and pulmonary vascularity are unremarkable and there is no evidence of pneumothorax. There is blunting of the right costophrenic sulcus. IMPRESSION: Mild right pleural effusion with right basilar atelectasis and/or pneumonitis. Otherwise, no new abnormality or adverse change is seen. Dictated on workstation # [id number] Dict: 12/20/22 1600 Trans: 12/20/22 1605 [id number] Interpreted by: STEPHEN EGAN MD Electronically signed by: Departure Impression Primary Impression: Fever Qualified Codes: R50.9 - Fever, unspecified Additional Impression: Aspiration pneumonitis Disposition: HOME, SELF-CARE Condition: Stable Departure-Patient Inst. Referrals: EJ GASPAR DO (PCP/Family) Primary Care Physician Patient Instructions: Pneumonitis, Pneumonitis (DC), Fever, Adult ED Add. Discharge Instructions: - Since aspiration pneumonitis is less than 48 hours, will not give empiric antibiotics at this time as it is not needed - Follow up with Oncology clinic , and call them tomorrow to make appointment for follow up. All discharge instructions reviewed with patient and/or family. Voiced understanding. HAILEY DOYLE MD Dec 20, 2022 14:53
[2022-12-20 15:43] LABS: BASOPHILS % (AUTO) 0 % (0-10); EOSINOPHILS # (AUTO) 0.1 10^3/uL (0.0-0.3); EOSINOPHILS % (AUTO) 3 % (0-10); HEMATOCRIT 31 % (40-54); HEMOGLOBIN 9.9 g/dL (13.3-17.7); LYMPHOCYTES # (AUTO) 0.7 10^3/uL (1.0-4.0); LYMPHOCYTES % (AUTO) 24 % (12-44); MEAN CORPUSCULAR HEMOGLOBIN 28 pg (25-34); MEAN CORPUSCULAR HGB CONC 32 g/dL (32-36); MEAN CORPUSCULAR VOLUME 86 fL (80-99); MEAN PLATELET VOLUME 9.7 fL (9.0-12.2); MONOCYTES # (AUTO) 1.1 10^3/uL (0.0-1.0); MONOCYTES % (AUTO) 40 % (0-12); NEUTROPHILS # (AUTO) 0.9 10^3/uL (1.8-7.8); NEUTROPHILS % (AUTO) 32 % (42-75); PLATELET COUNT 202 10^3/uL (130-400); WHITE BLOOD COUNT 2.8 10^3/uL (4.3-11.0)
[2022-12-20 15:58] LABS: CARBON DIOXIDE 25 MMOL/L (21-32); CHLORIDE 104 MMOL/L (98-107); POTASSIUM 4.3 MMOL/L (3.6-5.0); SODIUM 139 MMOL/L (135-145)
[2022-12-20 15:59] LABS: ALANINE AMINOTRANSFERASE 13 U/L (0-55); ALBUMIN 3.5 GM/DL (3.2-4.5); ALKALINE PHOSPHATASE 83 U/L (40-136); BILIRUBIN,TOTAL 0.4 MG/DL (0.1-1.0); BUN/CREATININE RATIO 22; CALCIUM 8.6 MG/DL (8.5-10.1); CREATININE SERUM 1.01 MG/DL (0.60-1.30); GFR ESTIMATED 72; GLUCOSE 160 MG/DL (70-105); MAGNESIUM 1.7 MG/DL (1.6-2.4); TOTAL PROTEIN 5.4 GM/DL (6.4-8.2)
--- NOTE | 2022-12-20 16:05 | Diagnostic Imaging Report ---
INDICATION: Fever and altered mental status. COMPARISON: 07/23/2022. FINDINGS: Portable AP view of the chest is obtained which reveals increasing right basilar atelectasis and/or pneumonitis. Heart size and pulmonary vascularity are unremarkable and there is no evidence of pneumothorax. There is blunting of the right costophrenic sulcus. IMPRESSION: Mild right pleural effusion with right basilar atelectasis and/or pneumonitis. Otherwise, no new abnormality or adverse change is seen. Dictated by: Dictated on workstation # [id number]
[2022-12-20 16:08] LABS: BILIRUBIN,URINE NEGATIVE (NEGATIVE); CLARITY,URINE CLEAR; COLOR,URINE YELLOW; GLUCOSE, URINE (UA) NEGATIVE (NEGATIVE); KETONES,URINE NEGATIVE (NEGATIVE); LEUKOCYTE ESTERASE ,URINE NEGATIVE (NEGATIVE); NITRITE,URINE NEGATIVE (NEGATIVE); PROTEIN,URINE NEGATIVE (NEGATIVE)
[2022-12-20 16:16] LABS: BACTERIA,URINE NEGATIVE /HPF; SQUAMOUS EPITHELIAL CELL,UR RARE /HPF; WBC,URINE RARE /HPF
[2022-12-20 16:57] LABS: ATYPICAL LYMPHOCYTES 8 %; BAND NEUTROPHILS 21 %; BASOPHILS % (MANUAL) 0 %; EOSINOPHILS % (MANUAL) 3 %; LYMPHOCYTES % (MANUAL) 17 %; MONOCYTES % (MANUAL) 40 %; NEUTROPHILS % (MANUAL) 11 %; PLATELET ESTIMATE NORMAL
[2022-12-20 16:58] LABS: ELLIPT/OVALOCYTES SLIGHT; HYPOCHROMASIA 2+; MICROCYTOSIS 1+
[2022-12-20 17:12] VITALS: BP 128/56
== END 2022-12-20 17:12 | disposition home or self-care (01) ==
LOC: EDUNIT# 14:46 → ER FS 14:47
DX: J69.0 Pneumonitis due to inhalation of food and vomit (principal); J90 Pleural effusion, not elsewhere classified; J98.11 Atelectasis
CPT/HCPCS: 36415; 71045; 80053; 81000; 83605; 83735; 84484; 85007; 85027; 87040; 93005